=== PATIENT | male | born 1955 | race Caucasian/White ===

== ENCOUNTER → 2020-08-31 16:32 | Outpatient (CLI) | payer MEDICARE, SELFPAY ==
[2020-08-31 17:37] LABS: Basophils % 0.4 % (0.1-2.0); Eosinophils # 0.4 K/mm3 (0.0-0.4); Hematocrit 43.7 % (42.0-52.0); Hemoglobin 13.3 g/dL (14.1-18.0); Lymphocytes # 1.2 K/mm3 (0.7-4.5); Lymphocytes % 13.2 % (10-50); Mean Corpuscular HGB Conc 30.4 g/dL (31.8-35.4); Mean Corpuscular Hemoglobin 27.9 pg (27.0-31.2); Mean Corpuscular Volume 91.9 fl (80-94); Monocytes # 0.6 K/mm3 (0.1-1.0); Monocytes % 6.6 % (1.7-9.3); Neutrophils # 6.9 K/mm3 (1.8-7.8); Neutrophils % 75.8 % (37.0-80.0); Platelet Count 251 K/mm3 (142-424); Red Blood Count 4.76 M/mm3 (4.60-6.20); Red Cell Distribution Width 15.9 % (11.5-17.5); White Blood Count 9.1 K/mm3 (4.8-10.8)
[2020-08-31 21:50] LABS: Alanine Aminotransferase 16 U/L (12-78); Albumin Level 4.1 g/dl (3.5-5.0); Albumin/Globulin Ratio 1.2 (1.1-1.8); Alkaline Phosphatase 109 U/L (38-126); Anion Gap 14.2 mEq/L (5-15); Aspartate Amino Transferase 23 U/L (17-59); Bilirubin,Total 0.5 mg/dl (0.2-1.3); Blood Urea Nitrogen 30 mg/dl (9-20); Carbon Dioxide 29 mmol/L (22.0-30.0); Chloride 103 mmol/L (98-107); Chol/HDL Ratio 3.6 (1-3.5); Cholesterol 104 mg/dl (140-200); Estimated Glomerular Filt Rate 27 ml/min (>60); GFR (African American) 33 ML/MIN (>60); Globulin 3.4 g/dL (1.3-3.2); Glucose 76 mg/dl (74-100); HDL Cholesterol 29 mg/dl (40-60); Magnesium 2.2 mg/dl (1.6-2.3); Potassium 5.2 mmoL/L (3.5-5.1); Sodium 141 mmol/L (136-145); Total Protein,Serum 7.5 g/dl (6.3-8.2); Triglycerides 88 mg/dl (30-150); VLDL Cholesterol 18 mg/dL (0-40)
[2020-08-31 22:01] LABS: Direct LDL Cholesterol 54.66 mg/dL (100-129)
[2020-08-31 22:07] LABS: 25-OH Vitamin D, Total 67.8 ng/mL (30-100)
[2020-08-31 22:09] LABS: Hemoglobin A1C 5.8 % (4.0-6.0)
[2020-08-31 22:39] LABS: Vitamin B12 733 pg/mL (239-931)
[2020-08-31 23:33] LABS: Ferritin 24.6 ng/ml (17.9-464)
== END ==
PROVIDERS: Visit Provider Internal Medicine Adolescent Medicine
DX: R19.7 Diarrhea, unspecified (principal); E11.9 Type 2 diabetes mellitus without complications; I73.9 Peripheral vascular disease, unspecified; G25.81 Restless legs syndrome
CPT/HCPCS: 36415; 80053; 80061; 82306; 82607; 82728; 83036; 83735; 84443; 85025

== ENCOUNTER → 2020-11-18 16:24 | Outpatient (CLI) | payer MEDICARE, SELFPAY ==
[2020-11-18 16:59] LABS: Chloride 103 mmol/L (98-107)
[2020-11-18 17:00] LABS: Potassium 5.5 mmoL/L (3.5-5.1); Sodium 137 mmol/L (136-145)
[2020-11-18 17:03] LABS: Anion Gap 11.5 mEq/L (5-15); Blood Urea Nitrogen 18 mg/dl (9-20); Calcium 8.9 mg/dl (8.4-10.2); Carbon Dioxide 28 mmol/L (22.0-30.0); Estimated Glomerular Filt Rate 56 ml/min (>60); GFR (African American) 67 ML/MIN (>60); Glucose 81 mg/dl (74-100)
== END ==
PROVIDERS: Visit Provider Internal Medicine Adolescent Medicine
DX: E11.9 Type 2 diabetes mellitus without complications (principal); A09 Infectious gastroenteritis and colitis, unspecified
CPT/HCPCS: 36415; 80048

== ENCOUNTER → 2020-12-18 14:59 | Outpatient (CLI) | payer MEDICARE, SELFPAY ==
[2020-12-18 16:39] LABS: Basophils # 0.1 K/mm3 (0-0.2); Basophils % 0.7 % (0.1-2.0); Eosinophils # 0.4 K/mm3 (0.0-0.4); Eosinophils % 4.1 % (0.1-12.0); Hematocrit 44.1 % (42.0-52.0); Hemoglobin 13.8 g/dL (14.1-18.0); Lymphocytes # 1.3 K/mm3 (0.7-4.5); Mean Corpuscular HGB Conc 31.4 g/dL (31.8-35.4); Mean Corpuscular Hemoglobin 31.5 pg (27.0-31.2); Mean Corpuscular Volume 100.4 fl (80-94); Mean Platelet Volume 8.3 fl (7.4-10.4); Monocytes # 0.6 K/mm3 (0.1-1.0); Monocytes % 6.5 % (1.7-9.3); Neutrophils # 6.7 K/mm3 (1.8-7.8); Neutrophils % 73.8 % (37.0-80.0); Platelet Count 269 K/mm3 (142-424); Red Blood Count 4.39 M/mm3 (4.60-6.20); Red Cell Distribution Width 15.3 % (11.5-17.5)
[2020-12-18 20:05] LABS: Blood Urea Nitrogen 21 mg/dl (9-20); Calcium 9.3 mg/dl (8.4-10.2); Carbon Dioxide 28 mmol/L (22.0-30.0); Chloride 102 mmol/L (98-107); Estimated Glomerular Filt Rate 47 ml/min (>60); GFR (African American) 57 ML/MIN (>60); Glucose 75 mg/dl (74-100); Sodium 139 mmol/L (136-145)
== END ==
PROVIDERS: Visit Provider Internal Medicine
DX: N18.31 Chronic kidney disease, stage 3a (principal)
CPT/HCPCS: 36415; 80048; 85025

== ENCOUNTER → 2021-02-10 16:07 | Outpatient (CLI) | payer MEDICARE, SELFPAY ==
[2021-02-10 17:38] LABS: Basophils # 0.1 K/mm3 (0-0.2); Basophils % 1.1 % (0.1-2.0); Eosinophils # 0.4 K/mm3 (0.0-0.4); Eosinophils % 3.8 % (0.1-12.0); Hematocrit 49.4 % (42.0-52.0); Hemoglobin 15.3 g/dL (14.1-18.0); Lymphocytes # 1.6 K/mm3 (0.7-4.5); Lymphocytes % 16.6 % (10-50); Mean Corpuscular Hemoglobin 31.1 pg (27.0-31.2); Mean Corpuscular Volume 100.3 fl (80-94); Mean Platelet Volume 8.2 fl (7.4-10.4); Monocytes # 0.4 K/mm3 (0.1-1.0); Monocytes % 4.7 % (1.7-9.3); Neutrophils % 73.9 % (37.0-80.0); Platelet Count 248 K/mm3 (142-424); Red Blood Count 4.92 M/mm3 (4.60-6.20); Red Cell Distribution Width 14.2 % (11.5-17.5); White Blood Count 9.4 K/mm3 (4.8-10.8)
[2021-02-10 17:52] LABS: Chloride 102 mmol/L (98-107)
[2021-02-10 17:53] LABS: Potassium 5.1 mmoL/L (3.5-5.1); Sodium 140 mmol/L (136-145)
[2021-02-10 17:55] LABS: Alanine Aminotransferase 18 U/L (12-78); Alkaline Phosphatase 108 U/L (38-126); Anion Gap 14.1 mEq/L (5-15); Aspartate Amino Transferase 29 U/L (17-59); Bilirubin,Total 0.5 mg/dl (0.2-1.3); Blood Urea Nitrogen 25 mg/dl (9-20); Carbon Dioxide 29 mmol/L (22.0-30.0); Estimated Glomerular Filt Rate 41 ml/min (>60); GFR (African American) 50 ML/MIN (>60)
[2021-02-10 17:56] LABS: Albumin Level 4.5 g/dl (3.5-5.0); Albumin/Globulin Ratio 1.5 (1.1-1.8); Calcium 9.7 mg/dl (8.4-10.2); Chol/HDL Ratio 2.9 (1-3.5); Cholesterol 105 mg/dl (140-200); Glucose 85 mg/dl (74-100); HDL Cholesterol 36 mg/dl (40-60); Total Protein,Serum 7.5 g/dl (6.3-8.2); Triglycerides 86 mg/dl (30-150); VLDL Cholesterol 17 mg/dL (0-40)
[2021-02-10 17:59] LABS: Hemoglobin A1C 5.3 % (4.0-6.0)
[2021-02-10 18:07] LABS: Direct LDL Cholesterol 47.98 mg/dL (100-129)
[2021-02-10 18:31] LABS: Ferritin 20.6 ng/ml (17.9-464)
== END ==
PROVIDERS: Visit Provider Internal Medicine Adolescent Medicine
DX: E11.9 Type 2 diabetes mellitus without complications (principal); I73.9 Peripheral vascular disease, unspecified; G47.19 Other hypersomnia
CPT/HCPCS: 36415; 80053; 80061; 82728; 83036; 83735; 85025

== ENCOUNTER → 2021-03-23 14:49 | Outpatient (CLI) | payer MEDICARE, SELFPAY ==
[2021-03-23 15:30] LABS: Basophils % 0.3 % (0.1-2.0); Eosinophils # 0.3 K/mm3 (0.0-0.4); Eosinophils % 3.4 % (0.1-12.0); Hematocrit 48.4 % (42.0-52.0); Hemoglobin 15.4 g/dL (14.1-18.0); Lymphocytes # 1.4 K/mm3 (0.7-4.5); Mean Corpuscular HGB Conc 31.9 g/dL (31.8-35.4); Mean Corpuscular Hemoglobin 31.2 pg (27.0-31.2); Mean Corpuscular Volume 97.6 fl (80-94); Mean Platelet Volume 6.9 fl (7.4-10.4); Monocytes # 0.6 K/mm3 (0.1-1.0); Monocytes % 6.4 % (1.7-9.3); Neutrophils # 6.5 K/mm3 (1.8-7.8); Platelet Count 234 K/mm3 (142-424); Red Blood Count 4.96 M/mm3 (4.60-6.20); Red Cell Distribution Width 13.9 % (11.5-17.5); White Blood Count 8.8 K/mm3 (4.8-10.8)
[2021-03-23 17:07] LABS: Alanine Aminotransferase 34 U/L (12-78); Albumin Level 4.2 g/dl (3.5-5.0); Albumin/Globulin Ratio 1.4 (1.1-1.8); Alkaline Phosphatase 104 U/L (38-126); Anion Gap 11.3 mEq/L (5-15); Aspartate Amino Transferase 36 U/L (17-59); Bilirubin,Total 0.4 mg/dl (0.2-1.3); Blood Urea Nitrogen 25 mg/dl (9-20); Calcium 9.3 mg/dl (8.4-10.2); Carbon Dioxide 30 mmol/L (22.0-30.0); Chloride 102 mmol/L (98-107); Estimated Glomerular Filt Rate 47 ml/min (>60); GFR (African American) 57 ML/MIN (>60); Glucose 77 mg/dl (74-100); Potassium 5.3 mmoL/L (3.5-5.1); Sodium 138 mmol/L (136-145); Total Protein,Serum 7.2 g/dl (6.3-8.2)
[2021-03-23 17:12] LABS: C-Reactive Protein 37.9 mg/L (0-4)
[2021-03-23 17:32] LABS: Erythrocyte Sedimentation Rate 22 mm/hr (0-20)
== END ==
PROVIDERS: PCP Internal Medicine Adolescent Medicine; Visit Provider Nurse Practitioner Family
DX: R23.4 Changes in skin texture; E11.9 Type 2 diabetes mellitus without complications; Z79.84 Long term (current) use of oral hypoglycemic drugs
CPT/HCPCS: 36415; 80053; 85025; 85651; 86140

== ENCOUNTER 2021-07-07 13:38 | Emergency (ER) | payer OTHER, MEDICARE, MEDICAID, SELFPAY ==
[2021-07-07] VITALS (10 sets, daily range): BP systolic 91–104; BP diastolic 45–74; PULSE 59–65; RESP 18; TEMP 36.8; O2SAT 93–97; BMI 33.0
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
--- NOTE | 2021-07-07 14:12 | PC.NURSE ---
YVONNE [place] aware of low BP; checking it with manual cuff at this time
--- NOTE | 2021-07-07 14:15 | PC.NURSE ---
ED MD at
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
[2021-07-07 15:29] LABS: Basophils # 0.1 K/mm3 (0-0.2); Basophils % 0.2 % (0.1-2.0); Eosinophils % 0.1 % (0.1-12.0); Hematocrit 36.6 % (42.0-52.0); Hemoglobin 11.7 g/dL (14.1-18.0); Lymphocytes # 0.7 K/mm3 (0.7-4.5); Lymphocytes % 2.7 % (10-50); Mean Corpuscular HGB Conc 31.9 g/dL (31.8-35.4); Mean Corpuscular Hemoglobin 31.3 pg (27.0-31.2); Mean Corpuscular Volume 98.1 fl (80-94); Monocytes # 0.5 K/mm3 (0.1-1.0); Monocytes % 2.1 % (1.7-9.3); Neutrophils # 22.3 K/mm3 (1.8-7.8); Neutrophils % 94.8 % (37.0-80.0); Platelet Count 357 K/mm3 (142-424); Red Blood Count 3.73 M/mm3 (4.60-6.20); White Blood Count 23.5 K/mm3 (4.8-10.8)
--- NOTE | 2021-07-07 15:29 | PC.NURSE ---
Notified radiology of pt stating he would go to his CT scans now
[2021-07-07 15:30] LABS: Chloride 104 mmol/L (98-107); Potassium 4.6 mmoL/L (3.5-5.1); Sodium 136 mmol/L (136-145)
[2021-07-07 15:33] LABS: Alanine Aminotransferase 25 U/L (12-78); Albumin Level 3.2 g/dl (3.5-5.0); Albumin/Globulin Ratio 0.9 (1.1-1.8); Alkaline Phosphatase 180 U/L (38-126); Anion Gap 16.6 mEq/L (5-15); Aspartate Amino Transferase 37 U/L (17-59); Bilirubin,Total 0.5 mg/dl (0.2-1.3); Blood Urea Nitrogen 70 mg/dl (9-20); Calcium 8.5 mg/dl (8.4-10.2); Carbon Dioxide 20 mmol/L (22.0-30.0); Creatinine Clearance Estimated 26 mL/min (50-200); Estimated Glomerular Filt Rate 13 ml/min (>60); GFR (African American) 16 ML/MIN (>60); Globulin 3.5 g/dL (1.3-3.2); Glucose 118 mg/dl (74-100); Total Protein,Serum 6.7 g/dl (6.3-8.2)
[2021-07-07 15:40] LABS: MANUAL DIFFERENTIAL MANUAL DIFFERENTIAL (MANUAL DIFF)
--- NOTE | 2021-07-07 15:42 | PC.NURSE ---
pt returned from CT by stretcher with diagnostic tech
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
--- NOTE | 2021-07-07 16:41 | PC.NURSE ---
Contacted MDs; awaiting call back
--- NOTE | 2021-07-07 16:50 | PC.NURSE ---
pt placed on 2 liters of O2 per his sats dropping to 85 while resting; MD made aware. When I placed the pt on the oxygen, he states he was ready to get home because he had things to do and animals to take care of. He also stated that if i thought he was gonna be staying here all night, i was wrong and he would like to speak to the ER MD. Dr. Stuart was notified.
--- NOTE | 2021-07-07 16:54 | PC.NURSE ---
ED MD at
--- NOTE | 2021-07-07 16:59 | PC.NURSE ---
Padmini RN at speaking with patient
--- NOTE | 2021-07-07 17:13 | PC.NURSE ---
contacting [facility] to notify them that patient is choosing to leave AMA. they are aware at this time
--- NOTE | 2021-07-07 17:15 | CARE MANAGER ---
Contacted [employer]. Patient will have to pay private pay. They will be here between 1830 and 1900. Please call [employer] if he finds different ride.
--- NOTE | 2021-07-07 17:20 | PC.NURSE ---
armorer technician went into patient room to see if patient had any needs. pt stated well just so you know i am going home. i am not staying here. armorer technician informed MD. MD went to the bedside to speak with patient about critical findings and importance of patient's impatient care. pt became agitated raising voice at MD. This nurse entered the room to speak with patient. this nurse informed patient of radiology and lab findings and explained why MD was concerned for pt health. pt states i understood every word that doctor said. i know i have a chance of dying on the way home but i have animals at home i have to feed. pt states i want to leave and i know the risks of that. this nurse tried to continue to explain importance of staying at the hospital. pt refused and asked for AMA paper. AMA paper signed by patient, this nurse and latasha dean. pt IV was d/c and pt went to the lobby to wait for transportation.
[2021-07-07 19:01] LABS: Anisocytosis 1+; Lymphocytes % 6 % (10-50); Monocytes % 1 % (2-9); Neutrophils % 93 % (42-76); Platelet Estimate Normal; Total Cells Counted 100
== END 2021-07-07 18:07 | disposition left against medical advice (07) ==
PROVIDERS: Emergency Provider Emergency Medicine; PCP Internal Medicine Adolescent Medicine
DX: M54.2 Cervicalgia (principal); N17.1 Acute kidney failure with acute cortical necrosis; A41.9 Sepsis, unspecified organism; R65.20 Severe sepsis without septic shock; E11.9 Type 2 diabetes mellitus without complications
CPT/HCPCS: 70450; 71046; 71250; 72125; 74176; 80053; 85007; 85025; 96360; 96361; 96375; 99284; J0696

== ENCOUNTER 2021-07-18 12:53 | Emergency (ER) | payer MEDICARE, MEDICAID, SELFPAY ==
[2021-07-18] VITALS (9 sets, daily range): BP systolic 101–132; BP diastolic 40–75; PULSE 72–82; RESP 12–20; TEMP 36.3–36.6; O2SAT 92–97; BMI 32.3
--- NOTE | 2021-07-18 13:00 | PC.NURSE ---
Briana Ayala RN at cleaning up patient
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
--- NOTE | 2021-07-18 13:15 | HMH.EDGENADL ---
ED Disposition Clinical Impression: Colon perforation, Abscess of sigmoid colon Disposition: Xfer Short-Term Hosp Condition on Discharge: Critical Referrals: Saran San MD [Primary Care Provider] - - Critical Care Critical Care Time: Yes Attestation: On 07/18/21, the high probability of a clinically significant, sudden or life threatening deterioration of the following system(s) required my full and direct attention, intervention and personal management. The time I documented below is in addition to time spent performing reported procedures but includes the following listed in this critical care notation. Total Critical Care Time: 35 Vital system(s) involved:: Renal Failure, Shock (Septic) My critical care processes included: Assessment & monitoring of V/S, Initial and Re-exams, Data Review/Interpretation, Coordinating Care, Medication Orders and management, Documentation Medical Decision Making - Medical Records Medical records reviewed: Yes: I reviewed the patient's medical records. - Mick Inquiry Pt receiving controlled substance: No Vital Signs: 07/18/21 12:54 07/18/21 13:30 07/18/21 14:02 Temperature 97.4 F L Temperature Source Oral Pulse Rate 73 78 Pulse Rate [Right Brachial] 72 Respiratory Rate 20 16 Blood Pressure 107/44 L 127/58 L Blood Pressure [Right Arm] 107/44 L Blood Pressure Mean 70 71 Blood Pressure Mean [Right Arm] 65 Blood Pressure Source [Right Arm] Automatic Cuff Blood Pressure Position [Right Arm] Supine 02 Sat by Pulse Oximetry 92 L 92 L 93 L Oxygen Delivery Method Room Air Room Air 07/18/21 14:30 07/18/21 15:00 07/18/21 15:24 Temperature Temperature Source Pulse Rate 77 82 74 Pulse Rate [Right Brachial] Respiratory Rate 17 12 16 Blood Pressure 118/54 L 101/75 L 132/48 L Blood Pressure [Right Arm] Blood Pressure Mean 69 81 78 Blood Pressure Mean [Right Arm] Blood Pressure Source [Right Arm] Blood Pressure Position [Right Arm] 02 Sat by Pulse Oximetry 97 94 L 94 L Oxygen Delivery Method 07/18/21 15:31 Temperature Temperature Source Pulse Rate 76 Pulse Rate [Right Brachial] Respiratory Rate 16 Blood Pressure 114/40 L Blood Pressure [Right Arm] Blood Pressure Mean 64 Blood Pressure Mean [Right Arm] Blood Pressure Source [Right Arm] Blood Pressure Position [Right Arm] 02 Sat by Pulse Oximetry 95 Oxygen Delivery Method - Lab Data Lab Results 07/18/21 13:12: VBG pH 7.15 L, VBG pCO2 31.0 L, VBG pO2 108.2 H, VBG HCO3 10.5 L, VBG Total CO2 11.5 L, VBG O2 Saturation 97.0 H, VBG Base Excess -18.4 L 07/18/21 14:00: WBC 13.6 H, RBC 3.89 L, Hgb 11.9 L, Hct 39.1 L, MCV 100.5 H, MCH 30.6, MCHC 30.5 L, RDW 16.3, Plt Count 480 H, MPV 8.7, Neut % (Auto) 90.5 H, Lymph % (Auto) 5.4 L, [place] % (Auto) 3.1, Eos % (Auto) 0.2, Baso % (Auto) 0.8, Neut # (Auto) 12.3 H, Lymph # (Auto) 0.7, [place] # (Auto) 0.4, Eos # (Auto) 0.0, Baso # (Auto) 0.1, Total Counted 100, Neutrophils % (Manual) 82 H, Band Neutrophils % 6.0, Lymphocytes % (Manual) 10, Monocytes % (Manual) 1 L, Eosinophils % (Manual) 1, Platelet Estimate Slight increase, Macrocytosis 1+ 07/18/21 14:00: Sodium 146 H, Potassium 5.2 H, Chloride 115 H, Carbon Dioxide 9 L*, Anion Gap 27.2 H, BUN 143 H*, Creatinine 5.20 H, Estimated Creat Clear 23, Estimated GFR 11 L*, Est GFR ( Amer) 14 L*, Glucose 139 H, Calcium 8.4, Phosphorus 9.4 H, Magnesium 2.4 H, Total Bilirubin 0.5, AST 41, ALT 22, Alkaline Phosphatase 161 H, Total Creatine Kinase 174 H, Total Protein 7.0, Albumin 3.2 L, Globulin 3.8 H, Albumin/Globulin Ratio 0.8 L 07/18/21 14:00: Lactate 1.0 07/18/21 14:34: Urine Color Yellow, Urine Appearance Clear, Urine pH 5.5, Ur Specific Delta 1.025, Urine Protein Negative, Urine Glucose (UA) Negative, Urine Ketones Negative, Urine Blood Negative, Urine Nitrate Negative, Urine Bilirubin Negative, Urine Urobilinogen 0.2, Ur Leukocyte Esterase Negative, Urine WBC Occasional, Ur Squamous Epith Ce
--- NOTE | 2021-07-18 13:35 | PC.NURSE ---
pt is going for abdominal ct now
--- NOTE | 2021-07-18 13:36 | PC.NURSE ---
pt to with CT director of undergraduate admissions by rianna
--- NOTE | 2021-07-18 13:49 | PC.NURSE ---
pt return from CT; hooked back to monitor
--- NOTE | 2021-07-18 14:07 | PC.NURSE ---
called RT for vbg
--- NOTE | 2021-07-18 14:15 | PC.NURSE ---
[facility] called and is speaking with ROSALINA VALERIO at this time
[2021-07-18 14:20] LABS: VBG Base Excess -18.4 mmol/L (-2.4-2.3); VBG HCO3 10.5 mmol/L (23-30); VBG PO2 108.2 mmol/L (28-40); VBG Total CO2 11.5 mmol/L (23-27)
[2021-07-18 14:22] LABS: VBG PH 7.15 mmol/L (7.31-7.41)
--- NOTE | 2021-07-18 14:26 | PC.NURSE ---
Federico Evans for ER MD
[2021-07-18 14:33] LABS: Basophils # 0.1 K/mm3 (0-0.2); Basophils % 0.8 % (0.1-2.0); Eosinophils % 0.2 % (0.1-12.0); Hematocrit 39.1 % (42.0-52.0); Hemoglobin 11.9 g/dL (14.1-18.0); Lymphocytes # 0.7 K/mm3 (0.7-4.5); Lymphocytes % 5.4 % (10-50); Mean Corpuscular HGB Conc 30.5 g/dL (31.8-35.4); Mean Corpuscular Hemoglobin 30.6 pg (27.0-31.2); Mean Corpuscular Volume 100.5 fl (80-94); Mean Platelet Volume 8.7 fl (7.4-10.4); Monocytes # 0.4 K/mm3 (0.1-1.0); Monocytes % 3.1 % (1.7-9.3); Neutrophils # 12.3 K/mm3 (1.8-7.8); Neutrophils % 90.5 % (37.0-80.0); Platelet Count 480 K/mm3 (142-424); Red Blood Count 3.89 M/mm3 (4.60-6.20); Red Cell Distribution Width 16.3 % (11.5-17.5); White Blood Count 13.6 K/mm3 (4.8-10.8)
[2021-07-18 14:36] LABS: Chloride 115 mmol/L (98-107); Potassium 5.2 mmoL/L (3.5-5.1); Sodium 146 mmol/L (136-145)
[2021-07-18 14:38] LABS: Alanine Aminotransferase 22 U/L (12-78); Alkaline Phosphatase 161 U/L (38-126); Anion Gap 27.2 mEq/L (5-15); Aspartate Amino Transferase 41 U/L (17-59); Bilirubin,Total 0.5 mg/dl (0.2-1.3); Creatine Kinase 174 U/L (55-170); Creatinine Clearance Estimated 23 mL/min (50-200); Estimated Glomerular Filt Rate 11 ml/min (>60); GFR (African American) 14 ML/MIN (>60); Phosphorous 9.4 mg/dl (2.5-4.5)
[2021-07-18 14:39] LABS: Albumin Level 3.2 g/dl (3.5-5.0); Albumin/Globulin Ratio 0.8 (1.1-1.8); Calcium 8.4 mg/dl (8.4-10.2); Globulin 3.8 g/dL (1.3-3.2); Glucose 139 mg/dl (74-100); MANUAL DIFFERENTIAL MANUAL DIFFERENTIAL (MANUAL DIFF); Magnesium 2.4 mg/dl (1.6-2.3)
[2021-07-18 14:50] LABS: Carbon Dioxide 9 mmol/L (22.0-30.0)
--- NOTE | 2021-07-18 14:50 | PC.NURSE ---
lab called with critical result; they were transferred to Briana Ayala RN
[2021-07-18 14:51] LABS: Blood Urea Nitrogen 143 mg/dl (9-20)
--- NOTE | 2021-07-18 14:53 | PC.NURSE ---
ROSALINA VALERIO at speaking with patient
[2021-07-18 15:00] LABS: Microscopic, Urine URINE MICROSCOPIC (MICROSCOPIC)
--- NOTE | 2021-07-18 15:04 | PC.NURSE ---
Dr. Antonia tyson for ED MD
--- NOTE | 2021-07-18 15:07 | PC.NURSE ---
ROSALINA VALERIO on phone with Dr. Knight
[2021-07-18 15:14] LABS: Appearance,Urine CLEAR (Clear); Bilirubin,Urine Negative (Negative); Blood, Urine Negative (Negative); Color,Urine YELLOW (Yellow); Glucose,Urine (UA) Negative (Negative); Ketones,Urine Negative (Negative); Leukocyte Esterase,Urine Negative (Negative); Nitrate,Urine Negative (Negative); PH,Urine 5.5 (5.0-8.5); Protein,Urine Negative (Negative); Specific Gravity, Urine 1.025 (1.005-1.030); Urobilinogen,Urine 0.2 EU/dl (0.2)
--- NOTE | 2021-07-18 15:17 | PC.NURSE ---
ROSALINA VALERIO speaking with Dr. Knight again at this time
--- NOTE | 2021-07-18 15:18 | PC.NURSE ---
spoke with nate in pharmacy about rally pack rate. 250ml/hr approved by pharmacy
--- NOTE | 2021-07-18 15:20 | PC.NURSE ---
Contacting [facility] per ER MDs request for possible transfer
[2021-07-18 15:26] LABS: Amorphous Sediment,Urine Trace /lpf; Bacteria,Urine Trace /lpf; Hyaline Casts,Urine Occasional #/lpf (0); Squamous Epithelial Cell,Urine Occasional #/hpf (0-5); WBC,Urine Occasional #/hpf (0-3)
--- NOTE | 2021-07-18 15:38 | PC.NURSE ---
Awaiting a call back from General Surgery to speak with ROSALINA VALERIO
[2021-07-18 15:46] LABS: Eosinophils % 1 % (0-3); Lymphocytes % 10 % (10-50); Macrocytosis 1+; Monocytes % 1 % (2-9); Neutrophils % 82 % (42-76); Platelet Estimate Slight Increase; Total Cells Counted 100
--- NOTE | 2021-07-18 16:06 | PC.NURSE ---
patient is asleep at this time; still awaiting a call back from general surgery
--- NOTE | 2021-07-18 16:14 | PC.NURSE ---
ER speaking with patient regarding update on POC
--- NOTE | 2021-07-18 16:22 | PC.NURSE ---
Contacted [facility] and spoke with Darryn regarding patient transfer
--- NOTE | 2021-07-18 16:26 | PC.NURSE ---
rupesh bailey rn calling report to [facility]
--- NOTE | 2021-07-18 16:30 | PC.NURSE ---
report called to [facility]
--- NOTE | 2021-07-18 16:34 | PC.NURSE ---
ED MD at [facility] speaking with patient regarding POC; ED MD gave pt a pepsi
--- NOTE | 2021-07-18 16:57 | PC.NURSE ---
pt transferred to EMS stretcher with assist x 4 from ED stretcher without complications. Pt into [facility], assist times 2 without complications.
== END 2021-07-18 17:14 | disposition short-term general hospital (02) ==
PROVIDERS: Emergency Provider Student in an Organized Health Care Education/Training Program; PCP Internal Medicine Adolescent Medicine
DX: K57.20 Diverticulitis of large intestine with perforation and abscess without bleeding (principal); K63.0 Abscess of intestine; E87.2 Acidosis; R41.0 Disorientation, unspecified; E11.9 Type 2 diabetes mellitus without complications
CPT/HCPCS: 51702; 74176; 80053; 81001; 82550; 82803; 83605; 83735; 84100; 85007; 85025; 87040; 96365; 96366; 96367; 99285; J2543

== ENCOUNTER 2021-09-10 08:14 | Emergency (ER) | payer MEDICARE, MEDICAID, SELFPAY ==
[2021-09-10 08:14] VITALS: BP 104/47; PULSE 59; RESP 16; TEMP 36.8; O2SAT 98; BMI 26.4
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
--- NOTE | 2021-09-10 08:41 | HMH.EDGENADL ---
ED Disposition Clinical Impression: Colostomy care Constipation Qualifiers: Constipation type: slow transit constipation Qualified Code(s): K59.01 - Slow transit constipation Disposition: Home, Self-Care Condition on Discharge: Good Instructions: DI for Colonoscopy, How to Care for Your Colostomy or Ileostomy, High-Fiber Diet, DI for Constipation Additional Instructions: You have been evaluated for decreased ostomy output. This is likely due to constipation and a diet. It is very important that you increase your daily intake of fiber. Please include fruits and vegetables in your diet, grains, bran. Inc. water to stay hydrated. Follow-up with Dr. Whitaker at next available appointment. Follow-up with your surgeon from . Return to the emergency department for any new or worsening symptoms, pain, vomiting, other concerns. Referrals: Saran San MD [Primary Care Provider] - Time of Disposition: 10:33 - Critical Care Critical Care Time: No Attestation: On 09/10/21, the high probability of a clinically significant, sudden or life threatening deterioration of the following system(s) required my full and direct attention, intervention and personal management. The time I documented below is in addition to time spent performing reported procedures but includes the following listed in this critical care notation. Medical Decision Making - Medical Records Medical records reviewed: Yes: I reviewed the patient's medical records. - Mick Inquiry Pt receiving controlled substance: No Vital Signs: 09/10/21 08:14 Temperature 98.3 F Temperature Source Oral Pulse Rate [Right Radial] 59 L Respiratory Rate 16 Blood Pressure [Right Arm] 104/47 L Blood Pressure Mean [Right Arm] 66 Blood Pressure Source [Right Arm] Automatic Cuff Blood Pressure Position [Right Arm] Sitting 02 Sat by Pulse Oximetry 98 Oxygen Delivery Method Room Air - Lab Data Lab Results 09/10/21 08:45: WBC 9.4, RBC 3.96 L, Hgb 11.8 L, Hct 40.3 L, MCV 101.9 H, MCH 29.8, MCHC 29.2 L, RDW 16.9, Plt Count 335, MPV 7.7, Neut % (Auto) 70.9, Lymph % (Auto) 15.1, [place] % (Auto) 5.7, Eos % (Auto) 7.4, Baso % (Auto) 0.8, Neut # (Auto) 6.7, Lymph # (Auto) 1.4, [place] # (Auto) 0.5, Eos # (Auto) 0.7 H, Baso # (Auto) 0.1 09/10/21 08:45: Sodium 138, Potassium 4.5, Chloride 106, Carbon Dioxide 26, Anion Gap 10.5, BUN 28 H, Creatinine 1.70 H, Estimated Creat Clear 56, Estimated GFR 41 L, Est GFR ( Amer) 49 L, Glucose 96, Calcium 8.9, Total Bilirubin < 0.1 L, AST 21, ALT 14, Alkaline Phosphatase 110, Total Protein 7.2, Albumin 3.5, Globulin 3.7 H, Albumin/Globulin Ratio 0.9 L, Lipase 59 Result diagrams: 09/10/21 08:45 09/10/21 08:45 Medical Decision Narrative: In summary this is a 66-year-old male with history of diverticulitis with perforation, requiring colostomy presenting to the emergency department with decreased output. Patient clinically stable on arrival. Vital signs within normal limits. He is abdominal pain. No nausea, vomiting, fever, signs of systemic illness. Will obtain screening CBC, CMP, lipase. Will obtain CT scan. Patient has allergy to IV contrast. Will obtain without contrast. Initial laboratory results are reassuring. Creatinine is 1.7, this appears to be near patient's baseline. Electrolytes within normal limits. CT scan of the abdomen and pelvis shows postoperative surgical changes. There is a large amount of retained stool, but no evidence of obstruction. Patient is having output, it is just firm. I believe this is likely due to his diet. He says he eats mostly snacks. Recommended he increase fiber intake with fruits and vegetables. Drink water. He was told that Dr. Whitaker will help him manage his ostomy. He does not think he is going to see a general surgeon at . Given new ostomy supplies in the emergency department. He has no abdominal pain at this time. No nausea. He tolerated a full breakfast tray without difficulty
[2021-09-10 08:54] LABS: Basophils # 0.1 K/mm3 (0-0.2); Basophils % 0.8 % (0.1-2.0); Eosinophils # 0.7 K/mm3 (0.0-0.4); Eosinophils % 7.4 % (0.1-12.0); Hematocrit 40.3 % (42.0-52.0); Hemoglobin 11.8 g/dL (14.1-18.0); Lymphocytes # 1.4 K/mm3 (0.7-4.5); Lymphocytes % 15.1 % (10-50); Mean Corpuscular HGB Conc 29.2 g/dL (31.8-35.4); Mean Corpuscular Hemoglobin 29.8 pg (27.0-31.2); Mean Corpuscular Volume 101.9 fl (80-94); Mean Platelet Volume 7.7 fl (7.4-10.4); Monocytes # 0.5 K/mm3 (0.1-1.0); Monocytes % 5.7 % (1.7-9.3); Neutrophils # 6.7 K/mm3 (1.8-7.8); Neutrophils % 70.9 % (37.0-80.0); Platelet Count 335 K/mm3 (142-424); Red Blood Count 3.96 M/mm3 (4.60-6.20); Red Cell Distribution Width 16.9 % (11.5-17.5); White Blood Count 9.4 K/mm3 (4.8-10.8)
[2021-09-10 09:03] LABS: Alanine Aminotransferase 14 U/L (12-78); Albumin Level 3.5 g/dl (3.5-5.0); Albumin/Globulin Ratio 0.9 (1.1-1.8); Alkaline Phosphatase 110 U/L (38-126); Anion Gap 10.5 mEq/L (5-15); Aspartate Amino Transferase 21 U/L (17-59); Blood Urea Nitrogen 28 mg/dl (9-20); Calcium 8.9 mg/dl (8.4-10.2); Carbon Dioxide 26 mmol/L (22.0-30.0); Chloride 106 mmol/L (98-107); Creatinine Clearance Estimated 56 mL/min (50-200); Estimated Glomerular Filt Rate 41 ml/min (>60); GFR (African American) 49 ML/MIN (>60); Globulin 3.7 g/dL (1.3-3.2); Glucose 96 mg/dl (74-100); Lipase 59 U/L (23-300); Potassium 4.5 mmoL/L (3.5-5.1); Sodium 138 mmol/L (136-145); Total Protein,Serum 7.2 g/dl (6.3-8.2)
--- NOTE | 2021-09-10 09:04 | PC.NURSE ---
PT RETURNED FROM CT AT THIS TIME
[2021-09-10 09:05] VITALS: BP 112/52; PULSE 69; RESP 15; O2SAT 97
[2021-09-10 09:05] LABS: Bilirubin,Total < 0.1 mg/dl (0.2-1.3)
--- NOTE | 2021-09-10 09:26 | PC.NURSE ---
Pt provided with warm blanket.
--- NOTE | 2021-09-10 09:46 | PC.NURSE ---
ED MD AT BEDSIDE TO REEVALUATE PT, PT REQUESTING BREAKFAST TRAY. DIETARY NOTIFIED
--- NOTE | 2021-09-10 09:48 | PC.NURSE ---
Called for patient breakfast tray
[2021-09-10 10:00] VITALS: BP 101/57; PULSE 62; RESP 16; O2SAT 98
--- NOTE | 2021-09-10 10:04 | PC.NURSE ---
REGULAR BREAKFAST TRAY SET-UP AT THIS TIME, PT WITHOUT NEEDS
--- NOTE | 2021-09-10 10:09 | PC.NURSE ---
Spoke with Antonina in Care Management and was advised that once pt is ready for D/C, she will [facility].
--- NOTE | 2021-09-10 10:30 | PC.NURSE ---
Care management is calling [facility] for pt to have transportation back home
--- NOTE | 2021-09-10 11:07 | CARE MANAGER ---
Contacted [facility] for patient to have ride home. Patient to pay privately and agrees to do this.
[2021-09-10 11:31] VITALS: BP 107/49; PULSE 77; RESP 16; O2SAT 98
--- NOTE | 2021-09-10 11:37 | PC.NURSE ---
Patient's transportation has notified us that he will be here in 5-10 minutes
[2021-09-10 12:05] VITALS: BP 111/56; PULSE 62; RESP 18; TEMP 36.8; O2SAT 99
== END 2021-09-10 12:05 | disposition home or self-care (01) ==
PROVIDERS: Emergency Provider Emergency Medicine; PCP Internal Medicine Adolescent Medicine
DX: K59.01 Slow transit constipation (principal); Z43.3 Encounter for attention to colostomy; Z46.89 Encounter for fitting and adjustment of other specified devices
CPT/HCPCS: 74176; 80053; 83690; 85025; 99284

== ENCOUNTER → 2021-10-25 08:43 | Outpatient (CLI) | payer MEDICARE, MEDICAID, SELFPAY ==
--- NOTE | 2021-10-25 08:46 | FL_ITS ---
FINAL REPORT CLINICAL HISTORY: DIVERTICULITIS W/O BLEEDING, REVERSAL OF CHOLOSTOMY BAG FINDINGS: BARIUM ENEMA HISTORY: . Diverticulitis. Previous colon surgery. PROCEDURE: Single-contrast Gastrografinwas introduced by gravity drip. Spot and overhead films were obtained. FINDINGS: Heading Up Machine Operator film demonstrates a left lower quadrant colostomy. Contrast was initially placed through the patient's rectum demonstrating an unremarkable Kristina's pouch. Secondarily, a Graham catheter was placed through the patient's left lower quadrant ostomy and contrast was introduced into retrograde fashion into the patient's colon. There is moderate amount of stool throughout the colon but no annular or constricting lesions. IMPRESSION: Gastrografin enema demonstrating an unremarkable Kristina's pouch. There is retained stool throughout the colon but no annular or constricting lesions. FLUOROSCOPY TIME:2 minutes 30 seconds Films reviewed , interpreted and dictated by Dr. Briggs. Transcribed by Triston Kang PA-C. Reviewed, Interpreted and Dictated by Cedric Briggs MD Transcribed by ISELA Ahuja Authenticated and [facility]
== END ==
PROVIDERS: PCP Internal Medicine Adolescent Medicine; Visit Provider Surgery
DX: K57.20 Diverticulitis of large intestine with perforation and abscess without bleeding (principal)
CPT/HCPCS: 74270

== ENCOUNTER 2021-12-16 17:34 | Emergency (ER) | payer MEDICARE, MEDICAID, SELFPAY ==
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
[2021-12-16 17:59] VITALS: BP 172/88; PULSE 66; RESP 20; TEMP 36.6; O2SAT 98; BMI 26.4
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
[2021-12-16 19:08] VITALS: BP 160/80; PULSE 65; RESP 18; TEMP 36.6; O2SAT 98
== END 2021-12-16 19:10 | disposition home or self-care (01) ==
PROVIDERS: Emergency Provider Student in an Organized Health Care Education/Training Program; PCP Internal Medicine Adolescent Medicine
DX: M54.6 Pain in thoracic spine (principal); M54.2 Cervicalgia; S32.010A Wedge compression fracture of first lumbar vertebra, initial encounter for closed fracture; R20.2 Paresthesia of skin; M62.838 Other muscle spasm; Z79.02 Long term (current) use of antithrombotics/antiplatelets; Z79.1 Long term (current) use of non-steroidal anti-inflammatories (NSAID); Z79.899 Other long term (current) drug therapy; Z91.041 Radiographic dye allergy status; V49.40XA Driver injured in collision with unspecified motor vehicles in traffic accident, initial encounter
CPT/HCPCS: 70450; 72125; 72128; 72131; 99285

== ENCOUNTER 2021-12-19 08:15 | Emergency (ER) | payer MEDICARE, MEDICAID, SELFPAY ==
[2021-12-19 08:19] VITALS: BP 115/59; PULSE 72; RESP 18; TEMP 36.8; O2SAT 100; BMI 25.7
--- NOTE | 2021-12-19 08:30 | PC.NURSE ---
ROSALINA VALERIO at
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
[2021-12-19 10:00] VITALS: BP 120/53; PULSE 70; RESP 18; TEMP 36.8; O2SAT 100
== END 2021-12-19 10:00 | disposition home or self-care (01) ==
PROVIDERS: Emergency Provider Emergency Medicine; PCP Internal Medicine Adolescent Medicine
DX: M79.604 Pain in right leg (principal); M79.671 Pain in right foot; V87.7XXA Person injured in collision between other specified motor vehicles (traffic), initial encounter
CPT/HCPCS: 73552; 73590; 73620; 96372; 99283

== ENCOUNTER 2021-12-29 15:02 | Emergency (ER) | payer MEDICARE, MEDICAID, SELFPAY ==
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
[2021-12-29 16:25] VITALS: BP 124/52; PULSE 67; RESP 15; TEMP 36.4; O2SAT 100; BMI 29.0
[2021-12-29 17:36] VITALS: BP 124/52; PULSE 67; RESP 16; TEMP 36.4
== END 2021-12-29 17:37 | disposition home or self-care (01) ==
PROVIDERS: Emergency Provider Nurse Practitioner Family; PCP Internal Medicine Adolescent Medicine
DX: L03.115 Cellulitis of right lower limb
CPT/HCPCS: 96372; 99212; G0463; J0696

== ENCOUNTER 2022-01-09 13:59 | Emergency (ER) | payer MEDICARE, MEDICAID, SELFPAY ==
[2022-01-09 14:01] VITALS: BP 118/60; PULSE 88; RESP 18; TEMP 36.4; O2SAT 96; BMI 25.7
[2022-01-09 14:30] LABS: POC Glucose,Bedside 131 (70-110)
--- NOTE | 2022-01-09 15:08 | HMH.EDGENADL ---
Discharge Plan Disposition Patient Disposition: Home, Self-Care Condition: Good Prescriptions Prescriptions: No Action Januvia 100 mg tablet 100 mg PO Label Comments: TAKE ONE TABLET BY MOUTH EVERY DAY metoprolol tartrate 25 mg tablet 25 mg PO Label Comments: TAKE ONE TABLET BY MOUTH TWICE DAILY hydralazine 25 mg tablet 25 mg PO Label Comments: TAKE ONE TABLET BY MOUTH EVERY DAY ropinirole 1 mg tablet 1 mg PO Label Comments: TAKE ONE TABLET BY MOUTH THREE TIMES DAILY clindamycin HCl 300 mg capsule 300 mg PO TID 7 Days Qty: 21 0RF tramadol 50 mg tablet 50 mg PO Label Comments: TAKE ONE TABLET BY MOUTH EVERY TWELVE HOURS NEEDED FOR PAIN MAY CAUSE DROWSINESS loperamide 2 mg capsule 2 mg PO Label Comments: TAKE ONE CAPSULE BY MOUTH EVERY 4 HOURS FOR 7 DAYS gabapentin 600 mg tablet 600 mg PO TID lisinopril 10 mg tablet 10 mg PO DAILY duloxetine 60 mg capsule,delayed release(DR/EC) 60 mg PO DAILY atorvastatin 20 mg tablet 20 mg PO DAILY diclofenac sodium [Voltaren Arthritis Pain] 1 % gel 4 g TOPICAL QID Rx Instructions: apply to single knee, ankle, foot; for foot includes sole/toes/top of foot amlodipine 10 mg tablet 10 mg PO DAILY trazodone 100 mg tablet 100 mg PO DAILY clopidogrel 75 mg tablet 75 mg PO DAILY donepezil 10 mg tablet 10 mg PO HS furosemide 20 mg tablet 20 mg PO DAILY multivitamin [Multiple Vitamins] Tablet 1 tab PO DAILY methocarbamol [Methocarbamol] 750 mg tablet 750 mg PO Q6 PRN (Reason: Muscle Spasm) Qty: 30 0RF sulfamethoxazole-trimethoprim [Bactrim DS] 800-160 mg Tablet 1 tab PO BID Qty: 20 0RF cephalexin 500 mg capsule 500 mg PO QID Qty: 40 0RF Referrals Follow up/Referrals: Saran San MD [Primary Care Provider] - See instructions Activity Restrictions/Add. Instructions Additional Instructions/Restrictions: Please check with your primary care physician and ask if they can prescribe you home health to come to your home to help with dressing changes. Also call your surgeon and let them know you are having difficulty changing the dressings. Please keep surgical site clean and dry. Return if worsening pain, purulent white drainage or any other concerning signs of infection. Clinical Impressions Clinical Impression: Visit for wound check Instructions Patient Instructions: How to Care for a Surgical Wound Print Language Print Language: Togolese Discharge ED Provider: Isabel Lehman General Adult HPI General Chief complaint: Recheck/Abnormal Lab/Rx Stated complaint: surgical site dressing trouble Time Seen by Provider: 01/09/22 14:15 Mode of Arrival: Ambulatory Source of Information: Patient Limitations: No Limitations Description of Symptoms (Recalled from ER Triage Doc. by RN): pt reports he had a colostomy reversal on monday of last week, pt reports d/c from the hospital on monday. Pt reports is suppsed to change the dressing to his wound daily with packing. Pt reports his was unable to change the dressing at home. Pt presents to ED with packing strips. Pt reports the nurse production assembly supervisor for his doctor at told him to come to the ER and get an order for home health to get his dressing changed daily. History of Present Illness HPI narrative: Mr. Boothe is a 66 yo male presenting to the ED for concern for dressing changes on his s/p colostomy revision 03/10 to bowel perforation. Patient had colostomy reversal at w/ Dr. Mcclain a few weeks prior. Patient has long vertical midline incision along w/. smaller open wound to the left of incision which has packing in it. Patient was instructed to change the packing daily however he reports him and his attempted and were not successful. he would like home health consult to assist with changes. Patient has not notified the surgeon as of yet. Onset (ago)
[2022-01-09 15:49] VITALS: BP 118/60; PULSE 88; RESP 18; TEMP 36.4; O2SAT 96
== END 2022-01-09 15:49 | disposition home or self-care (01) ==
PROVIDERS: Emergency Provider Student in an Organized Health Care Education/Training Program; PCP Internal Medicine Adolescent Medicine
DX: Z48.815 Encounter for surgical aftercare following surgery on the digestive system; Z79.899 Other long term (current) drug therapy
CPT/HCPCS: 82962; 99282

== ENCOUNTER 2022-01-18 08:13 | Emergency (ER) | payer MEDICARE, MEDICAID, SELFPAY ==
[2022-01-18 08:30] VITALS: BP 137/69; PULSE 70; O2SAT 100
[2022-01-18 08:45] VITALS: BP 137/69; PULSE 76; RESP 18; TEMP 36.6; O2SAT 97; BMI 27.1
--- NOTE | 2022-01-18 08:46 | HMH.EDGENADL ---
Discharge Plan Disposition Patient Disposition: Home, Self-Care Condition: Good Prescriptions Prescriptions: No Action Januvia 100 mg tablet 100 mg PO Label Comments: TAKE ONE TABLET BY MOUTH EVERY DAY metoprolol tartrate 25 mg tablet 25 mg PO Label Comments: TAKE ONE TABLET BY MOUTH TWICE DAILY hydralazine 25 mg tablet 25 mg PO Label Comments: TAKE ONE TABLET BY MOUTH EVERY DAY ropinirole 1 mg tablet 1 mg PO Label Comments: TAKE ONE TABLET BY MOUTH THREE TIMES DAILY clindamycin HCl 300 mg capsule 300 mg PO TID 7 Days Qty: 21 0RF tramadol 50 mg tablet 50 mg PO Label Comments: TAKE ONE TABLET BY MOUTH EVERY TWELVE HOURS NEEDED FOR PAIN MAY CAUSE DROWSINESS loperamide 2 mg capsule 2 mg PO Label Comments: TAKE ONE CAPSULE BY MOUTH EVERY 4 HOURS FOR 7 DAYS gabapentin 600 mg tablet 600 mg PO TID lisinopril 10 mg tablet 10 mg PO DAILY duloxetine 60 mg capsule,delayed release(DR/EC) 60 mg PO DAILY atorvastatin 20 mg tablet 20 mg PO DAILY diclofenac sodium [Voltaren Arthritis Pain] 1 % gel 4 g TOPICAL QID Rx Instructions: apply to single knee, ankle, foot; for foot includes sole/toes/top of foot amlodipine 10 mg tablet 10 mg PO DAILY trazodone 100 mg tablet 100 mg PO DAILY clopidogrel 75 mg tablet 75 mg PO DAILY donepezil 10 mg tablet 10 mg PO HS furosemide 20 mg tablet 20 mg PO DAILY multivitamin [Multiple Vitamins] Tablet 1 tab PO DAILY methocarbamol [Methocarbamol] 750 mg tablet 750 mg PO Q6 PRN (Reason: Muscle Spasm) Qty: 30 0RF sulfamethoxazole-trimethoprim [Bactrim DS] 800-160 mg Tablet 1 tab PO BID Qty: 20 0RF cephalexin 500 mg capsule 500 mg PO QID Qty: 40 0RF Referrals Follow up/Referrals: Saran San MD [Primary Care Provider] - See instructions Activity Restrictions/Add. Instructions Additional Instructions/Restrictions: [id number] acetaminophen for pain. Dr. San to see you at home in 2 days regarding suture removal. Clean wounds with soap and water daily and reapply bandages. Keep scheduled appointments at [facility]. Return to emergency room if increasing pain, fever, redness, worsening drainage, vomiting, or other symptoms of concern. Clinical Impressions Clinical Impression: Encounter for postoperative wound check Discharge ED Provider: Jb Mclean General Adult HPI General Chief complaint: Skin/Abscess/Foreign Body Stated complaint: Abd pain post op 01/03 colon Time Seen by Provider: 01/18/22 08:55 History of Present Illness HPI narrative: Patient complains of abdominal pain. States that he had a colostomy reversal 2 weeks ago [facility]. He says that this morning about 5 AM he started having increasing pain which she believes is from his karlie. He would like them checked. He says he is hoping to get his karlie out in 2 days when his primary care provider, Dr. San, visits him at home. He has 2 surgical wounds on his abdomen, he has a long midline incision which still has karlie in place and he has a hole to the left of that which she says is still draining. He denies fever. He states he is taking ibuprofen intermittently for pain which helps. He states the prescribed pain medications do not help him and he is hoping to get a shot. He drove himself to the emergency department. He states he also wants his blood sugar checked. Related Data Home Medications Medication Instructions Recorded Confirmed amlodipine 10 mg tablet 10 mg PO DAILY 12/21/20 04/01/21 atorvastatin 20 mg tablet 20 mg PO DAILY 12/21/20 04/01/21 clopidogrel 75 mg tablet 75 mg PO DAILY 12/21/20 04/01/21 diclofenac sodium 1 % topical gel 4 g topical QID 12/21/20 04/01/21 (Voltaren Arthritis Pain) donepezil 10 mg tablet 10 mg PO HS 12/21/20 04/01/21 duloxetine 60 mg capsul
[2022-01-18 09:16] LABS: POC Glucose,Bedside 77 (70-110)
[2022-01-18 09:48] VITALS: BP 144/79; PULSE 73; RESP 20; TEMP 36.6; O2SAT 97
== END 2022-01-18 09:51 | disposition home or self-care (01) ==
PROVIDERS: Emergency Provider Emergency Medicine; PCP Internal Medicine Adolescent Medicine
DX: R10.9 Unspecified abdominal pain (principal); Z48.89 Encounter for other specified surgical aftercare; Z79.899 Other long term (current) drug therapy
CPT/HCPCS: 82962; 99282

== ENCOUNTER → 2022-03-04 10:16 | Outpatient (CLI) | payer MEDICARE, SELFPAY ==
[2022-03-04 12:10] LABS: T4 (Thyroxine) 6.2 ug/dl (5.53-11.0)
[2022-03-04 12:12] LABS: Hemoglobin A1C 5.5 % (4.0-6.0)
[2022-03-04 12:23] LABS: Thyroid Stimulating Hormone 0.52 uIU/mL (0.465-4.68)
[2022-03-04 12:42] LABS: Vitamin B12 614 pg/mL (239-931)
[2022-03-07 15:06] LABS: Immunoglobulin A, Qn 586 mg/dL (61-437); Immunoglobulin G, Qn 2845 mg/dL (603-1613); Immunoglobulin M, Qn 489 mg/dL (20-172)
[2022-03-07 20:55] LABS: Vitamin B6 2.7 ug/L (3.4-65.2)
[2022-03-09 12:11] LABS: Hemoglobin 8.4 g/dL (14.1-18.0); Red Blood Count 3.34 M/mm3 (4.60-6.20); White Blood Count 11.1 K/mm3 (4.8-10.8)
[2022-03-09 12:12] LABS: Mean Corpuscular HGB Conc 29.8 g/dL (31.8-35.4); Mean Corpuscular Hemoglobin 25.1 pg (27.0-31.2); Platelet Count 611 K/mm3 (142-424); Potassium 4.5 mmoL/L (3.5-5.1); Red Cell Distribution Width 19.5 % (11.5-17.5); Sodium 141 mmol/L (136-145)
[2022-03-09 12:13] LABS: Anion Gap 13.5 mEq/L (5-15); Blood Urea Nitrogen 22 mg/dl (9-20); Carbon Dioxide 30 mmol/L (22.0-30.0); Chloride 102 mmol/L (98-107); Estimated Glomerular Filt Rate 36 ml/min (>60); GFR (African American) 43 ML/MIN (>60)
[2022-03-09 12:18] LABS: Alanine Aminotransferase 12 U/L (12-78); Albumin Level 3.7 g/dl (3.5-5.0); Albumin/Globulin Ratio 0.7 (1.1-1.8); Aspartate Amino Transferase 17 U/L (17-59); Bilirubin,Total 0.4 mg/dl (0.2-1.3); Globulin 5.3 g/dL (1.3-3.2); Glucose 103 mg/dl (74-100)
[2022-03-09 12:19] LABS: Alkaline Phosphatase 99 U/L (38-126)
[2022-03-09 12:22] LABS: Prealbumin 13
== END ==
PROVIDERS: Psychiatry & Neurology Neurology; PCP Internal Medicine Adolescent Medicine; Visit Provider Surgery
DX: R26.81 Unsteadiness on feet (principal); R79.9 Abnormal finding of blood chemistry, unspecified; R20.2 Paresthesia of skin
CPT/HCPCS: 36415; 80053; 82607; 82784; 83036; 84134; 84207; 84436; 84443; 85014; 85018; 85048; 85049; 86334

== ENCOUNTER → 2022-03-07 15:48 | Outpatient (CLI) | payer MEDICARE, SELFPAY | PROVIDERS: PCP Internal Medicine Adolescent Medicine; Visit Provider Psychiatry & Neurology Neurology | DX: R26.81 Unsteadiness on feet (principal); R29.898 Other symptoms and signs involving the musculoskeletal system ==

== ENCOUNTER → 2022-03-15 11:11 | Outpatient (CLI) | payer MEDICARE, SELFPAY ==
--- NOTE | 2022-03-15 11:15 | MR_ITS ---
FINAL REPORT CLINICAL HISTORY: LEG WEAKNESS...INSTABILITY. falling frequently. headache FINDINGS: Multi planar MR imaging was obtained through the brain without contrast. The midline structures appear intact. There is no evidence of Chiari malformation. On T2 and flair axial images the brain parenchyma is homogeneous. On diffusion-weighted images there is no evidence of restricted diffusion. The visualized paranasal sinuses demonstrate normal signal voids. The seventh and eighth nerve root complexes are intact. IMPRESSION: Essentially unremarkable nonenhanced brain MRI. Reviewed, Interpreted and Dictated by Cedric Briggs MD Transcribed by [employer] and [facility]
== END ==
PROVIDERS: PCP Internal Medicine Adolescent Medicine; Visit Provider Psychiatry & Neurology Neurology
DX: R26.81 Unsteadiness on feet (principal); R29.898 Other symptoms and signs involving the musculoskeletal system
CPT/HCPCS: 70551

== ENCOUNTER 2022-06-11 16:57 | Observation (INO) | payer MEDICARE, MEDICAID, SELFPAY ==
[2022-06-11] VITALS (10 sets, daily range): BP systolic 117–144; BP diastolic 53–78; PULSE 47–56; RESP 12–19; TEMP 36.5–36.8; O2SAT 93–100; BMI 27.1; BMI 25.9
--- NOTE | 2022-06-11 17:27 | HMH.EDGENADL ---
Discharge Plan Disposition Chief Complaint: Wound/Laceration Discharge ED Provider: Magda Almendarez General Adult HPI General Chief complaint: Wound/Laceration Stated complaint: foot pain Time Seen by Provider: 06/11/22 17:06 Mode of Arrival: EMS Source of Information: Patient and EMS Limitations: Physical Limitations Description of Symptoms (Recalled from ER Triage Doc. by RN): 66 M presents via EMS from home for c/o bilateral foot infection. EMS reports when they arrived to patient's home is was in total disarray and infested with bedbugs. Patient appeared unkept with socks that appeared to be melted to his feet. Upon assessment here, patient is infested with bed bugs and his socks are covered with serosanguineous fluid mixed with dried brown/black/yellow discharge from open wounds to his feet. Foul odor noted from these wounds. Patient reports he didn't have a ride so he just didn't come. History of Present Illness HPI narrative: This patient is a 66-year-old male with a history of diabetes, peripheral neuropathy, obesity, chronic foot wound status post amputation of multiple toes, and CKD presenting to the emergency department requesting evaluation of wounds on his feet. He is brought in by EMS. He states that he had seen podiatry in the past for his feet, but he stopped going. He also states that he has not been following regularly with a doctor. EMS noted that on scene, he was in disarray and his home is infested with bedbugs. They stated that he appeared unkept with socks that appear to be melted to his feet. Here, the patient was noted to be covered in bedbugs and his socks were drenched in serosanguineous fluid from his wounds on his feet. They were stuck to his feet. Patient denies any other concerns, such as fevers, chills, chest pain, shortness of breath, abdominal pain, nausea, vomiting, change in bowel movements, or other issues. He does note chronic right greater than left swelling to his legs, but no new changes. Related Data Home Medications Medication Instructions Recorded Confirmed amlodipine 10 mg tablet 10 mg PO DAILY 12/21/20 04/01/21 atorvastatin 20 mg tablet 20 mg PO DAILY 12/21/20 04/01/21 clopidogrel 75 mg tablet 75 mg PO DAILY 12/21/20 04/01/21 diclofenac sodium 1 % topical gel 4 g topical QID 12/21/20 04/01/21 (Voltaren Arthritis Pain) donepezil 10 mg tablet 10 mg PO HS 12/21/20 04/01/21 duloxetine 60 mg capsule,delayed 60 mg PO DAILY 12/21/20 04/01/21 release furosemide 20 mg tablet 20 mg PO DAILY 12/21/20 04/01/21 gabapentin 600 mg tablet 600 mg PO TID 12/21/20 04/01/21 lisinopril 10 mg tablet 10 mg PO DAILY 12/21/20 04/01/21 multivitamin (Multiple Vitamins 1 tab PO DAILY 12/21/20 04/01/21 tablet) trazodone 100 mg tablet 100 mg PO DAILY 12/21/20 04/01/21 hydralazine 25 mg tablet 25 mg PO 03/22/21 04/01/21 metoprolol tartrate 25 mg tablet 25 mg PO 03/22/21 04/01/21 ropinirole 1 mg tablet 1 mg PO 03/22/21 04/01/21 sitagliptin phosphate 100 mg 100 mg PO 03/22/21 04/01/21 tablet (Januvia) loperamide 2 mg capsule 2 mg PO 04/01/21 04/01/21 tramadol 50 mg tablet 50 mg PO 04/01/21 04/01/21 Previous Rx's Medication Instructions Recorded clindamycin HCl 300 mg capsule 300 mg PO TID DIABETIC FOOT ULCERS 03/25/21 7 days #21 caps methocarbamol 750 mg tablet 750 mg PO Q6 PRN Muscle Spasm #30 12/16/21 tabs cephalexin 500 mg capsule 500 mg PO QID #40 caps 12/29/21 sulfamethoxazole 800 1 tab PO BID #20 tabs 12/29/21 mg-trimethoprim 160 mg tablet (Bactrim DS) Allergies Allergy/AdvReac Type Severity Reaction Status Date / Time Iodinated Contrast Media Allergy Intermediate Confusion Verified 12/29/21 16:28 red dye Allergy Verified 12/29/21 16:28 [facility] Disclaimer: The information contained in this section may have been updated after the patient was seen, as this information can be updated by other users. Social History Smo
--- NOTE | 2022-06-11 17:28 | XR_ITS ---
PROCEDURE INFORMATION: Exam: XR Left Foot Exam date and time: 06/11/2022 5:58 PM Age: 66 years old Clinical indication: Swelling, leg or foot; Additional info: Swelling, wounds TECHNIQUE: Imaging protocol: Radiologic exam of the left foot. Views: 3 or more views. COMPARISON: No relevant prior studies available. FINDINGS: Bones/joints: Amputation of the left 2nd toe at the level of the proximal phalanx. Proximal phalangeal stump unremarkable. Soft tissues: Normal. IMPRESSION: No evidence of acute osseous injury.
--- NOTE | 2022-06-11 17:28 | XR_ITS ---
PROCEDURE INFORMATION: Exam: XR Right Foot Exam date and time: 06/11/2022 5:58 PM Age: 66 years old Clinical indication: Swelling, leg or foot; Additional info: Swelling, wounds TECHNIQUE: Imaging protocol: Radiologic exam of the right foot. Views: 3 or more views. COMPARISON: CR XR FOOT RT 2V 12/19/2021 9:01 AM FINDINGS: Bones/joints: Amputation of the 4th and 5th rays at the level of the metatarsal bones just distal to the tarsometatarsal articulation. Interim development of periosteal reaction base of the 1st metatarsal more subtle changes of periosteal reaction demonstrated in association with the 2nd and 3rd metatarsals. Findings suggestive of developing osteomyelitis . Recommend follow-up with magnetic resonance imaging without and with contrast. Soft tissues: Diffuse soft tissue swelling dorsal and plantar aspect of the mid and forefoot. Fragmentation and lysis at the level of the tarsometatarsal articulations. Findings compatible with Charcot joint. IMPRESSION: 1. Interim development of periosteal reaction base of the 1st metatarsal, 2nd and 3rd metatarsals. Findings suggestive of developing osteomyelitis . Recommend follow-up with magnetic resonance imaging without and with contrast. 2. Findings compatible with Charcot joint at the level of the tarsal metatarsal articulations.
[2022-06-11 17:40] LABS: Basophils % 0.2 % (0.1-2.0); Eosinophils # 0.4 K/mm3 (0.0-0.4); Eosinophils % 3.9 % (0.1-12.0); Hematocrit 25.8 % (42.0-52.0); Hemoglobin 7.7 g/dL (14.1-18.0); Lymphocytes # 0.9 K/mm3 (0.7-4.5); Lymphocytes % 8.8 % (10-50); Mean Corpuscular HGB Conc 29.8 g/dL (31.8-35.4); Mean Corpuscular Hemoglobin 21.9 pg (27.0-31.2); Mean Corpuscular Volume 73.4 fl (80-94); Monocytes # 0.6 K/mm3 (0.1-1.0); Monocytes % 5.5 % (1.7-9.3); Neutrophils # 8.1 K/mm3 (1.8-7.8); Neutrophils % 81.7 % (37.0-80.0); Platelet Count 482 K/mm3 (142-424); Red Blood Count 3.51 M/mm3 (4.60-6.20); Red Cell Distribution Width 21.9 % (11.5-17.5); White Blood Count 9.9 K/mm3 (4.8-10.8)
[2022-06-11 17:45] LABS: Alanine Aminotransferase 15 U/L (12-78); Albumin Level 3.4 g/dl (3.5-5.0); Albumin/Globulin Ratio 0.6 (1.1-1.8); Alkaline Phosphatase 101 U/L (38-126); Anion Gap 14.4 mEq/L (5-15); Aspartate Amino Transferase 25 U/L (17-59); Bilirubin,Total 0.3 mg/dl (0.2-1.3); Blood Urea Nitrogen 25 mg/dl (9-20); Calcium 8.3 mg/dl (8.4-10.2); Carbon Dioxide 28 mmol/L (22.0-30.0); Chloride 103 mmol/L (98-107); Creatinine Clearance Estimated 56 mL/min (50-200); Estimated Glomerular Filt Rate 41 ml/min (>60); GFR (African American) 49 ML/MIN (>60); Globulin 5.3 g/dL (1.3-3.2); Glucose 106 mg/dl (74-100); Lactic Acid 1.1 mmol/L (0.7-2.1); Potassium 4.4 mmoL/L (3.5-5.1); Sodium 141 mmol/L (136-145); Total Protein,Serum 8.7 g/dl (6.3-8.2)
[2022-06-11 17:50] LABS: C-Reactive Protein 85.9 mg/L (0-4)
[2022-06-11 18:28] LABS: Erythrocyte Sedimentation Rate > 140 mm/hr (0-20)
--- NOTE | 2022-06-11 18:45 | PC.NURSE ---
DR SLOAN SPEAKING WITH DR MAHER
--- NOTE | 2022-06-11 18:49 | PC.NURSE ---
SHANK SANDER NOTIFIED OF ADMISSION
[2022-06-11 19:11] LABS: Coronavirus 19, PCR Not Detected (NotDetected); Influenza A, PCR Not Detected (NotDetected); Influenza B, PCR Not Detected (NotDetected)
--- NOTE | 2022-06-11 19:59 | PC.NURSE ---
PT. ARRIVED TO FLOOR AT THIS TIME
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
[2022-06-11 21:39] LABS: POC Glucose,Bedside 97 (70-110)
[2022-06-12] VITALS (16 sets, daily range): BP systolic 104–143; BP diastolic 34–69; PULSE 46–71; RESP 18–20; TEMP 36.4–37.2; O2SAT 90–99; BMI 27.2
--- NOTE | 2022-06-12 04:49 | PC.WOUNDNOTE ---
Dressing placed on right foot: betadine soaked 4x4 dry 4x4 on top wrapped in kerlix
--- NOTE | 2022-06-12 04:50 | PC.WOUNDNOTE ---
dressing place on right heel: betadine soaked 4x4 dry 4x4 wrapped in kerlix heel floaters in place
--- NOTE | 2022-06-12 04:51 | PC.WOUNDNOTE ---
[employer] flower dressings placed on bilateral hips for pressure support
--- NOTE | 2022-06-12 04:52 | PC.WOUNDNOTE ---
Pt's bottom on admission pressure dressing placed for added protection on coccyx
--- NOTE | 2022-06-12 04:53 | PC.WOUNDNOTE ---
Scattered abrasions noted to right arm and right leg
--- NOTE | 2022-06-12 04:53 | PC.WOUNDNOTE ---
multiple scabbed areas noted to pt's scalp
--- NOTE | 2022-06-12 06:07 | PC.NURSE ---
HAS RESTED WELL SINCE ADMISSION. RECEIVED BATH UPON ARRIVAL DUE TO BED BUG INFESTATION. HAS NUMEROUS BUG BITE-SCABS ALL OVER HIS BODY. SEE PHOTOS OF SKIN CONDITIONS AND FOOT ULCERS. CONSULT TO CARE MANAGEMENT PENDING.
[2022-06-12 06:11] LABS: POC Glucose,Bedside 83 (70-110)
--- NOTE | 2022-06-12 07:44 | EXP.ACUTE.PN ---
Subjective *Date: 06/12/22 *Time: 13:20 Interval history: Patient denies any foot pain today. Appears chronically ill. Denies any shortness of breath, nausea, vomiting, fevers overnight. Nursing performing wound care on feet during exam. Medical Exam Vital signs and Labs for Last 24 Hours: Vital Signs Temp Pulse Pulse Resp BP BP Pulse Ox 06/12/22 07:32 97.8 F 63 18 118/54 L 90 L 06/12/22 04:00 97.6 F 58 L 18 116/57 L 96 06/12/22 00:00 97.6 F 58 L 18 128/56 L 93 L 06/11/22 20:00 100 06/11/22 19:59 97.7 F 50 L 18 144/68 H 100 06/11/22 19:45 98.3 F 54 L 14 137/78 06/11/22 19:30 16 134/59 L 98 06/11/22 19:00 49 L 12 128/64 98 06/11/22 18:01 14 124/56 L 06/11/22 17:30 56 L 12 117/53 L 97 06/11/22 17:15 50 L 12 100 06/11/22 17:10 47 L 12 100 06/11/22 16:57 98.3 F 50 L 19 129/59 L 93 L Intake and Output 06/11/22 06/11/22 06/12/22 15:59 23:59 07:59 Intake Total 1085 / 1085 Output Total 150 / 150 Balance 935 / 935 Intake: Intake, Oral Amount 360 / 360 Intake, Other Amount 125 / 125 Intake, Total IV Amount 600 / 600 Metronidaz/Sod Chl 500 mg In 100 / 100 100 ml @ 100 mls/hr IV Q8H [facility] Rx#:[id number] Vancomycin HCl 2,000 mg In 0.9 500 / 500 % Sodium Chloride 500 ml @ 250 mls/hr IV ONCE ONE Rx#:[id number] Output: Output, Urine Amount 150 / 150 Other: Number of Bowel Movements 1 Weight 86.664 kg 91.257 kg Patient Weight 06/12/22 23:59 Weight 91.257 kg Laboratory Results - last 24 hr 06/11/22 17:00: WBC 9.9, RBC 3.51 L, Hgb 7.7 L, Hct 25.8 L, MCV 73.4 L, MCH 21.9 L, MCHC 29.8 L, RDW 21.9 H, Plt Count 482 H, MPV 7.0 L, Neut % (Auto) 81.7 H, Lymph % (Auto) 8.8 L, [place] % (Auto) 5.5, Eos % (Auto) 3.9, Baso % (Auto) 0.2, Neut # (Auto) 8.1 H, Lymph # (Auto) 0.9, [place] # (Auto) 0.6, Eos # (Auto) 0.4, Baso # (Auto) 0.0, ESR > 140 H 06/11/22 17:00: Sodium 141, Potassium 4.4, Chloride 103, Carbon Dioxide 28, Anion Gap 14.4, BUN 25 H, Creatinine 1.70 H, Estimated Creat Clear 56, Estimated GFR 41 L, Est GFR ( Amer) 49 L, Glucose 106 H, Calcium 8.3 L, Total Bilirubin 0.3, AST 25, ALT 15, Alkaline Phosphatase 101, C-Reactive Protein 85.9 H, Total Protein 8.7 H, Albumin 3.4 L, Globulin 5.3 H, Albumin/Globulin Ratio 0.6 L 06/11/22 17:00: Lactate 1.1 06/11/22 18:30: SARS-CoV-2 (PCR) Not detected, Influenza A Untype (PCR) Not detected, Influenza Type B (PCR) Not detected 06/11/22 21:31: POC Glucose 97 06/12/22 05:46: POC Glucose 83 I & O for Labs for Last 24 Hours: Intake & Output 06/09/22 06/10/22 06/11/22 06/12/22 23:59 23:59 23:59 23:59 Intake Total 1085 / 1085 Output Total 150 / 150 Balance 935 / 935 Weight 86.664 kg 91.257 kg Constitutional: Present no acute distress, average body habitus, chronically ill appearing, disheveled and cooperative Head: Present atraumatic and normocephalic ENT: Present normal exam Comment:: Alopecia, dry flaky scalp on right side Neck: Present normal inspection Respiratory: Present normal respiratory effort; Absent rhonchi, wheezes or crackles Cardiac: Present Reg Rate and Rhythm GI: Present soft and normal bowel sounds; Absent distention or tenderness Comment:: Chronic stasis dermatitis bilateral lower legs, trace edema, amputation of second toe on left foot with debrided ulcer of left heel approximately 1-1/2 inches long by 1 inch wide. Right foot with open wound on dorsum of foot with clean base, fluctuant collection proximal to this. Mildly erythematous lateral portion with what appears to be a hole or fistula, scant drainage Skin: Present intact; Absent erythema Neuro: Present Grossly Intact, alert, awake, oriented x 3 and moves all extremities Comment:: Flat affect Assessment and Plan *Assessment and plan (1) Acute osteomyelitis of right foot: Status: Acute Category: Medical
[2022-06-12 08:05] LABS: Alanine Aminotransferase 10 U/L (12-78); Albumin Level 2.8 g/dl (3.5-5.0); Albumin/Globulin Ratio 0.6 (1.1-1.8); Alkaline Phosphatase 83 U/L (38-126); Anion Gap 12.2 mEq/L (5-15); Aspartate Amino Transferase 16 U/L (17-59); Basophils % 0.2 % (0.1-2.0); Bilirubin,Total 0.3 mg/dl (0.2-1.3); Blood Urea Nitrogen 20 mg/dl (9-20); Calcium 8.1 mg/dl (8.4-10.2); Carbon Dioxide 27 mmol/L (22.0-30.0); Chloride 106 mmol/L (98-107); Chol/HDL Ratio 6.4 (1-3.5); Cholesterol 109 mg/dl (140-200); Creatinine Clearance Estimated 60 mL/min (50-200); Eosinophils # 0.4 K/mm3 (0.0-0.4); Eosinophils % 7.2 % (0.1-12.0); Estimated Glomerular Filt Rate 44 ml/min (>60); GFR (African American) 53 ML/MIN (>60); Globulin 4.5 g/dL (1.3-3.2); Glucose 66 mg/dl (74-100); HDL Cholesterol 17 mg/dl (40-60); Hematocrit 23.1 % (42.0-52.0); Lymphocytes # 0.8 K/mm3 (0.7-4.5); Lymphocytes % 12.4 % (10-50); Magnesium 1.7 mg/dl (1.6-2.3); Mean Corpuscular HGB Conc 29.1 g/dL (31.8-35.4); Mean Corpuscular Hemoglobin 21.6 pg (27.0-31.2); Mean Corpuscular Volume 74.3 fl (80-94); Mean Platelet Volume 7.4 fl (7.4-10.4); Monocytes # 0.4 K/mm3 (0.1-1.0); Monocytes % 7.3 % (1.7-9.3); Neutrophils # 4.4 K/mm3 (1.8-7.8); Neutrophils % 72.8 % (37.0-80.0); Phosphorous 3.5 mg/dl (2.5-4.5); Platelet Count 430 K/mm3 (142-424); Potassium 4.2 mmoL/L (3.5-5.1); Red Cell Distribution Width 21.9 % (11.5-17.5); Sodium 141 mmol/L (136-145); Total Protein,Serum 7.3 g/dl (6.3-8.2); Triglycerides 66 mg/dl (30-150); VLDL Cholesterol 13 mg/dL (0-40); White Blood Count 6.1 K/mm3 (4.8-10.8)
[2022-06-12 08:07] LABS: Hemoglobin 6.7 g/dL (14.1-18.0)
[2022-06-12 08:11] LABS: Iron 23 ug/dL (49-181)
[2022-06-12 08:15] LABS: Direct LDL Cholesterol 62.81 mg/dL (100-129)
[2022-06-12 08:20] LABS: Total Iron Binding Capacity 205 ug/dL (261-462)
--- NOTE | 2022-06-12 08:25 | EXP.PHA.CONS ---
Pharmacy Consult Date: 06/12/22 Time: 08:25 Referring provider: DR. MAHER Reason for Consult:: VANCOMYCIN DOSING Allergies Allergy/AdvReac Type Severity Reaction Status Date / Time Iodinated Contrast Media Allergy Intermediate Confusion Verified 12/29/21 16:28 red dye Allergy Verified 12/29/21 16:28 Home Medications Medication Instructions Recorded Confirmed Type amlodipine 10 mg tablet 10 mg PO DAILY 12/21/20 04/01/21 History atorvastatin 20 mg tablet 20 mg PO DAILY 12/21/20 04/01/21 History clopidogrel 75 mg tablet 75 mg PO DAILY 12/21/20 04/01/21 History diclofenac sodium 1 % topical gel 4 g topical QID 12/21/20 04/01/21 History (Voltaren Arthritis Pain) donepezil 10 mg tablet 10 mg PO HS 12/21/20 04/01/21 History duloxetine 60 mg capsule,delayed 60 mg PO DAILY 12/21/20 04/01/21 History release furosemide 20 mg tablet 20 mg PO DAILY 12/21/20 04/01/21 History gabapentin 600 mg tablet 600 mg PO TID 12/21/20 04/01/21 History lisinopril 10 mg tablet 10 mg PO DAILY 12/21/20 04/01/21 History multivitamin (Multiple Vitamins 1 tab PO DAILY 12/21/20 04/01/21 History tablet) trazodone 100 mg tablet 100 mg PO DAILY 12/21/20 04/01/21 History hydralazine 25 mg tablet 25 mg PO 03/22/21 04/01/21 History metoprolol tartrate 25 mg tablet 25 mg PO 03/22/21 04/01/21 History ropinirole 1 mg tablet 1 mg PO 03/22/21 04/01/21 History sitagliptin phosphate 100 mg 100 mg PO 03/22/21 04/01/21 History tablet (Januvia) clindamycin HCl 300 mg capsule 300 mg PO TID DIABETIC FOOT ULCERS 03/25/21 04/01/21 Rx 7 days #21 caps loperamide 2 mg capsule 2 mg PO 04/01/21 04/01/21 History tramadol 50 mg tablet 50 mg PO 04/01/21 04/01/21 History methocarbamol 750 mg tablet 750 mg PO Q6 PRN Muscle Spasm #30 12/16/21 Rx tabs cephalexin 500 mg capsule 500 mg PO QID #40 caps 12/29/21 Rx sulfamethoxazole 800 1 tab PO BID #20 tabs 12/29/21 Rx mg-trimethoprim 160 mg tablet (Bactrim DS) New Prescriptions to Start Prescriptions: Height: 1.83 m Weight: 91.257 kg Laboratory Results:: Laboratory Results - last 24 hr 06/11/22 17:00: WBC 9.9, RBC 3.51 L, Hgb 7.7 L, Hct 25.8 L, MCV 73.4 L, MCH 21.9 L, MCHC 29.8 L, RDW 21.9 H, Plt Count 482 H, MPV 7.0 L, Neut % (Auto) 81.7 H, Lymph % (Auto) 8.8 L, [place] % (Auto) 5.5, Eos % (Auto) 3.9, Baso % (Auto) 0.2, Neut # (Auto) 8.1 H, Lymph # (Auto) 0.9, [place] # (Auto) 0.6, Eos # (Auto) 0.4, Baso # (Auto) 0.0, ESR > 140 H 06/11/22 17:00: Sodium 141, Potassium 4.4, Chloride 103, Carbon Dioxide 28, Anion Gap 14.4, BUN 25 H, Creatinine 1.70 H, Estimated Creat Clear 56, Estimated GFR 41 L, Est GFR ( Amer) 49 L, Glucose 106 H, Calcium 8.3 L, Total Bilirubin 0.3, AST 25, ALT 15, Alkaline Phosphatase 101, C-Reactive Protein 85.9 H, Total Protein 8.7 H, Albumin 3.4 L, Globulin 5.3 H, Albumin/Globulin Ratio 0.6 L 06/11/22 17:00: Lactate 1.1 06/11/22 18:30: SARS-CoV-2 (PCR) Not detected, Influenza A Untype (PCR) Not detected, Influenza Type B (PCR) Not detected 06/11/22 21:31: POC Glucose 97 06/12/22 05:46: POC Glucose 83 06/12/22 06:34: WBC 6.1 D, RBC 3.10 L, Hgb 6.7 L*, Hct 23.1 L, MCV 74.3 L, MCH 21.6 L, MCHC 29.1 L, RDW 21.9 H, Plt Count 430 H, MPV 7.4, Neut % (Auto) 72.8, Lymph % (Auto) 12.4, [place] % (Auto) 7.3, Eos % (Auto) 7.2, Baso % (Auto) 0.2, Neut # (Auto) 4.4, Lymph # (Auto) 0.8, [place] # (Auto) 0.4, Eos # (Auto) 0.4, Baso # (Auto) 0.0 06/12/22 06:34: Sodium 141, Potassium 4.2, Chloride 106, Carbon Dioxide 27, Anion Gap 12.2, BUN 20, Creatinine 1.60 H, Estimated Creat Clear 60, Estimated GFR 44 L, Est GFR ( Amer) 53 L, Glucose 66 L D, Calcium 8.1 L, Phosphorus 3.5, Magnesium 1.7, Total Bilirubin 0.3, AST 16 L D, ALT 10 L D, Alkaline Phosphatase 83, Total Protein 7.3, Albumin 2.8 L D, Globulin 4.5 H, Albumin/Globulin Ratio 0.6 L, Triglycerides 66, Cholesterol 109 L, LDL Cholesterol Direct 62.81 L, VLDL Cholesterol 13, HDL Cholesterol 17 L, Cholesterol/HDL Ratio 6.4 H 06/12/22 06:34: Iron 23 L, TIBC 20
[2022-06-12 09:29] LABS: Hemoglobin A1C 5.3 % (4.0-6.0)
[2022-06-12 13:02] LABS: Hematocrit 25.4 % (42.0-52.0); Hemoglobin 7.3 g/dL (14.1-18.0)
[2022-06-12 16:00] LABS: POC Glucose,Bedside 91 (70-110)
[2022-06-12 21:02] LABS: POC Glucose,Bedside 89 (70-110)
[2022-06-13] VITALS: BP 122/55; PULSE 79; RESP 18; TEMP 36.7; O2SAT 94
--- NOTE | 2022-06-13 03:08 | PC.NURSE ---
Pt. is aox 4, 20g in the L FA SL, up with assist times one, needs to have MRI and US lower ext, no changes noted.
[2022-06-13 04:00] VITALS: BP 143/52; PULSE 42; RESP 18; TEMP 36.7; O2SAT 94; BMI 26.9
--- NOTE | 2022-06-13 06:00 | US_ITS ---
FINAL REPORT CLINICAL HISTORY: DM chronic ulcer, OM, PVD, CAD, SMOKER FINDINGS: LOWER EXTREMITY SEGMENTAL PRESSURE MEASUREMENTS FINDINGS: Pressure indices are as follows: RIGHT LOWER EXTREMITY: Thigh: 1.05 Calf: 1.11 Ankle, posterior tibial artery: 1.03 Ankle, dorsalis pedis: 1.06 Toe: 0.73 MARK: 1.06 LEFT LOWER EXTREMITY: Thigh: 1.15 Calf: 1.13 Ankle, posterior tibial artery: 1.21 Ankle, dorsalis pedis: 1.12 Toe: 0.82 MARK: 1.21 IMPRESSION: Normal MARK Reviewed, Interpreted and Dictated by Williams Mcclendon MD Transcribed by Erlinda Johnson Authenticated and [facility]
[2022-06-13 06:13] LABS: POC Glucose,Bedside 78 (70-110)
[2022-06-13 06:41] LABS: Alanine Aminotransferase 10 U/L (12-78); Albumin Level 2.8 g/dl (3.5-5.0); Albumin/Globulin Ratio 0.6 (1.1-1.8); Alkaline Phosphatase 86 U/L (38-126); Anion Gap 15.8 mEq/L (5-15); Aspartate Amino Transferase 17 U/L (17-59); Bilirubin,Total 0.5 mg/dl (0.2-1.3); Blood Urea Nitrogen 18 mg/dl (9-20); Calcium 8.2 mg/dl (8.4-10.2); Carbon Dioxide 24 mmol/L (22.0-30.0); Chloride 103 mmol/L (98-107); Creatinine Clearance Estimated 64 mL/min (50-200); Estimated Glomerular Filt Rate 47 ml/min (>60); GFR (African American) 57 ML/MIN (>60); Globulin 4.6 g/dL (1.3-3.2); Glucose 71 mg/dl (74-100); Magnesium 1.7 mg/dl (1.6-2.3); Potassium 3.8 mmoL/L (3.5-5.1); Sodium 139 mmol/L (136-145); Total Protein,Serum 7.4 g/dl (6.3-8.2)
[2022-06-13 06:46] LABS: C-Reactive Protein 44.9 mg/L (0-4)
[2022-06-13 06:59] LABS: Basophils % 0.4 % (0.1-2.0); Eosinophils # 0.4 K/mm3 (0.0-0.4); Eosinophils % 6.8 % (0.1-12.0); Hematocrit 25.2 % (42.0-52.0); Hemoglobin 7.6 g/dL (14.1-18.0); Lymphocytes # 0.9 K/mm3 (0.7-4.5); Lymphocytes % 14.6 % (10-50); Mean Corpuscular HGB Conc 30.2 g/dL (31.8-35.4); Mean Corpuscular Hemoglobin 22.8 pg (27.0-31.2); Mean Corpuscular Volume 75.2 fl (80-94); Monocytes # 0.4 K/mm3 (0.1-1.0); Monocytes % 6.9 % (1.7-9.3); Neutrophils # 4.6 K/mm3 (1.8-7.8); Neutrophils % 71.2 % (37.0-80.0); Platelet Count 420 K/mm3 (142-424); Red Blood Count 3.35 M/mm3 (4.60-6.20); Red Cell Distribution Width 22.3 % (11.5-17.5); White Blood Count 6.4 K/mm3 (4.8-10.8)
[2022-06-13 07:39] LABS: Erythrocyte Sedimentation Rate > 140 mm/hr (0-20)
--- NOTE | 2022-06-13 07:44 | EXP.ACUTE.PN ---
Subjective *Date: 06/13/22 *Time: 07:44 Medical Exam Vital signs and Labs for Last 24 Hours: Vital Signs Temp Pulse Pulse Resp BP BP Pulse Ox 06/13/22 04:00 98.0 F 42 L 18 143/52 H 94 L 06/13/22 00:00 98.0 F 79 18 122/55 L 94 L 06/12/22 20:00 98 06/12/22 20:00 98.4 F 46 L 18 127/61 94 L 06/12/22 15:09 97.8 F 55 L 18 143/58 H 98 06/12/22 13:00 98.1 F 63 18 122/64 98 06/12/22 12:00 98.6 F 55 L 18 124/62 98 06/12/22 11:00 98.6 F 54 L 18 125/60 98 06/12/22 10:45 98.8 F 59 L 18 128/50 L 94 L 06/12/22 11:54 97.8 F 71 18 115/52 L 98 06/12/22 10:30 98.8 F 53 L 18 127/50 L 93 L 06/12/22 10:15 98.8 F 55 L 19 129/47 L 92 L 06/12/22 10:10 98.7 F 55 L 19 116/69 94 L 06/12/22 10:05 98.7 F 63 19 124/54 L 99 06/12/22 10:00 99.0 F 63 20 129/45 L 96 06/12/22 09:55 99.0 F 59 L 20 104/34 L 90 L Intake and Output 06/12/22 06/12/22 06/13/22 15:59 23:59 07:59 Intake Total 240 / 1725 400 / 1725 350 / 350 Output Total 0 / 350 200 / 350 Balance 240 / 1375 200 / 1375 350 / 350 Intake: Intake, Oral Amount 240 / 600 Intake, Total IV Amount 350 / 350 Metronidaz/Sod Chl 500 mg In 100 / 100 100 ml @ 100 mls/hr IV Q8H [facility] Rx#:[id number] Vancomycin/Water For Inj (Peg) 250 / 250 1.5 gm In 300 ml @ 150 mls/hr IV Q18H [facility] Rx#:[id number] Infusion Intake 400 / 400 Metronidaz/Sod Chl 500 mg In 100 / 100 100 ml @ 100 mls/hr IV Q8H [facility] Rx#:[id number] Vancomycin/Water For Inj (Peg) 300 / 300 1.5 gm In 300 ml @ 150 mls/hr IV Q18H [facility] Rx#:[id number] Intake (Blood Product) Amt 0 / 0 Red Blood Cells Unit 0 / 0 [id number] Output: Output, Urine Amount 0 / 350 200 / 350 Other: Number of Unmeasured Voids 1 1 Weight 91.257 kg 90.322 kg Patient Weight 06/13/22 23:59 Weight 90.322 kg Laboratory Results - last 24 hr 06/11/22 17:00: Hemoglobin A1c 5.3 06/12/22 06:34: WBC 6.1 D, RBC 3.10 L, Hgb 6.7 L*, Hct 23.1 L, MCV 74.3 L, MCH 21.6 L, MCHC 29.1 L, RDW 21.9 H, Plt Count 430 H, MPV 7.4, Neut % (Auto) 72.8, Lymph % (Auto) 12.4, [place] % (Auto) 7.3, Eos % (Auto) 7.2, Baso % (Auto) 0.2, Neut # (Auto) 4.4, Lymph # (Auto) 0.8, [place] # (Auto) 0.4, Eos # (Auto) 0.4, Baso # (Auto) 0.0 06/12/22 06:34: Sodium 141, Potassium 4.2, Chloride 106, Carbon Dioxide 27, Anion Gap 12.2, BUN 20, Creatinine 1.60 H, Estimated Creat Clear 60, Estimated GFR 44 L, Est GFR ( Amer) 53 L, Glucose 66 L D, Calcium 8.1 L, Phosphorus 3.5, Magnesium 1.7, Total Bilirubin 0.3, AST 16 L D, ALT 10 L D, Alkaline Phosphatase 83, Total Protein 7.3, Albumin 2.8 L D, Globulin 4.5 H, Albumin/Globulin Ratio 0.6 L, Triglycerides 66, Cholesterol 109 L, LDL Cholesterol Direct 62.81 L, VLDL Cholesterol 13, HDL Cholesterol 17 L, Cholesterol/HDL Ratio 6.4 H 06/12/22 06:34: Iron 23 L, TIBC 205 L, Iron Saturation 11.17553 L 06/12/22 06:34: Blood Type Confirm O Positive 06/12/22 08:30: Blood Type O Positive, Antibody Screen Negative, Crossmatch (AHG) See Detail 06/12/22 12:58: Hgb 7.3 L, Hct 25.4 L 06/12/22 15:51: POC Glucose 91 06/12/22 20:47: POC Glucose 89 06/13/22 06:04: POC Glucose 78 06/13/22 06:09: WBC 6.4, RBC 3.35 L, Hgb 7.6 L, Hct 25.2 L, MCV 75.2 L, MCH 22.8 L, MCHC 30.2 L, RDW 22.3 H, Plt Count 420, MPV 7.0 L, Neut % (Auto) 71.2, Lymph % (Auto) 14.6, [place] % (Auto) 6.9, Eos % (Auto) 6.8, Baso % (Auto) 0.4, Neut # (Auto) 4.6, Lymph # (Auto) 0.9, [place] # (Auto) 0.4, Eos # (Auto) 0.4, Baso # (Auto) 0.0, ESR > 140 H 06/13/22 06:09: Sodium 139, Potassium 3.8, Chloride 103, Carbon Dioxide 24, Anion Gap 15.8 H, BUN 18, Creatinine 1.50 H, Estimated Creat Clear 64, Estimated GFR 47 L, Est GFR ( Amer) 57 L, Glucose 71 L, Calcium 8.2 L, Magnesium 1.7, Total Bilirubin 0.5, AST 17, ALT 10 L, Alkaline Phosphatase 86, C-Reactive Protein 44.9 H D, Total Protein 7.4, Albumin 2.8 L,
[2022-06-13 07:48] VITALS: BP 147/62; PULSE 49; RESP 18; TEMP 36.8; O2SAT 100
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
--- NOTE | 2022-06-13 08:38 | PC.NURSE ---
SRNA Note: pt walked to and from bathroom twice this morning. Pt cannot walk in hallway d/t foot dressings and pain. Parmjit Maddox, SRNA
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
--- NOTE | 2022-06-13 10:36 | SW/DCPLANNER ---
Addendum entered by Wendy Marie 06/13/22 14:24: [facility] can NOT accept this patient. I have called and updated patient: he is agreeable to do dressing changes at home until he can return to Outpatient Wound Care on 06/16/22 at 11:30AM. I have arranged [facility] for this patient for his appointment. Patient is aware of POD appointment on 06/20/22. Addendum entered by Wendy Marie 06/13/22 13:49: [facility] has been arranged for this patient. I have updated patient that [facility] is not able to accept patient at this time. Patient information has been faxed to [facility]. Original Note: PT/OT evaluated patient and recommended home health services for therapy and wound care. Patient information/order will be faxed to [facility] today. I will also attempt to set patient up with [facility] once medically stable for discharge. Patient will discharge home today.
--- NOTE | 2022-06-13 10:44 | HMH.PTEV ---
Physical Therapy Evaluation Rehab PT IP Evaluation Start: 06/12/22 07:44 Freq: ONCE Status: Active Protocol: Document 06/13/22 10:00 PHORAISHA (Rec: 06/13/22 10:44 PHORNE [id number]) Subjective/History History History 66 yowm adm to [facility] with multiple wounds on B feet, hips, arms and scalp. He has PMH of DM-II, CKD. He reports he lives with his , who is currently in a SNF due to poor health, and he is independent with all mobility. He reports he performs all cookng, cleaning, etc at [facility] independently. Subjective Subjective Pt reports no c/o this am, agrees to mobility assessment. Wound Care Consult was performed by DPSherrill this am with all appropriate orders and recs already given to nsg. Rehab PT IP Eval Objective Appearance Patient Behavior Appropriate Patient Orientation Person,Place,Time Difficulty following instructions none Speech Pattern Clear Ambulation Patient Able to Ambulate Yes Ambulation Observation IP General Gait Pattern Observation No Deviations/Normal Ambulation Distance (feet) 50 Ambulation Assistive Device None Ambulation Ability Supervision/Stand by Balance Ability to Arise Able, uses arms to help Sitting Balance Steady, safe Standing Balance Steady, wide stance Dynamic Sitting Balance Ability Good Dynamic Standing Balance Ability Good Transfers Bed Transfer Ability Supervision/Stand by Chair Transfer Ability Supervision/Stand by Sit to Stand Bed Transfer Ability Supervision/Stand by Sit to Stand Chair Transfer Ability Supervision/Stand by ROM All Extremities PT ROM Status WFL MMT All Extremities PT MMT WFL Rehab PT IP prob,goals,plan Problems Date of Evaluation: 06/13/22 Discharge Plan PT Discharge Plan Pt is currently at baseline for all mobility and is appropriate to return home once medically stable. Recommend Home Health Therapy upon d/c as appropriate. G -code Required No Eval Complexity Eval Charge Codes 38151 - Moderate Complexity PHYSICIAN CERTIF
[2022-06-13 12:00] VITALS: BP 136/74; PULSE 51; RESP 20; TEMP 36.6; O2SAT 97
[2022-06-13 12:03] LABS: POC Glucose,Bedside 114 (70-110)
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
--- NOTE | 2022-06-13 13:38 | P.CONPHA_ITS ---
Pharmacy Intervention Comments: DISCHARGE MEDICATION COUNSELING PROVIDED TO PATIENT. DISCUSSED THE FOLLOWING CHANGES. 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 HEDIS REGISTERED NURSE RN COUNSELED TO LOOK AT HYDRALAZINE BOTTLE TO FIGURE OUT CORRECT PILL) -START THE FOLLOWING: -DAKINS (SKIN CLEANSER, APPLY DAILY) -DOXYCYLINE (ANTIBIOTIC, TWICE DAILY, TAKE WITH FULL GLASS OF WATER, REMAIN UPRIGHT FOR AT LEAST 30 MINUTES, BEST WITHOUT FOOD BUT CAN IF UPSET STOMACH OCCURS, N/V/D POSSIBLE) -FERROUS SULFATE (SUPPLEMENT, DAILY, MAY CAUSE NAUSEA, TAKE WITH FOOD, CONSTIPATION POSSIBLE, MAY DARKEN STOOLS) -SANTYL (SKIN PROTECTANT, APPLY DAILY) PATIENT VERBALIZED NO QUESTIONS AT THIS TIME.
--- NOTE | 2022-06-14 12:01 | CARE MANAGER ---
Contacted patient and states he is doing fine. He has his medications and is aware of follow up appointments. Denies questions or concerns. YVONNE Cage
== END 2022-06-13 13:21 | disposition home or self-care (01) | DRG 637 ==
LOC: ER 17:17 → 2ND 19:52
PROVIDERS: Nurse Practitioner; Admitting Provider Internal Medicine Adolescent Medicine; Emergency Provider Emergency Medicine; PCP Internal Medicine Adolescent Medicine; Visit Provider Internal Medicine Adolescent Medicine
DX: E11.69 Type 2 diabetes mellitus with other specified complication (principal); L89.623 Pressure ulcer of left heel, stage 3; M86.171 Other acute osteomyelitis, right ankle and foot; L03.115 Cellulitis of right lower limb; E11.42 Type 2 diabetes mellitus with diabetic polyneuropathy; N18.30 Chronic kidney disease, stage 3 unspecified; E11.22 Type 2 diabetes mellitus with diabetic chronic kidney disease; I12.9 Hypertensive chronic kidney disease with stage 1 through stage 4 chronic kidney disease, or unspecified chronic kidney disease; E78.2 Mixed hyperlipidemia; D50.9 Iron deficiency anemia, unspecified; D63.1 Anemia in chronic kidney disease; Z87.891 Personal history of nicotine dependence; Z89.421 Acquired absence of other right toe(s); E11.621 Type 2 diabetes mellitus with foot ulcer; L97.519 Non-pressure chronic ulcer of other part of right foot with unspecified severity; S30.860A Insect bite (nonvenomous) of lower back and pelvis, initial encounter; Z79.4 Long term (current) use of insulin; Z79.899 Other long term (current) drug therapy; E11.59 Type 2 diabetes mellitus with other circulatory complications; Z20.822 Contact with and (suspected) exposure to COVID-19
CPT/HCPCS: G0378; 36415; 73630; 80053; 80061; 82962; 83036; 83540; 83550; 83605; 83735; 84100; 85014; 85018; 85025; 85651; 86140; 86850; 87040; 87070; 87077; 87186; 87205; 93306; 93923; 97162; 97165; 99285; C9803; J1756; J3370; P9016; U0003; U0005

== ENCOUNTER 2022-06-24 16:00 | Outpatient (RCR) | payer MEDICARE, MEDICAID, SELFPAY ==
--- NOTE | 2022-06-16 11:50 | HMH.PTOPWND ---
Rehab Outpt Wound Evaluation Rehab OP Wound Evaluation Start: 06/16/22 11:17 Freq: Status: Active Protocol: Document 06/16/22 11:40 LIZZY (Rec: 06/16/22 11:49 PHORAISHA [id number]) E-signed By Bassam Vargas, PT Subjective/History History History This is the initial PT eval for Cordell Boothe 66 yowm who presents with B foot wounds present for several mos. He reports no c/o pain at rest or tenderness to palpation due to diabetic neuropathy in both feet. He was recently admit to the hospital for infection of his foot wounds. He has multiple toes on B feet amputated previously and long hx of poor diabetes control. Subjective Subjective Currently no c/o pain or tenderness. 1+ pitting edema in B lower legs and feet. Wound Eval Wound Left Medial Heel Wound Type Diabetic Foot Ulcer Is This a Chronic Wound Yes Wound Length (cm) 2.9 Wound Width (cm) 2.0 Wound Depth (cm) 0.3 Wound Bed Appearance Dusky Red,Yellow Percentage Granulated (%) 10 Percentage of Slough (%) 90 Wound Margins Description Well Defined Surrounding Tissue Appearance [place],Bright Red,Indurated Edema Type Pitting Edema Degree 1+ Query Text:1+ Trace, Barely Detectable, Rebound 15-30 seconds 2+ Moderate, Slight Indentation, Rebound 10-20 seconds 3+ Deep, Deeper Indentation, Rebound > 30 seconds 4+ Very Deep, Rebound > 60 seconds Drainage Description Purulent Drainage Amount Small Wound Topical Solution/Irrigant Saline Irrigant Primary Dressing Silver Dressing Comment opticell Ag Wound Secondary Dressing Type Unna Boot Comment 2 layer zinc wrap Wound Debridement Method Sharps,Gauze,Mechanical Wound Debridement Amount of Tissue Minimal Removed Dressing Change Patient Tolerance Tolerated Well Right Dorsal Foot Wound Type Diabetic Foot Ulcer Is This a Chronic Wound Yes Wound Length (cm) 5.0 Wound Width (cm) 3.5 Wound Depth (cm) 0.2 Wound Bed Appearance [place]usky Red,Yellow Percentage Granulated (%) 50 Percentage of Slough (%) 50 Wound Nini
== END 2022-06-24 16:05 | disposition home or self-care (01) ==
LOC: PT 16:00
PROVIDERS: PCP Internal Medicine Adolescent Medicine; Visit Provider Internal Medicine Adolescent Medicine
DX: L97.519 Non-pressure chronic ulcer of other part of right foot with unspecified severity (principal); M86.171 Other acute osteomyelitis, right ankle and foot; L97.529 Non-pressure chronic ulcer of other part of left foot with unspecified severity; M86.172 Other acute osteomyelitis, left ankle and foot
CPT/HCPCS: 29580; 97162; 97597

== ENCOUNTER → 2022-06-27 10:59 | Outpatient (CLI) | payer MEDICARE, MEDICAID, SELFPAY ==
--- NOTE | 2022-06-27 10:59 | MR_ITS ---
FINAL REPORT CLINICAL HISTORY: foot pain. diabetic foot ulcer. COMPARISON: Plain radiographs from June 11, 2022 FINDINGS: Multiplanar MR imaging of the right foot was performed with and without contrast. There has been amputation at the level of the proximal 4th and 5th metatarsals. There are severe degenerative changes with disorganization of the midfoot. There are erosions of the proximal 1st, 2nd, and 3rd metatarsals and the cuneiforms. There is bone marrow edema throughout the midfoot. There is decreased T1 signal throughout the cuneiforms, lateral cuboid, proximal 1st, 2nd and 3rd metatarsals and the 4th and 5th metatarsal stumps. Osteomyelitis in any of these regions cannot be excluded. There is widespread soft tissue edema or cellulitis of the midfoot and forefoot. There is contrast enhancement throughout the bones of the midfoot and soft tissues. IMPRESSION: Findings consistent with neuropathic osteoarthropathy. Reviewed, Interpreted and Dictated by Fernie Nettles III, MD Transcribed by Foreign [place] Authenticated and [facility]
== END ==
PROVIDERS: PCP Internal Medicine Adolescent Medicine; Visit Provider Podiatrist
DX: E11.621 Type 2 diabetes mellitus with foot ulcer (principal); L97.519 Non-pressure chronic ulcer of other part of right foot with unspecified severity; M86.171 Other acute osteomyelitis, right ankle and foot
CPT/HCPCS: 73720; A9576

== ENCOUNTER 2022-07-25 11:25 | Emergency (ER) | payer MEDICARE, MEDICAID, SELFPAY ==
[2022-07-25 11:27] VITALS: BP 146/74; PULSE 52; RESP 16; TEMP 36.7; O2SAT 100; BMI 27.1
--- NOTE | 2022-07-25 11:57 | XR_ITS ---
FINAL REPORT CLINICAL HISTORY: right hand distal third finger injury. r/o fractur COMPARISON: None FINDINGS: RIGHT HAND Three views demonstrate no acute fracture or dislocation. The visualized joint spaces are normally aligned. There is subcutaneous emphysema distal to 3rd distal phalanx. IMPRESSION: Subcutaneous emphysema 3rd distal phalanx. No acute bony abnormality. Reviewed, Interpreted and Dictated by Cedric Briggs MD Transcribed by Rosi Hernandez Authenticated and [facility]
--- NOTE | 2022-07-25 11:59 | HMH.EDGENADL ---
Discharge Plan Disposition Patient Disposition: Home, Self-Care Condition: Good Prescriptions Prescriptions: New cephalexin 500 mg capsule 500 mg PO BID 7 Days Qty: 14 0RF No Action Januvia 100 mg tablet 100 mg PO DAILY Label Comments: TAKE ONE TABLET BY MOUTH EVERY DAY metoprolol tartrate 25 mg tablet 25 mg PO BID Label Comments: TAKE ONE TABLET BY MOUTH TWICE DAILY gabapentin 600 mg tablet 600 mg PO TID lisinopril 10 mg tablet 10 mg PO DAILY duloxetine 60 mg capsule,delayed release(DR/EC) 60 mg PO DAILY amlodipine 10 mg tablet 10 mg PO DAILY clopidogrel 75 mg tablet 75 mg PO DAILY donepezil 10 mg tablet 10 mg PO HS furosemide 20 mg tablet 20 mg PO DAILY multivitamin [Multiple Vitamins] Tablet 1 tab PO DAILY insulin glargine 100 unit/mL (3 mL) insulin pen 14 unit SQ HS Label Comments: INJECT 14 UNITS SUBCUTANEOUSLY ONCE DAILY AT night omeprazole 20 mg capsule,delayed release(DR/EC) 20 mg PO DAILY Label Comments: TAKE ONE CAPSULE BY MOUTH EVERY DAY trazodone 50 mg tablet 50 mg PO HS Label Comments: TAKE ONE TABLET BY MOUTH EVERY DAY AT BEDTIME Santyl 250 unit/gram Ointment 1 applic topical DAILY 10 Days Qty: 30 0RF Dakin's Solution 0.25 % Solution 1 applic topical DAILY 30 Days Qty: 1 0RF doxycycline hyclate 100 mg capsule 100 mg PO BID 10 Days Qty: 20 0RF ferrous sulfate 324 mg (65 mg iron) tablet,delayed release (DR/EC) 324 mg PO DAILY 30 Days Qty: 30 0RF Referrals Follow up/Referrals: Provider,Referral, [Referring] - See instructions Clinical Impressions Clinical Impression: Cellulitis of finger of right hand Discharge ED Provider: Sriram Howell General Adult HPI General Chief complaint: Extremity Injury, Upper Stated complaint: hand pain Time Seen by Provider: 07/25/22 11:44 Mode of Arrival: EMS Limitations: No Limitations Description of Symptoms (Recalled from ER Triage Doc. by RN): pt to the ED with middle finger pain on his left hand. pt denies any injuries and has full ROM History of Present Illness HPI narrative: This is a 67-year-old male with history of hypertension, hyperlipidemia, diabetes, CKD presenting with right middle finger pain. Patient states he may have sustained a small trauma, but does not remember. No fevers or chills, but has had redness and tenderness. This has been going on for approximately 2 days. Moderate in intensity, radiates up his arm. No other concerning history. Related Data Home Medications Medication Instructions Recorded Confirmed amlodipine 10 mg tablet 10 mg PO DAILY BLOOD PRESSURE 12/21/20 06/29/22 clopidogrel 75 mg tablet 75 mg PO DAILY Blood thinner 12/21/20 06/29/22 donepezil 10 mg tablet 10 mg PO HS MEMORY 12/21/20 06/29/22 duloxetine 60 mg capsule,delayed 60 mg PO DAILY Depression 12/21/20 06/29/22 release furosemide 20 mg tablet 20 mg PO DAILY Edema 12/21/20 06/29/22 gabapentin 600 mg tablet 600 mg PO TID NEUROPATHIC PAIN 12/21/20 06/29/22 lisinopril 10 mg tablet 10 mg PO DAILY BLOOD PRESSURE 12/21/20 06/29/22 multivitamin (Multiple Vitamins 1 tab PO DAILY Supplement 12/21/20 06/29/22 tablet) metoprolol tartrate 25 mg tablet 25 mg PO BID HEART RATE/BLOOD 03/22/21 06/29/22 PRESSURE sitagliptin phosphate 100 mg 100 mg PO DAILY Diabetes 03/22/21 06/29/22 tablet (Januvia) insulin glargine 100 unit/mL (3 14 unit SQ HS Diabetes 06/12/22 06/29/22 mL) subcutaneous pen omeprazole 20 mg capsule,delayed 20 mg PO DAILY GERD 06/12/22 06/29/22 release trazodone 50 mg tablet 50 mg PO HS SLEEP/MOOD 06/12/22 06/29/22 Previous Rx's Medication Instructions Recorded collagenase clostridium histo. 250 1 applic topical DAILY 10 days #30 06/13/22 unit/gram topical ointment (Santyl) grams doxycycline hyclate 100 mg capsule 100 mg PO BID 10 days #20 caps 06/13/22 ferrous sulfate 324 mg (65 mg
[2022-07-25 12:01] VITALS: BP 126/62; PULSE 68; O2SAT 100
--- NOTE | 2022-07-25 13:35 | SW/DCPLANNER ---
I have arranged [facility] for this patient.
[2022-07-25 13:57] VITALS: BP 134/67; PULSE 79; RESP 18; TEMP 36.8; O2SAT 97
== END 2022-07-25 13:59 | disposition home or self-care (01) ==
PROVIDERS: Emergency Provider Emergency Medicine; PCP Internal Medicine Adolescent Medicine
DX: M79.645 Pain in left finger(s) (principal); E11.22 Type 2 diabetes mellitus with diabetic chronic kidney disease; I12.9 Hypertensive chronic kidney disease with stage 1 through stage 4 chronic kidney disease, or unspecified chronic kidney disease; N18.30 Chronic kidney disease, stage 3 unspecified; E78.5 Hyperlipidemia, unspecified; S60.453A Superficial foreign body of left middle finger, initial encounter; W45.8XXA Other foreign body or object entering through skin, initial encounter
CPT/HCPCS: 73130; 99283; 99284

== ENCOUNTER 2023-02-08 12:48 | Outpatient (CLI) | payer MEDICARE, MEDICAID, SELFPAY ==
--- NOTE | 2023-02-08 13:14 | ECG_ITS ---
APPROVED REPORT Exam: Resting ECG HR:45 bpm ECG Measurements Heart Rate 45 AXES VA 328 P 56 QRSd 108 QRS 21 QT 447 T -16 QTc 401 Conclusion SINUS BRADYCARDIA WITH FIRST DEGREE AV BLOCK PROBABLE INFERIOR MYOCARDIAL INFARCTION , OF INDETERMINATE AGE [35 ms Q WAVE IN II/aVF] ABNORMAL ECG UNCONFIRMED REPORT Electronically signed by : Saran San MD 02/09/2023 20:33:12
== END 2023-02-08 23:59 ==
PROVIDERS: PCP Internal Medicine Adolescent Medicine; Visit Provider Internal Medicine Adolescent Medicine
DX: I73.9 Peripheral vascular disease, unspecified (principal)
CPT/HCPCS: 93005

== ENCOUNTER 2023-03-17 08:38 | Emergency (ER) | payer MEDICARE, SELFPAY ==
[2023-03-17 08:50] VITALS: BP 143/79; PULSE 52; RESP 18; TEMP 36.6; O2SAT 96; BMI 36.9
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
--- NOTE | 2023-03-17 09:06 | XR_ITS ---
FINAL REPORT CLINICAL HISTORY: pain FINDINGS: Left knee Four views were obtained. There is no acute fracture or dislocation. Mild degenerative changes are present. There is vascular calcification. IMPRESSION: Mild degenerative changes. Reviewed, Interpreted and Dictated by Fernie Nettles III, MD Transcribed by Verena Menon Authenticated and [facility]
--- NOTE | 2023-03-17 09:06 | XR_ITS ---
FINAL REPORT CLINICAL HISTORY: pain FINDINGS: Left foot Three views were obtained. There is no acute fracture or dislocation. There are mild degenerative changes. There is amputation of the 2nd digit at the level of the 2nd proximal phalanx. IMPRESSION: Mild degenerative changes. Reviewed, Interpreted and Dictated by Fernie Nettles III, MD Transcribed by Verena Mneon Authenticated and [facility]
--- NOTE | 2023-03-17 09:06 | XR_ITS ---
FINAL REPORT CLINICAL HISTORY: pain FINDINGS: Left tibia fibula Two views were obtained. There is no acute fracture or dislocation. There are mild degenerative changes of the knee and ankle. No soft tissue abnormality is identified. IMPRESSION: Mild degenerative changes. Reviewed, Interpreted and Dictated by Fernie Nettles III, MD Transcribed by Verena Menon Authenticated and [facility]
--- NOTE | 2023-03-17 09:06 | XR_ITS ---
FINAL REPORT CLINICAL HISTORY: pain FINDINGS: Left ankle Three views were obtained. There is no acute fracture or dislocation. Mild degenerative changes are present. There is small calcification adjacent to the medial malleolus. Calcaneal spurs are identified. IMPRESSION: Mild degenerative changes. Reviewed, Interpreted and Dictated by Fernie Nettles III, MD Transcribed by Verena Menon Authenticated and [facility]
--- NOTE | 2023-03-17 09:09 | PC.NURSE ---
Called RAD about orders
[2023-03-17 10:58] VITALS: BP 143/79; PULSE 52; RESP 18; TEMP 36.6; O2SAT 96
== END 2023-03-17 10:58 | disposition home or self-care (01) ==
PROVIDERS: Emergency Provider Physician Assistant; PCP Internal Medicine Adolescent Medicine
DX: M25.562 Pain in left knee (principal); S80.02XA Contusion of left knee, initial encounter; V00.838A Other accident with motorized mobility scooter, initial encounter; E11.9 Type 2 diabetes mellitus without complications; E78.5 Hyperlipidemia, unspecified; I10 Essential (primary) hypertension; Z79.4 Long term (current) use of insulin; Z79.84 Long term (current) use of oral hypoglycemic drugs
CPT/HCPCS: 73562; 73590; 73610; 73630; 99212; 99214; G0463

== ENCOUNTER 2023-03-29 10:52 | Emergency (ER) | payer MEDICARE, MEDICAID, SELFPAY ==
[2023-03-29 10:53] VITALS: BP 137/74; PULSE 49; RESP 15; TEMP 36.7; O2SAT 97; BMI 38.2
--- NOTE | 2023-03-29 11:05 | PC.NURSE ---
call made to pts per pts request to update her about pt being seen in ED
--- NOTE | 2023-03-29 11:08 | XR_ITS ---
FINAL REPORT CLINICAL HISTORY: anterior wound, eval for osteo FINDINGS: There is no acute fracture or dislocation. There are mild hypertrophic changes at the ankle. There is mild soft tissue edema about the ankle. IMPRESSION: No acute fracture Reviewed, Interpreted and Dictated by Cedric Briggs MD Transcribed by Erlinda Johnson Authenticated and [facility]
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
[2023-03-29 11:32] LABS: Basophils % 0.3 % (0.1-2.0); Eosinophils # 0.5 K/mm3 (0.0-0.4); Eosinophils % 5.5 % (0.1-12.0); Hematocrit 40.5 % (42.0-52.0); Hemoglobin 12.3 g/dL (14.1-18.0); Lymphocytes % 11.5 % (10-50); Mean Corpuscular HGB Conc 30.4 g/dL (31.8-35.4); Mean Corpuscular Hemoglobin 29.9 pg (27.0-31.2); Mean Corpuscular Volume 98.3 fl (80-94); Mean Platelet Volume 7.2 fl (7.4-10.4); Monocytes # 0.5 K/mm3 (0.1-1.0); Monocytes % 5.6 % (1.7-9.3); Neutrophils # 6.7 K/mm3 (1.8-7.8); Platelet Count 279 K/mm3 (142-424); Red Blood Count 4.12 M/mm3 (4.60-6.20); Red Cell Distribution Width 16.4 % (11.5-17.5); White Blood Count 8.7 K/mm3 (4.8-10.8)
[2023-03-29 11:52] LABS: Alanine Aminotransferase 15 U/L (12-78); Albumin Level 3.8 g/dl (3.5-5.0); Albumin/Globulin Ratio 0.8 (1.1-1.8); Alkaline Phosphatase 113 U/L (38-126); Anion Gap 9.1 mEq/L (5-15); Aspartate Amino Transferase 20 U/L (17-59); Bilirubin,Total 0.4 mg/dl (0.2-1.3); Blood Urea Nitrogen 21 mg/dl (9-20); Calcium 9.3 mg/dl (8.4-10.2); Carbon Dioxide 31 mmol/L (22.0-30.0); Chloride 105 mmol/L (98-107); Creatinine Clearance Estimated 86 mL/min (50-200); Estimated Glomerular Filt Rate 44 ml/min (>60); GFR (African American) 53 ML/MIN (>60); Globulin 4.9 g/dL (1.3-3.2); Glucose 96 mg/dl (74-100); Potassium 5.1 mmoL/L (3.5-5.1); Sodium 140 mmol/L (136-145); Total Protein,Serum 8.7 g/dl (6.3-8.2)
[2023-03-29 11:58] LABS: C-Reactive Protein 53.6 mg/L (0-4)
--- NOTE | 2023-03-29 11:59 | ED_ITS ---
Discharge Plan Disposition Patient Disposition: Home, Self-Care Prescriptions Prescriptions: No Action Januvia 100 mg tablet 100 mg PO DAILY Patient Comments: TAKE ONE TABLET BY MOUTH EVERY DAY metoprolol tartrate 25 mg tablet 25 mg PO BID Patient Comments: TAKE ONE TABLET BY MOUTH TWICE DAILY fluconazole 100 mg tablet 100 mg PO Q24H Qty: 7 0RF Rx Instructions: Pharmacy: Patient has allergy to Contrast Dye. clotrimazole-betamethasone 1-0.05 % cream 1 applic topical BID Qty: 45 1RF gabapentin 600 mg tablet 600 mg PO TID lisinopril 10 mg tablet 10 mg PO DAILY duloxetine 60 mg capsule,delayed release(DR/EC) 60 mg PO DAILY amlodipine 10 mg tablet 10 mg PO DAILY clopidogrel 75 mg tablet 75 mg PO DAILY donepezil 10 mg tablet 10 mg PO HS furosemide 20 mg tablet 20 mg PO DAILY multivitamin [Multiple Vitamins] Tablet 1 tab PO DAILY insulin glargine 100 unit/mL (3 mL) insulin pen 14 unit SQ HS Patient Comments: INJECT 14 UNITS SUBCUTANEOUSLY ONCE DAILY AT night omeprazole 20 mg capsule,delayed release(DR/EC) 20 mg PO DAILY Patient Comments: TAKE ONE CAPSULE BY MOUTH EVERY DAY trazodone 50 mg tablet 50 mg PO HS Patient Comments: TAKE ONE TABLET BY MOUTH EVERY DAY AT BEDTIME Santyl 250 unit/gram Ointment 1 applic topical DAILY 10 Days Qty: 30 0RF Dakin's Solution 0.25 % Solution 1 applic topical DAILY 30 Days Qty: 1 0RF ferrous sulfate 324 mg (65 mg iron) tablet,delayed release (DR/EC) 324 mg PO DAILY 30 Days Qty: 30 0RF diclofenac sodium [Voltaren Arthritis Pain] 1 % gel 4 g topical QID Qty: 100 0RF Rx Instructions: apply to single knee, ankle, foot; for foot includes sole/toes/top of foot Referrals Follow up/Referrals: Saran San MD [Primary Care Provider] - See instructions Activity Restrictions/Add. Instructions Additional Instructions/Restrictions: Call your family doctor to establish care for this visit to the emergency department and schedule follow-up within 48 hours to ensure improvement. If you have any worsening of your condition or any other concerning signs or symptoms, return to the emergency department or your primary care doctor for further evaluation. The redness can be getting worse for the next 72 hours. If redness continues to get worse after 04/01, return to the emergency department with family doctor for further evaluation. Clinical Impressions Clinical Impression: Cellulitis of right leg Instructions Patient Instructions: DI for Laceration Repair Discharge ED Provider: Sriram Howell General Adult HPI General Chief complaint: Wound/Laceration Stated complaint: cellulitis on R leg Time Seen by Provider: 03/29/23 10:55 Mode of Arrival: Wheelchair Source of Information: Patient Limitations: No Limitations Description of Symptoms (Recalled from ER Triage Doc. by RN): pt presents to ED fro wound care for possible cellulitis. cindy from wound care reports he sees pt every week for dressing change to right ankle. cindy reports a wound on right leary that he noticed today. reports wound was not there last week when pt was seen in wound care clinic. pt reports no injury known. History of Present Illness HPI narrative: 67-year-old male pretension, blood diabetes complicated by lower extremity amputations on the right side as well as neuropathy, CKD 3 presenting with right lower extremity swelling and redness. Unsure when it started. He went to see wound care today and wound care was concerned about the erythema and swelling. Told him to come to the emergency department for further evaluation. Patient denies fevers, chills, nausea, vomiting, but does have intermittent pain in the heel. It is mild, stabbing, sharp, and only lasts for a couple of seconds. Related Data Home Medications Medication Instructions Recorded Confirmed amlodipine 10 mg tablet 10 mg PO DAILY BLOOD PRESSURE 12/21/20 03/03/23 clopidogrel 75 mg tablet 75 mg PO DAILY Blood thinner 12/21/20 03/03/23 donepezil 10 mg tablet 10 mg PO HS MEMORY 12/21/20 03/03/23 duloxetine 60 mg capsule,delayed 60 mg PO DAILY Depression 12/21/20 03/03/23 release furosemide 20 mg tablet 20 mg PO DAILY Edema 12/21/20 03/03/23 gabapentin 600 mg tablet 600 mg PO TID NEUROPATHIC PAIN 12/21/20 03/03/23 lisinopril 10 mg tablet 10 mg PO DAILY BLOOD PRESSURE 12/21/20 03/03/23 multivitamin (Multiple Vitamins 1 tab PO DAILY Supplement 12/21/20 03/03/23 tablet) metoprolol tartrate 25 mg tablet 25 mg PO BID HEART RATE/BLOOD 03/22/21 03/03/23 PRESSURE sitagliptin phosphate 100 mg 100 mg PO DAILY Diabetes 03/22/21 03/03/23 tablet (Januvia) insulin glargine 100 unit/mL (3 14 unit SQ HS Diabetes 06/12/22 03/03/23 mL) subcutaneous pen omeprazole 20 mg capsule,delayed 20 mg PO DAILY GERD 06/12/22 03/03/23 release trazodone 50 mg tablet 50 mg PO HS SLEEP/MOOD 06/12/22 03/03/23 Previous Rx's Medication Instructions Recorded collagenase clostridium histo. 250 1 applic topical DAILY 10 days #30 06/13/22 unit/gram topical ointment (Santyl) grams ferrous sulfate 324 mg (65 mg 324 mg PO DAILY 30 days #30 tabs 06/13/22 iron) tablet,delayed release sodium hypochlorite 0.25 % 1 applic topical DAILY 30 days #1 06/13/22 solution (Dakin's Solution) ea clotrimazole-betamethasone 1 1 applic topical BID lesion #45 10/19/22 %-0.05 % topical cream grams fluconazole 100 mg tablet 100 mg PO Q24H #7 tabs 10/19/22 diclofenac sodium 1 % topical gel 4 g topical QID #100 grams 03/17/23 (Voltaren Arthritis Pain) Allergies Allergy/AdvReac Type Severity Reaction Status Date / Time Iodinated Contrast Media Allergy Intermediate Confusion Verified 03/17/23 09:06 red dye Allergy Verified 03/17/23 09:06 [facility] Disclaimer: The information contained in this section may have been updated after the patient was seen, as this information can be updated by other users. Medical History Amputation of toe of right foot Bowel perforation CKD (chronic kidney disease) stage 3, GFR 30-59 ml/min Colon perforation Diabetic foot HTN (hypertension), benign Hyperlipidemia Pneumoperitoneum Renal failure Type 2 diabetes mellitus Surgical History History of bowel resection History of cardiac cath Hx of tonsillectomy Social History Smoking Status: Current every day smoker alcohol intake: never substance use type: denies use current occupational status: disabled Travel in the last 8 weeks: None ROS Obtained: Yes All systems reviewed & no additional complaints except as documented Physical Exam General General appearance: alert and in no apparent distress Head Head exam: atraumatic and normocephalic Eye Eye exam: Present normal appearance, PERRL and EOMI ENT ENT exam: Present mucous membranes moist and other Neck Neck exam: Present normal inspection, full ROM and trachea midline Respiratory Respiratory exam: Absent respiratory distress, wheezes, stridor, accessory muscle use or prolonged expiratory phase Cardiovascular Cardiovascular exam: Present normal rhythm Abdominal Exam Abdominal exam: Present soft; Absent distention, tenderness, guarding, rebound or rigidity Extremities Exam Extremities exam: Present edema and other (Right lower extremity edema, erythema, warmth, tenderness from mid calf and leary downward. Fusiform swelling and redness. Multiple sores about right lower extremity including anterior leary extending downward toward foot.) Neurological Exam Neurological exam: Present alert, oriented X3, CN II-XII intact and normal gait; Absent motor sensory deficit Skin Skin exam: Present warm and dry; Absent diaphoresis or erythema Medical Decision Making Medical Records Medical records reviewed: Yes I reviewed the patient's medical records. Mick Inquiry Pt receiving controlled substance: No Mick was queried for this patient: No Vital Signs: 03/29/23 10:53 Temperature 98.0 F Temperature Source Oral Pulse Rate [Left Radial] 49 L Respiratory Rate 15 Blood Pressure [Right Arm] 137/74 Blood Pressure Mean [Right Arm] 95 02 Sat by Pulse Oximetry 97 Oxygen Delivery Method Room Air Lab Data Lab Results 03/29/23 11:21: WBC 8.7, RBC 4.12 L, Hgb 12.3 L, Hct 40.5 L, MCV 98.3 H, MCH 29.9, MCHC 30.4 L, RDW 16.4, Plt Count 279, MPV 7.2 L, Neut % (Auto) 77.0, Lymph % (Auto) 11.5, Hughes % (Auto) 5.6, Eos % (Auto) 5.5, Baso % (Auto) 0.3, Neut # (Auto) 6.7, Lymph # (Auto) 1.0, Hughes # (Auto) 0.5, Eos # (Auto) 0.5 H, Baso # (Auto) 0.0, ESR 48 H, Sodium 140, Potassium 5.1, Chloride 105, Carbon Dioxide 31 H, Anion Gap 9.1, BUN 21 H, Creatinine 1.60 H, Estimated Creat Clear 86, Estimated GFR 44 L, Est GFR ( Amer) 53 L, Glucose 96, Lactate 1.0, Calcium 9.3, Total Bilirubin 0.4, AST 20, ALT 15, Alkaline Phosphatase 113, C- Reactive Protein 53.6 H, Total Protein 8.7 H, Albumin 3.8, Globulin 4.9 H, Albumin/Globulin Ratio 0.8 L 03/29/23 11:21 03/29/23 11:21 Orders (Tests/Meds): ED MEDICATIONS Discontinued Medications Generic Name Dose Route Start Last Admin Trade Name Freq PRN Reason Stop Dose Admin Dalbavancin 1,125 mg/ Dextrose 250 mls @ 500 mls/hr 03/29/23 12:18 IV 03/29/23 12:19 ONCE ONE Dalbavancin 1,500 mg/ Dextrose 250 mls @ 500 mls/hr 03/29/23 12:20 03/29/23 12:43 IV 03/29/23 12:21 500 mls/hr ONCE ONE Administration ORDERS Category Date Time Status XR tibia fibula RT 2V Stat Exams 03/29/23 11:08 Completed CBC w/Auto Diff [Complete Blood Count Auto Diff] Stat Lab 03/29/23 11:21 C ompleted CMP [Comprehensive Metabolic Panel] Stat Lab 03/29/23 11:21 Completed CRP [C-Reactive Protein] Stat Lab 03/29/23 11:21 Completed ESR [Erythrocyte Sedimentation Rate] Stat Lab 03/29/23 11:21 Completed Hemoglobin A1C Stat Lab 03/29/23 11:21 Received Lactic Acid Stat Lab 03/29/23 11:21 Completed Blood Culture Stat Micro 03/29/23 11:28 Received CA venous doppler LE RT Stat Y 03/29/23 11:08 Completed Medical Decision Narrative: 67-year-old male pretension, blood diabetes complicated by lower extremity amputations on the right side as well as neuropathy, CKD 3 presenting with right lower extremity swelling and redness. Unsure when it started. He went to see wound care today and wound care was concerned about the erythema and swelling. Told him to come to the emergency department for further evaluation. Patient denies fevers, chills, nausea, vomiting, but does have intermittent pain in the heel. It is mild, stabbing, sharp, and only lasts for a couple of seconds. History was obtained via conversation with patient. On arrival, patient hemodynamically stable, alert, oriented x4, appropriate, GCS 15, moving all extremities spontaneously, pupils equal and reactive to light. Full physical exam performed and significant for swelling, redness, mild tenderness right lower extremity with associated wounds. No obvious bony involvement. Sensation decreased secondary to neuropathy, but range of motion intact. Differential includes cellulitis, DVT, deep space infection, osteomyelitis, among others. Patient was given dalbavancin for symptomatic management and correction of underlying abnormalities. Workup independently interpreted and significant for normal CBC which is nonactionable. Elevated ESR and CRP, these seem to be chronic and stable for patient. CKD with creatinine 1.6. No acute bony abnormality of the right lower extremity and no evidence of osteomyelitis. See radiology read for full review of final results. On reevaluation, patient resting comfortably in bed. Requested A1c be drawn, this was collected. Given patient presentation, workup, history, this most li gary represents acute cellulitis right lower extremity in the setting of diabetes. Because patient at baseline without signs or symptoms of clinical decompensation, deemed appropriate for discharge. Results were relayed to patient who voiced understanding and were agreeable to outpatient management and follow up. At the time of discharge the patient was hemodynamically stable, tolerating PO, and mobilizing appropriately. Return precautions were given. Critical Care Critical Care Time Critical Care Time: No
[2023-03-29 12:37] LABS: Erythrocyte Sedimentation Rate 48 mm/hr (0-20)
[2023-03-29] MEDS: DALBAVANCIN HCL 1,500 MG in DEXTROSE 5 % IN WATER 250 ML 500 MG IV (12:43)
[2023-03-29 14:39] VITALS: BP 144/62; PULSE 52; RESP 15; TEMP 36.7; O2SAT 96
== END 2023-03-29 14:47 | disposition home or self-care (01) ==
PROVIDERS: Emergency Provider Emergency Medicine; PCP Internal Medicine Adolescent Medicine
DX: L03.115 Cellulitis of right lower limb (principal); E11.22 Type 2 diabetes mellitus with diabetic chronic kidney disease; N18.30 Chronic kidney disease, stage 3 unspecified; E11.40 Type 2 diabetes mellitus with diabetic neuropathy, unspecified; I12.9 Hypertensive chronic kidney disease with stage 1 through stage 4 chronic kidney disease, or unspecified chronic kidney disease; E78.5 Hyperlipidemia, unspecified; F17.200 Nicotine dependence, unspecified, uncomplicated
CPT/HCPCS: 36415; 73590; 80053; 83036; 83605; 85025; 85651; 86140; 87040; 93971; 96374; 99285; J0875

== ENCOUNTER 2023-05-03 10:30 | Outpatient (RCR) | payer MEDICARE, MEDICAID, SELFPAY ==
--- NOTE | 2022-11-16 13:41 | HMH.PTOPWND ---
Rehab Outpt Wound Evaluation Rehab OP Wound Evaluation Start: 11/16/22 13:03 Freq: Status: Active Protocol: Document 11/16/22 13:27 LIZZY (Rec: 11/16/22 13:41 PHORAISHA [id number]) E-signed By Bassam Vargas, PT Subjective/History History History This is the initial PT eval for Cordell Boothe, 67 yowm who presents with c/o B foot wounds for at least 5-6 mos. He has hx of chronic B LE wounds for many years with prior hx of partial R foot amputation laterally. He is currently beign treated for his B foot wounds by podiatry service. He reports he also has an appointment with vascular surgery soon. He has PMH of DM, HTN, CKD, PAD, CAD. Subjective Subjective Pt has very poor hygiene at baseline and severe dry skin condition. He states, I don't ever take off my socks. He has no edema at this time and appears to have baseline mild erythema throughout B lower legs. This is definitely not an acute issue due to consistent and chronic B LE wounds. New diagnosis of cancer in past 12 No months? Wound Eval Wound Right Anterior Foot Wound Type unknown Is This a Chronic Wound Yes Wound Length (cm) 8.0 Wound Width (cm) 10.0 Wound Depth (cm) 0.1 Wound Bed Appearance [place] Wound Margins Description Indistinct Surrounding Tissue Appearance [place] Drainage Description Serous Wound Topical Solution/Irrigant Saline Irrigant Primary Dressing Composite Wound Debridement Method Forceps,Gauze,Mechanical Wound Debridement Amount of Tissue Minimal Removed Dressing Change Patient Tolerance Tolerated Well Left Heel Wound Type Diabetic Foot Ulcer Is This a Chronic Wound Yes Wound Length (cm) 2.0 Wound Width (cm) 1.0 Wound Depth (cm) 0.1 Wound Bed Appearance [place],Yellow Percentage of Slough (%) 50 Wound Margins Description Well Defined Drainage Description Serous Drainage Amount Scant Wound Topical Solution/Irrigant Saline Irrigant Primary Dressing Composite Wound Problems/Impairments Impairments Problems/Impairmments Palpation Tenderness,Wound Care Needs,Subjective C/O Pain ,Impaired Self Care/Self Management Prognosis Rehab Potential Fair Clinical Impression Consistent with Diagnosis Yes Short Term Goals Number of Weeks 2 Decrease Wound Area Yes: by 25% Alf Goals Number of Weeks 4 Decrease Wound Area Yes: by 75% Outpatient Therapy Plan of Care Treatment Plan May Include Wound Care Yes Eval/Re-Eval Yes Frequency Times per week 1 Duration Number of Weeks 4 Addendums This patient is a candidate for social No or vocational rehab? Patient/Guardian verbally acknowledges Yes understanding of treatment program and consents to further treatment? Patient/Guardian verbally acknowledges Yes understanding of diagnosis, prognosis and goals for treatment? Eval Complexity PT Charges 05692 - High Complexity PHYSICIAN CERTIFICATION: I certify the specified therapy services for Cordell Boothe are required, authorized, and reviewed every 30 days.
--- NOTE | 2022-12-14 15:17 | HMH.RHREAS ---
Rehab Reassessment Rehab OP Re-assessment Start: 11/16/22 13:03 Freq: Status: Active Protocol: Document 12/14/22 15:15 MARTINLeviAISHA (Rec: 12/14/22 15:17 PHOGARRETT [id number]) E-signed By Bassam Vargas, PT Rehab Re-assessment Subjective Subjective Pt reports, I had these bandages changed last week at the foot doctor. He has no new c/o pain or discomfort. Objective Objective Notes L heel wound remains mildly draining this date with serosanguineous drainage. L= 2 .0 cm, W= 1.0 cm, D= 0.2 cm. No necrotic tissue in the wound bed. R foot presents with no open sores, but significant dry skin. Pt hygiene remains very poor in general. Assessment Progress Assessment Progressing as Expected Assessment Notes Pt has shown significant improvement in R foot wound and moderate improvement in L heel wound. Continues to need skilled intervention to return to prior level of function. Patient goals met ST Goals Not Met LT Plan Plan Continue per initial POC. Frequency of Therapy 1 x/wk Duration of therapy 4 wks Time and Billing Re-Eval Time 12 Re-Eval Billing Units 1 PHYSICIAN CERTIFICATION: I certify the specified therapy services for Cordell Boothe are required, authorized, and reviewed every 30 days.
--- NOTE | 2023-01-18 13:34 | HMH.RHREAS ---
Rehab Reassessment Rehab OP Re-assessment Start: 11/16/22 13:03 Freq: Status: Active Protocol: Document 01/18/23 13:33 LIZZY (Rec: 01/18/23 13:34 MARTINGARRETT [id number]) E-signed By Bassam Vargas, PT Rehab Re-assessment Subjective Subjective Pt reports minimal tenderness to palpation at the site of his L heel wound. Objective Objective Notes L heel wound remains mildly draining this date with serosanguineous drainage. L= 1 .1 cm, W= 0.4 cm, D= 0.2 cm. No necrotic tissue in the wound bed. R foot presents with no open sores, but significant dry skin. Pt hygiene remains very poor in general. Assessment Progress Assessment Progressing as Expected Assessment Notes Pt has shown significant improvement in R foot wound and moderate improvement in L heel wound. Continues to need skilled intervention to return to prior level of function. Patient goals met ST Goals Not Met LT Plan Plan Continue per initial POC. Frequency of Therapy 1 x/wk Duration of therapy 4 wks Time and Billing Re-Eval Time 13 Re-Eval Billing Units 1 PHYSICIAN CERTIFICATION: I certify the specified therapy services for Cordell Boothe are required, authorized, and reviewed every 30 days.
--- NOTE | 2023-02-16 15:40 | HMH.RHREAS ---
Rehab Reassessment Rehab OP Re-assessment Start: 11/16/22 13:03 Freq: Status: Active Protocol: Document 02/16/23 15:31 LIZZY (Rec: 02/16/23 15:39 PHORAISHA [id number]) E-signed By Bassam Vargas, PT Rehab Re-assessment Subjective Subjective Pt reports no new c/o this date. Feels like he is doing ok. Objective Objective Notes L heel wound improved with scant drainage this date L= 0. 4 cm, W= 0.2 cm, D= 0.1 cm. No necrotic tissue in the wound bed. R foot presents with new open wound to the anterior R ankle of unknown cause. L= 4.0 cm, W = 3.5 cm, D= 0.1 cm. Wound bed 75% bound down, fibrous yellow slough. Assessment Progress Assessment Slower Than Expected Assessment Notes Pt has shown significant improvement in L foot wound worsening R foot wound. Continues to need skilled intervention to return to prior level of function. Patient goals met ST Goals Not Met LT Plan Plan Continue per initial POC. Frequency of Therapy 1 x/wk Duration of therapy 4 wks Time and Billing Re-Eval Time 15 Re-Eval Billing Units 1 PHYSICIAN CERTIFICATION: I certify the specified therapy services for Cordell Boothe are required, authorized, and reviewed every 30 days.
--- NOTE | 2023-03-23 15:52 | HMH.RHREAS ---
Rehab Reassessment Rehab OP Re-assessment Start: 11/16/22 13:03 Freq: Status: Active Protocol: Document 03/23/23 15:49 LIZZY (Rec: 03/23/23 15:52 LIZZY [id number]) E-signed By Bassam Vargas PT Rehab Re-assessment Subjective Subjective Pt reports no new c/o. He continues to have mild tenderness to the abilio-wound area on his anterior right ankle. Objective Objective Notes R foot presents with continued anterior ankle wound. L= 2.4 cm, W= 1.6 cm, D= 0.1 cm. Wound bed shows no slough at this time, continued moderate yellow drainage. Assessment Progress Assessment Progressing as Expected Assessment Notes Pt has shown significant improvement in R foot wound. Continues to need skilled intervention to return to prior level of function. Patient goals met ST Goals Not Met LT Plan Plan Continue per initial POC. Frequency of Therapy 1 x/wk Duration of therapy 4 wks Time and Billing Re-Eval Time 13 Re-Eval Billing Units 0 PHYSICIAN CERTIFICATION: I certify the specified therapy services for Cordell Boothe are required, authorized, and reviewed every 30 days.
--- NOTE | 2023-05-03 11:31 | HMH.RHREAS ---
Rehab Reassessment Rehab OP Re-assessment Start: 11/16/22 13:03 Freq: Status: Active Protocol: Document 05/03/23 11:29 LIZZY (Rec: 05/03/23 11:30 LIZZY [id number]) E-signed By Bassam Vargas, PT Rehab Re-assessment Subjective Subjective Pt reports no new c/o pain or discomfort in the R LE this date. I haven't had any problems with it. I missed my last appointment because my had an appointment at the same time. Objective Objective Notes Anterior R ankle wound appears well healed this date with no open sores noted. No increased edema in the R lower leg and no erythema at this time. Assessment Progress Assessment Progressing as Expected Assessment Notes Pt appears to be well healed at this time. Pt hygiene remains questionable at best, but he is currently able to care for himself. Patient goals met ST LT Plan Plan Will D/C pt to home care independently at this time. Frequency of Therapy 0 Duration of therapy 0 Time and Billing Re-Eval Time 11 Re-Eval Billing Units 0 PHYSICIAN CERTIFICATION: I certify the specified therapy services for Cordell Boothe are required, authorized, and reviewed every 30 days.
== END 2023-05-03 10:35 | disposition home or self-care (01) ==
LOC: PT 10:30
PROVIDERS: PCP Internal Medicine Adolescent Medicine; Visit Provider Internal Medicine Adolescent Medicine
DX: L97.519 Non-pressure chronic ulcer of other part of right foot with unspecified severity (principal); R09.89 Other specified symptoms and signs involving the circulatory and respiratory systems
CPT/HCPCS: 29580; 97140; 97163; 97164; 97597

== ENCOUNTER 2023-06-21 11:40 | Outpatient (CLI) | payer MEDICARE, MEDICAID, SELFPAY ==
--- NOTE | 2023-06-21 11:45 | XR_ITS ---
FINAL REPORT CLINICAL HISTORY: PAIN, JOINT, SHOULDER, RIGHT FINDINGS: Right shoulder Three views were obtained. There is no acute fracture or dislocation. There are mild degenerative changes. Possible loose body is seen inferior to the glenoid. IMPRESSION: Mild degenerative changes with possible loose body. Reviewed, Interpreted and Dictated by Fernie Nettles III, MD Transcribed by Verena Menon Authenticated and [facility]
--- NOTE | 2023-06-21 11:45 | XR_ITS ---
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 There is no acute fracture or dislocation. There are mild degenerative changes of the shoulder and elbow. No soft tissue abnormality is identified. IMPRESSION: Mild degenerative changes. Reviewed, Interpreted and Dictated by Fernie Nettles III, MD Transcribed by Verena Menon Authenticated and . [facility]
== END 2023-06-21 23:59 | disposition home or self-care (01) ==
LOC: RAD 11:41
PROVIDERS: PCP Internal Medicine Adolescent Medicine; Visit Provider Internal Medicine Adolescent Medicine
DX: M25.511 Pain in right shoulder (principal)
CPT/HCPCS: 73030; 73060

== ENCOUNTER 2023-09-29 14:21 | Outpatient (CLI) | payer MEDICARE, MEDICAID, SELFPAY ==
--- NOTE | 2023-09-29 14:25 | XR_ITS ---
FINAL REPORT CLINICAL HISTORY: open wounds of b/l feet COMPARISON: 12/19/2021 FINDINGS: RIGHT FOOT 3 views of the right foot were obtained. There has been resection of the 4th and 5th digit rays. There is no acute fracture or dislocation. There is marked sclerosis and widening at the 1st through 3rd tarsometatarsal joints. There is abnormal sclerosis and disorganization of the intertarsal joints probably due to neuropathic changes. No definite bony erosion or periosteal reaction identified. Remnants of the proximal 4th and 5th metatarsals appear sclerotic and irregular. Neuropathic changes and sclerosis are more evident than on the prior exam. IMPRESSION: Overall significant progression of neuropathic changes. Reviewed, Interpreted and Dictated by Cedric Briggs MD Transcribed by Rosi Hernandez Authenticated and [facility]
--- NOTE | 2023-09-29 14:25 | XR_ITS ---
FINAL REPORT CLINICAL HISTORY: open wounds of b/l feet COMPARISON: 03/17/2023 FINDINGS: LEFT FOOT Three views of the left foot demonstrate amputation through the proximal portion of the 2nd proximal phalanx. There is no acute fracture or dislocation. The visualized joint spaces are normally aligned. Small plantar spur is noted. IMPRESSION: No acute bony abnormality. Reviewed, Interpreted and Dictated by Cedric Briggs MD Transcribed by Rosi Hernandez Authenticated and [facility]
[2023-09-29 15:32] LABS: Basophils % 0.4 % (0.1-2.0); Eosinophils # 0.4 K/mm3 (0.0-0.4); Eosinophils % 5.5 % (0.1-12.0); Hematocrit 41.6 % (42.0-52.0); Hemoglobin 12.5 g/dL (14.1-18.0); Lymphocytes # 0.9 K/mm3 (0.7-4.5); Lymphocytes % 11.3 % (10-50); Mean Corpuscular HGB Conc 30.2 g/dL (31.8-35.4); Mean Corpuscular Hemoglobin 30.5 pg (27.0-31.2); Mean Corpuscular Volume 101.3 fl (80-94); Mean Platelet Volume 7.9 fl (7.4-10.4); Monocytes # 0.6 K/mm3 (0.1-1.0); Monocytes % 7.2 % (1.7-9.3); Neutrophils # 5.8 K/mm3 (1.8-7.8); Neutrophils % 75.6 % (37.0-80.0); Platelet Count 226 K/mm3 (142-424); Red Blood Count 4.11 M/mm3 (4.60-6.20); Red Cell Distribution Width 15.8 % (11.5-17.5); White Blood Count 7.7 K/mm3 (4.8-10.8)
[2023-09-29 15:58] LABS: Albumin Level 3.7 g/dl (3.5-5.0); Chloride 108 mmol/L (98-107)
[2023-09-29 15:59] LABS: Potassium 4.4 mmoL/L (3.5-5.1); Sodium 139 mmol/L (136-145)
[2023-09-29 16:01] LABS: Alanine Aminotransferase 18 U/L (12-78); Anion Gap 9.4 mEq/L (5-15); Aspartate Amino Transferase 27 U/L (17-59); Blood Urea Nitrogen 20 mg/dl (9-20); Carbon Dioxide 26 mmol/L (22.0-30.0); Estimated Glomerular Filt Rate 51 ml/min (>60); GFR (African American) 61 ML/MIN (>60)
[2023-09-29 16:02] LABS: Alkaline Phosphatase 87 U/L (38-126); Bilirubin,Total 0.4 mg/dl (0.2-1.3); Calcium 8.7 mg/dl (8.4-10.2); Globulin 3.8 g/dL (1.3-3.2); Glucose 138 mg/dl (74-100); Total Protein,Serum 7.5 g/dl (6.3-8.2)
[2023-09-29 16:06] LABS: Erythrocyte Sedimentation Rate 61 mm/hr (0-20)
[2023-09-29 16:07] LABS: C-Reactive Protein 12.3 mg/L (0-4)
[2023-09-29 16:10] LABS: Hemoglobin A1C 5.6 % (4.0-6.0)
== END 2023-09-29 23:59 | disposition home or self-care (01) ==
LOC: LAB 14:22
PROVIDERS: PCP Internal Medicine Adolescent Medicine; Visit Provider Nurse Practitioner
DX: E08.621 Diabetes mellitus due to underlying condition with foot ulcer (principal); L97.412 Non-pressure chronic ulcer of right heel and midfoot with fat layer exposed; L97.512 Non-pressure chronic ulcer of other part of right foot with fat layer exposed; L97.919 Non-pressure chronic ulcer of unspecified part of right lower leg with unspecified severity
CPT/HCPCS: 36415; 73630; 80053; 83036; 85025; 85651; 86140

== ENCOUNTER 2023-10-03 10:53 | Emergency (ER) | payer MEDICARE, MEDICAID, SELFPAY ==
[2023-10-03 11:05] VITALS: BP 106/58; PULSE 55; RESP 19; TEMP 37; O2SAT 96; BMI 29.5
--- NOTE | 2023-10-03 11:29 | EXP.UTC ---
Discharge Plan Disposition Patient Disposition: Home, Self-Care Condition: Good Prescriptions Prescriptions: New ondansetron 4 mg tablet,disintegrating 4 mg PO Q8H PRN (Reason: nausea and vomiting) Qty: 10 0RF No Action amlodipine 10 mg tablet 10 mg PO DAILY clopidogrel 75 mg tablet 75 mg PO DAILY gabapentin 600 mg tablet 600 mg PO DAILY Patient Comments: TAKE ONE TABLET BY MOUTH THREE TIMES DAILY MAY CAUSE DROWSINESS trazodone 50 mg tablet 50 mg PO DAILY Patient Comments: TAKE ONE TABLET BY MOUTH EVERY DAY AT BEDTIME DIRECTED donepezil 10 mg tablet 10 mg PO DAILY Patient Comments: TAKE ONE TABLET BY MOUTH EVERY DAY AT BEDTIME meloxicam 15 mg tablet 15 mg PO DAILY hydralazine 25 mg tablet 25 mg PO DAILY Patient Comments: TAKE ONE TABLET BY MOUTH THREE TIMES DAILY clopidogrel 75 mg tablet 75 mg PO DAILY Patient Comments: TAKE ONE TABLET BY MOUTH EVERY DAY amlodipine 10 mg tablet 10 mg PO DAILY Patient Comments: TAKE ONE TABLET BY MOUTH EVERY DAY lisinopril 10 mg tablet 10 mg PO DAILY Patient Comments: TAKE ONE TABLET BY MOUTH EVERY DAY omeprazole 20 mg capsule,delayed release(DR/EC) 20 mg PO DAILY Patient Comments: TAKE ONE CAPSULE BY MOUTH EVERY DAY furosemide 20 mg tablet 20 mg PO DAILY Patient Comments: TAKE ONE TABLET BY MOUTH EVERY DAY metoprolol tartrate 25 mg tablet 25 mg PO DAILY Patient Comments: TAKE ONE TABLET BY MOUTH TWICE DAILY duloxetine 60 mg capsule,delayed release(DR/EC) 60 mg PO DAILY Patient Comments: TAKE ONE CAPSULE BY MOUTH EVERY DAY Referrals Follow up/Referrals: Saran San MD [Primary Care Provider] - See instructions Activity Restrictions/Add. Instructions Additional Instructions/Restrictions: Drink extra fluids with and between meals. If you have difficulty drinking, try very small amounts of water or suck on ice chips. ? Avoid fruit juices, as these do not replace minerals and can actually increase diarrhea. ? Children and adults can use sports drinks like Poweraid and Gatoraid to replenish electrolytes. there is electrolyte powder packets that you can get at [employer] ? Eat food in small amounts and let your stomach recover. ? Get lots of rest. You may feel tired or weak. ? No greasy or fried foods for the next 24-48 hours BRAT diet Bananas Rice Applesauce and Viola ? Make sure to drink plenty of liquids ? Return if needed ? Straight to ER if any life threatening symptoms ? Zofran as prescribed ? You was given an outpatient order for diarrhea panel, please collect specimen and bring back to outpatient lab then call back to the [facility] or follow up with family doctor for results ? Follow up with family doctor in the next 48-72 hours if no improvement or any worsening of symptoms Clinical Impressions Clinical Impression: Upset stomach Instructions Patient Instructions: Diarrhea, DI for Nausea -- Adult, Ondansetron Print Language Print Language: Chilean Discharge ED Provider: Briana Rg [facility] [place] HPI General Stated complaint: stomach pain Mode of Arrival: Ambulatory Source of Information: Patient Limitations: No Limitations Time Seen by Provider: 10/03/23 11:29 Description of Symptoms (Recalled from Triage Doc. by RN): PATIENT C/O STOMACH CRAMPS THAT STARTED APPROX 4-5 DAYS AGO HEENT Symptoms (Recalled from RN notes): No Resp Symptoms (Recalled from RN notes): No Skin Symptoms (Recalled from RN notes): No MS Symptoms (Recalled from RN notes): No Functional Status (Recalled from RN notes): WNL History of Present Illness Provider Complaint: Patient states that he has been having diarrhea on and off for months and has seen his PCP multiple times States for the last 4-5 days on and off he has been ribeiro
[2023-10-03 11:37] VITALS: BP 106/58; PULSE 55; RESP 19; TEMP 37; O2SAT 96
[2023-10-03 14:03] LABS: Adenovirus F 40/41, stool Not Detected (NotDetected); Astrovirus Not Detected (NotDetected); Campylobacter Not Detected (NotDetected); Clostridium Difficile A/B, PCR Not Detected (NotDetected); Cryptosporidium Not Detected (NotDetected); Cyclospora Cayetanesis Not Detected (NotDetected); Entamoeba histolytica Not Detected (NotDetected); Enteroaggregative E coli Not Detected (NotDetected); Enteropathogenic E coli Not Detected (NotDetected); Enterotoxigenic E coli Not Detected (NotDetected); Giardia lamblia Not Detected (NotDetected); Norovirus Not Detected (NotDetected); Plesimonas Shigalloides, PCR Not Detected (NotDetected); Rotavirus A Not Detected (NotDetected); Salmonella, PCR Not Detected (NotDetected); Sapovirus Not Detected (NotDetected); Shiga-like toxin E coli Not Detected (NotDetected); Shigella Enterovasive E coli Not Detected (NotDetected); Vibrio Cholerae Not Detected (NotDetected); Vibrio, PCR Not Detected (NotDetected); Yersinia Entercolitica, PCR Not Detected (NotDetected)
== END 2023-10-03 11:45 | disposition home or self-care (01) ==
PROVIDERS: Emergency Provider Nurse Practitioner; PCP Internal Medicine Adolescent Medicine
DX: R11.0 Nausea (principal); R25.2 Cramp and spasm; R19.7 Diarrhea, unspecified
CPT/HCPCS: 87507; 99212; 99214; G0463

== ENCOUNTER 2023-10-06 08:56 | Emergency (ER) | payer MEDICARE, MEDICAID, SELFPAY ==
[2023-10-06 09:05] VITALS: BP 147/87; PULSE 102; RESP 20; TEMP 36.8; O2SAT 97; BMI 33.0
--- NOTE | 2023-10-06 09:33 | EXP.UTC ---
Discharge Plan Disposition Patient Disposition: Home, Self-Care Condition: Good Prescriptions Prescriptions: No Action amlodipine 10 mg tablet 10 mg PO DAILY clopidogrel 75 mg tablet 75 mg PO DAILY gabapentin 600 mg tablet 600 mg PO DAILY Patient Comments: TAKE ONE TABLET BY MOUTH THREE TIMES DAILY MAY CAUSE DROWSINESS trazodone 50 mg tablet 50 mg PO DAILY Patient Comments: TAKE ONE TABLET BY MOUTH EVERY DAY AT BEDTIME DIRECTED donepezil 10 mg tablet 10 mg PO DAILY Patient Comments: TAKE ONE TABLET BY MOUTH EVERY DAY AT BEDTIME meloxicam 15 mg tablet 15 mg PO DAILY hydralazine 25 mg tablet 25 mg PO DAILY Patient Comments: TAKE ONE TABLET BY MOUTH THREE TIMES DAILY clopidogrel 75 mg tablet 75 mg PO DAILY Patient Comments: TAKE ONE TABLET BY MOUTH EVERY DAY amlodipine 10 mg tablet 10 mg PO DAILY Patient Comments: TAKE ONE TABLET BY MOUTH EVERY DAY lisinopril 10 mg tablet 10 mg PO DAILY Patient Comments: TAKE ONE TABLET BY MOUTH EVERY DAY omeprazole 20 mg capsule,delayed release(DR/EC) 20 mg PO DAILY Patient Comments: TAKE ONE CAPSULE BY MOUTH EVERY DAY furosemide 20 mg tablet 20 mg PO DAILY Patient Comments: TAKE ONE TABLET BY MOUTH EVERY DAY metoprolol tartrate 25 mg tablet 25 mg PO DAILY Patient Comments: TAKE ONE TABLET BY MOUTH TWICE DAILY duloxetine 60 mg capsule,delayed release(DR/EC) 60 mg PO DAILY Patient Comments: TAKE ONE CAPSULE BY MOUTH EVERY DAY ondansetron 4 mg tablet,disintegrating 4 mg PO Q8H PRN (Reason: nausea and vomiting) Qty: 10 0RF Referrals Follow up/Referrals: Saran San MD [Primary Care Provider] - See instructions Activity Restrictions/Add. Instructions Additional Instructions/Restrictions: Drink extra fluids with and between meals. If you have difficulty drinking, try very small amounts of water or suck on ice chips. ? Avoid fruit juices, as these do not replace minerals and can actually increase diarrhea. ? Children and adults can use sports drinks to replenish electrolytes. Younger children and infants should use products formulated for children, like oral rehydration solutions. ? Eat food in small amounts and let your stomach recover. ? Get lots of rest. You may feel tired or weak. ? No greasy or fried foods for the next 24-48 hours BRAT diet Bananas Rice Apples and [place] ? Make sure to drink plenty of liquids ? Return if needed ? Straight to ER if any life threatening symptoms ? Follow up with family doctor in the next 48-72 hours if no improvement or any worsening of symptoms avoid?foods that are high in fat, saturated fat, and sugar.?These include:? High-fat foods:?Fried foods, buttered foods, fatty cuts of meat, sausages, salami, redman, whole milk, ice cream, processed cheese, and egg yolks? Saturated fat:?Butter, ghee, lard, cream, hard cheeses, cakes, biscuits, and foods containing coconut or palm oil? Sugar-sweetened drinks:?Soda and other sugar-sweetened drinks? Refined white flour:?Pasta and white bread, which contain little to no fiber? Suspected food allergens:?Dairy (milk, cheese, and ice cream), wheat (gluten), soy, corn, preservatives, and chemical food additives? Creamy soups and pasta sauces:?Creamy soups and cream-based pasta sauces? Packaged snacks:?Potato chips, nut and granola bars, and mixed nuts? Foods that are easy on the stomach Fruits and vegetables:?Fresh fruits and vegetables, especially cooked vegetables like carrots, peas, and spinach? Whole grains:?Whole-wheat breads, brown rice, oats, and bran cereal? Lean meats and fish:?Chicken, turkey, and cold-water fish? Low-fat dairy:?Low-fat, 1%, or fat-free dairy products, and fat-free cheeses? Plant-based proteins:?Beans, lentils, chickpeas,
[2023-10-06 09:36] VITALS: BP 147/87; PULSE 102; RESP 20; TEMP 36.8; O2SAT 97
== END 2023-10-06 09:42 | disposition home or self-care (01) ==
PROVIDERS: Emergency Provider Nurse Practitioner; PCP Internal Medicine Adolescent Medicine
DX: R11.0 Nausea (principal); R19.7 Diarrhea, unspecified; R25.2 Cramp and spasm
CPT/HCPCS: 99212; 99213; G0463

== ENCOUNTER 2023-10-30 14:31 | Outpatient (CLI) | payer MEDICARE, MEDICAID, SELFPAY ==
--- NOTE | 2023-10-30 14:36 | US_ITS ---
FINAL REPORT CLINICAL HISTORY: decreased sensation of b/l LE,DM,WOUND RT FOOT,HTN,CLAUDICATION,PVD,STENTS RLE,PRIOR AMPUTATION 2ND TOE LEFT FOOT,PRIOR AMPUTATION OF 4TH AND 5TH TOES RIGHT FOOT FINDINGS: LOWER EXTREMITY SEGMENTAL PRESSURE MEASUREMENTS FINDINGS: Pressure indices are as follows: RIGHT LOWER EXTREMITY: Upper thigh: 1.01 Calf: 1.15 Ankle, posterior tibial artery: 1.08 Ankle, dorsalis pedis: 1.10 Toe: 0.93 Comments: LEFT LOWER EXTREMITY: Upper thigh: 1.07 Calf: 1.16 Ankle, posterior tibial artery: 1.28 Ankle, dorsalis pedis: 1.14 Toe: 0.93 Comments: IMPRESSION: Unremarkable exam. Reviewed, Interpreted and Dictated by Williams Mcclendon MD Transcribed by Anai Gillespie Authenticated and [facility]
--- NOTE | 2023-10-30 15:12 | MR_ITS ---
FINAL REPORT CLINICAL HISTORY: evaluate for Osteomyelitis. wound on dorsal aspect of foot COMPARISON: 06/27/2022 FINDINGS: Multiplanar MR imaging of the right foot was performed without contrast. 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 The previous bone marrow edema seen in multiple midfoot structures has largely resolved. There is no evidence of bone marrow edema to suggest osteomyelitis. Residual bone marrow edema in the proximal metatarsals has improved since the prior exam. No fluid collections are present. There is increased soft tissue signal in the dorsal hindfoot with minimal fluid extending between the extensor digitorum and the extensor hallicus longus which likely represents a loculated focus of cellulitis near an open wound. The flexor and extensor tendons are intact. No ligamentous injury is identified. The musculature is intact. The plantar aponeurosis is intact. IMPRESSION: Advanced neuropathic changes are once again noted in the midfoot. There is no bone marrow edema to suggest osteomyelitis. There is no loculated fluid collection to suggest an abscess. Reviewed, Interpreted and Dictated by Williams Mcclendon MD Transcribed by Monica Wilburn Authenticated and [facility]
== END 2023-10-30 23:59 | disposition home or self-care (01) ==
LOC: RT 14:33
PROVIDERS: PCP Internal Medicine Adolescent Medicine; Visit Provider Nurse Practitioner
DX: R09.89 Other specified symptoms and signs involving the circulatory and respiratory systems (principal); E08.621 Diabetes mellitus due to underlying condition with foot ulcer; L97.412 Non-pressure chronic ulcer of right heel and midfoot with fat layer exposed
CPT/HCPCS: 73718; 93923

== ENCOUNTER 2023-11-09 08:15 | Emergency (ER) | payer MEDICARE, MEDICAID, SELFPAY ==
--- NOTE | 2023-11-09 08:38 | ED_ITS ---
Discharge Plan Disposition Patient Disposition: Home, Self-Care Condition: Good Prescriptions Prescriptions: New ibuprofen [IBU] 800 mg tablet 800 mg PO Q8HP PRN (Reason: Moderate Pain) Qty: 30 0RF No Action amlodipine 10 mg tablet 10 mg PO DAILY clopidogrel 75 mg tablet 75 mg PO DAILY doxycycline hyclate 100 mg tablet 100 mg PO BID 14 Days Qty: 28 0RF gabapentin 600 mg tablet 600 mg PO DAILY Patient Comments: TAKE ONE TABLET BY MOUTH THREE TIMES DAILY MAY CAUSE DROWSINESS trazodone 50 mg tablet 50 mg PO DAILY Patient Comments: TAKE ONE TABLET BY MOUTH EVERY DAY AT BEDTIME DIRECTED donepezil 10 mg tablet 10 mg PO DAILY Patient Comments: TAKE ONE TABLET BY MOUTH EVERY DAY AT BEDTIME meloxicam 15 mg tablet 15 mg PO DAILY hydralazine 25 mg tablet 25 mg PO DAILY Patient Comments: TAKE ONE TABLET BY MOUTH THREE TIMES DAILY clopidogrel 75 mg tablet 75 mg PO DAILY Patient Comments: TAKE ONE TABLET BY MOUTH EVERY DAY amlodipine 10 mg tablet 10 mg PO DAILY Patient Comments: TAKE ONE TABLET BY MOUTH EVERY DAY lisinopril 10 mg tablet 10 mg PO DAILY Patient Comments: TAKE ONE TABLET BY MOUTH EVERY DAY omeprazole 20 mg capsule,delayed release(DR/EC) 20 mg PO DAILY Patient Comments: TAKE ONE CAPSULE BY MOUTH EVERY DAY furosemide 20 mg tablet 20 mg PO DAILY Patient Comments: TAKE ONE TABLET BY MOUTH EVERY DAY metoprolol tartrate 25 mg tablet 25 mg PO DAILY Patient Comments: TAKE ONE TABLET BY MOUTH TWICE DAILY duloxetine 60 mg capsule,delayed release(DR/EC) 60 mg PO DAILY Patient Comments: TAKE ONE CAPSULE BY MOUTH EVERY DAY ondansetron 4 mg tablet,disintegrating 4 mg PO Q8H PRN (Reason: nausea and vomiting) Qty: 10 0RF Referrals Follow up/Referrals: Keron Alicea DO [Staff Physician] - See instructions Saran San MD [Primary Care Provider] - See instructions Activity Restrictions/Add. Instructions Additional Instructions/Restrictions: Rest the extremity, apply ice for 15 minutes as tolerated three or four times per day, Elevate the extremity as tolerated while you are resting. Take ibuprofen (if you can take this) for pain. I sent in a prescription to your pharmacy. Follow up with Dr. Alicea (orthopedics). I put in a referral but you need to call his office and schedule an appointment. Follow up with your regular doctor. GO TO THE ER FOR ANY WORSENING SYMPTOMS Clinical Impressions Clinical Impression: Contusion of thigh, right, Right thigh pain, Pain of right hip Instructions Patient Instructions: Contusion, DI for Contusion Print Language Print Language: New Zealander Discharge ED Provider: James Clinton [facility] [place], [place] General Stated complaint: ao 11/07, right leg pain Time Seen by Provider: 11/09/23 08:38 History of Present Illness Provider Complaint: He states that he cares for his bed fast at home. 2 days ago he was trying to turn her and change her bed when he slipped somehow and fell. He came down on his right upper leg. Since then he has had right thigh and hip pain. His pain is worse when he bears weight or walks on the extremity. He denies any other injury. Related Data Home Medications ?Medication ?Instructions ?Recorded ?Confirmed amlodipine 10 mg tablet 10 mg PO DAILY BLOOD PRESSURE 12/21/20 11/01/23 clopidogrel 75 mg tablet 75 mg PO DAILY Blood thinner 12/21/20 11/01/23 amlodipine 10 mg tablet 10 mg PO DAILY 10/03/23 11/01/23 clopidogrel 75 mg tablet 75 mg PO DAILY 10/03/23 11/01/23 donepezil 10 mg tablet 10 mg PO DAILY 10/03/23 11/01/23 duloxetine 60 mg capsule,delayed 60 mg PO DAILY 10/03/23 11/01/23 release furosemide 20 mg tablet 20 mg PO DAILY 10/03/23 11/01/23 gabapentin 600 mg tablet 600 mg PO DAILY 10/03/23 11/01/23 hydralazine 25 mg tablet 25 mg PO DAILY 10/03/23 11/01/23 lisinopril 10 mg tablet 10 mg PO DAILY 10/03/23 11/01/23 meloxicam 15 mg tablet 15 mg PO DAILY 10/03/23 11/01/23 metoprolol tartrate 25 mg tablet 25 mg PO DAILY 10/03/23 11/01/23 omeprazole 20 mg capsule,delayed 20 mg PO DAILY 10/03/23 11/01/23 release trazodone 50 mg tablet 50 mg PO DAILY 10/03/23 11/01/23 Previous Rx's ?Medication ?Instructions ?Recorded ondansetron 4 mg disintegrating 4 mg PO Q8H PRN nausea and 10/03/23 tablet vomiting #10 tabs doxycycline hyclate 100 mg tablet 100 mg PO BID 14 days #28 tabs 10/12/23 ibuprofen 800 mg tablet (IBU) 800 mg PO Q8HP PRN Moderate Pain 11/09/23 #30 tabs Allergies Allergy/AdvReac Type Severity Reaction Status Date / Time Iodinated Contrast Media Allergy Intermediate Confusion Verified 11/01/23 15:59 red dye Allergy Verified 11/01/23 15:59 [facility] Disclaimer: The information contained in this section may have been updated after the patient was seen, as this information can be updated by other users. Medical History Hyperlipidemia HTN (hypertension), benign CKD (chronic kidney disease) stage 3, GFR 30-59 ml/min Colon perforation Renal failure Pneumoperitoneum Bowel perforation Amputation of toe of right foot Type 2 diabetes mellitus Diabetic foot Surgical History History of cardiac cath Hx of tonsillectomy History of bowel resection Social History Smoking Status: Current every day smoker alcohol intake: never substance use type: denies use current occupational status: disabled Travel in the last 8 weeks: None ROS Obtained: Yes All systems reviewed & no additional complaints except as documented Constitutional Constitutional: Denies chills and Denies fever(s) Eyes Eyes: Denies eye discharge ENT Ears, Nose, Mouth, and Throat: Denies dizziness, Denies otalgia and Denies sore throat Cardiovascular Cardiovascular: Denies chest pain Respiratory Respiratory: Denies shortness of breath, Denies chest congestion, Denies cough, Denies stridor and Denies wheezing Gastrointestinal Gastrointestingal: Denies nausea or vomiting Genitourinary Male Genitourinary: Denies difficulty urinating, Denies urinary frequency, Denies urinary hesitancy, Denies urinary incontinence and Denies urinary urgency Musculoskeletal Musculoskeletal: Reports as per HPI Integumentary/Breasts Skin/Breast: Denies redness, Denies rash and Denies wounds Neurologic Neurologic: Denies dizziness and Denies paresthesias Allergic/Immunologic Allergic/Immunologic: Denies wheezing Physical Exam General General appearance: alert and in no apparent distress Head Head exam: atraumatic, normocephalic and normal inspection Eye Eye exam: Present normal appearance, PERRL and EOMI ENT ENT exam: Present normal exam, normal oropharynx, mucous membranes moist, TM's normal bilaterally and normal external ear exam Neck Neck exam: Present normal inspection, full ROM and trachea midline; Absent meningismus or lymphadenopathy Chest Chest inspection: Present normal inspection and symmetric chest wall rise; Absent tenderness Respiratory Respiratory exam: Present normal lung sounds bilaterally; Absent respiratory distress Cardiovascular Cardiovascular exam: Present regular rate and normal rhythm; Absent JVD Abdominal Exam Abdominal exam: Present soft and normal bowel sounds; Absent distention, tenderness or guarding Extremities Exam Extremities exam: Present normal capillary refill; Absent calf tenderness Expanded Lower Extremity Exam Right: Hip/Pelvis exam: Present full ROM and pelvis stable; Absent tenderness, swelling, ecchymosis, deformity, dislocation, external rotation, internal rotation, shortening of leg, pain on hip/pelvis palpation, hip pain on leg movement, erythema, laceration or abrasion Upper leg exam: Present full ROM and tenderness; Absent swelling, abrasion, laceration, ecchymosis, deformity, crepitus, dislocation or erythema Knee exam: Present normal inspection, full ROM and knee extension intact; Absent tenderness, swelling, abrasion, laceration, ecchymosis, deformity, crepitus, dislocation, erythema, effusion, anterior drawer sign, posterior draw sign, pain with valgus, laxity with valgus, pain with varus or laxity with varus Lower leg exam: Present normal inspection, full ROM and Achilles tendon intact; Absent tenderness or Homans' sign Ankle exam: Present normal inspection and full ROM; Absent tenderness Foot/toe exam: Present normal inspection and full ROM; Absent tenderness Neurovascular/Tendon exam: Present normal capillary refill, normal 2-point discrimination and normal fine/light touch; Absent pulse deficit, motor deficit, sensory deficit, tendon deficit, extremity cold to touch or pallor Gait: observed and normal Back Exam Back exam: Present normal inspection; Absent tenderness Neurological Exam Neurological exam: Present alert and oriented X3 Psychiatric Psychiatric exam: Present normal affect and normal mood Skin Skin exam: Present warm, dry, intact and normal color Lymphatic Lymphatic Findings: no adenopathy Medical Decision Making Medical Records Medical records reviewed: No I reviewed the patient's medical records. Screening: Per USPSTF and CDC recommendations, given the prevalence of disease in our region, it is our hospital?s policy to screen for HIV and viral Hepatitis for all patients aged 18 and over and those with ongoing risk factors. Mick Inquiry Pt receiving controlled substance: No
--- NOTE | 2023-11-09 08:51 | XR_ITS ---
FINAL REPORT CLINICAL HISTORY: fall 11/06 FINDINGS: RIGHT HIP Two views of the right hip demonstrate no acute fracture or dislocation. The joint spaces appear normal. The visualized bony structures are well aligned. There is a partially visualized right iliac stent. No soft tissue abnormality is seen. IMPRESSION: No acute bony abnormality. Reviewed, Interpreted and Dictated by Cedric Briggs MD Transcribed by Anai Gillespie Authenticated and [facility]
--- NOTE | 2023-11-09 08:51 | XR_ITS ---
FINAL REPORT CLINICAL HISTORY: fall 11/06 FINDINGS: RIGHT FEMUR 2 views were obtained. There is no acute fracture or dislocation. Visualized joint spaces are normally aligned. An abdominal aortic endograft is in place. Soft tissues are unremarkable. IMPRESSION: No acute bony abnormality. Reviewed, Interpreted and Dictated by Cedric Briggs MD Transcribed by Anai Gillespie Authenticated and [facility]
[2023-11-09 08:57] VITALS: BP 141/59; PULSE 54; RESP 16; TEMP 35.5; O2SAT 98; BMI 29.9
--- NOTE | 2023-11-09 09:30 | PC.NURSE ---
CONTACTED ILAN BAKER WITH [facility] ABOUT WORRIES FOR PATIENTS OVERALL LIVING CONDITION AND WELLBEING. LIVE BEDBUGS CRAWLING ON THE PATIENT, AND UNKEPT APPEARANCE. WILL COMPLETE APS REFERRAL AND GIVE PATIENT WRITTEN RESOURCES AVAILABLE.
--- NOTE | 2023-11-09 09:53 | PC.NURSE ---
Addendum entered by Wendy Marie 11/09/23 11:50: Per [facility] this report does NOT meet criteria for investigation. Original Note: SPOKE WITH DAMON AT [facility], CODE [id number].
--- NOTE | 2023-11-09 11:28 | PC.NURSE ---
PATIENT LFET WITHOUT TREATMENT, SPOKE TO PROVIDER ANJALI LEES, STATES HAS A AT HOME THAT NEEDS HIM. ANJALI EXPLAINED OPTIONS AND PATIENT LFET
[2023-11-09 11:31] VITALS: BP 141/59; PULSE 54; RESP 16; TEMP 35.5
== END 2023-11-09 11:31 | disposition home or self-care (01) ==
PROVIDERS: Emergency Provider Nurse Practitioner Family; PCP Internal Medicine Adolescent Medicine
DX: S70.01XA Contusion of right hip, initial encounter (principal); W01.10XA Fall on same level from slipping, tripping and stumbling with subsequent striking against unspecified object, initial encounter
CPT/HCPCS: 73502; 73552; 99213; G0381

== ENCOUNTER 2023-12-06 16:43 | Outpatient (CLI) | payer MEDICARE, MEDICAID, SELFPAY ==
--- NOTE | 2023-12-06 16:52 | XR_ITS ---
PROCEDURE INFORMATION: Exam: XR Right Foot Complete; Alignment Exam date and time: 12/06/2023 5:00 PM Age: 68 years old Clinical indication: Pain; Foot; Right; Additional info: Foot pain TECHNIQUE: Imaging protocol: Radiologic exam of the right foot. Views: 3 or more views. COMPARISON: CR XR FOOT RT MIN 3V 06/11/2022 5:58 PM FINDINGS: Bones/joints: Findings of Charcot arthropathy which has progressed from comparison with collapse of the midfoot and diffuse soft tissue swelling. There is a plantar calcaneal enthesophyte. There is a dorsal calcaneal enthesophyte. There is fracture of a large osteophyte along the lateral aspect of the foot which is new from prior. Soft tissues: See Bones/joints finding. IMPRESSION: Progressive findings of Charcot arthropathy with significant destruction of the midfoot, underlying osteomyelitis would be difficult to exclude by radiograph.
== END 2023-12-06 23:59 | disposition home or self-care (01) ==
LOC: RAD 16:45
PROVIDERS: PCP Internal Medicine Adolescent Medicine; Visit Provider Nurse Practitioner
DX: M79.671 Pain in right foot (principal)
CPT/HCPCS: 73630

== ENCOUNTER 2023-12-16 11:49 | Emergency (ER) | payer MEDICARE, MEDICAID, SELFPAY ==
[2023-12-16 12:15] VITALS: BP 131/86; PULSE 72; RESP 18; TEMP 36.8; O2SAT 100; BMI 35.2
--- NOTE | 2023-12-16 13:12 | ED_ITS ---
Discharge Plan Disposition Patient Disposition: Home, Self-Care Condition: Good Prescriptions Prescriptions: New diclofenac sodium 3 % gel 1 applic topical BID Qty: 100 0RF tizanidine 4 mg tablet 4 mg PO Q8H PRN (Reason: muscle spasticity) Qty: 30 0RF No Action gabapentin 600 mg tablet 600 mg PO TID Patient Comments: TAKE ONE TABLET BY MOUTH THREE TIMES DAILY MAY CAUSE DROWSINESS trazodone 50 mg tablet 50 mg PO HS Patient Comments: TAKE ONE TABLET BY MOUTH EVERY DAY AT BEDTIME DIRECTED donepezil 10 mg tablet 10 mg PO HS Patient Comments: TAKE ONE TABLET BY MOUTH EVERY DAY AT BEDTIME hydralazine 25 mg tablet 25 mg PO DAILY Patient Comments: TAKE ONE TABLET BY MOUTH THREE TIMES DAILY clopidogrel 75 mg tablet 75 mg PO DAILY Patient Comments: TAKE ONE TABLET BY MOUTH EVERY DAY amlodipine 10 mg tablet 10 mg PO DAILY Patient Comments: TAKE ONE TABLET BY MOUTH EVERY DAY trazodone 150 mg tablet 150 mg PO DAILY Patient Comments: TAKE ONE TABLET BY MOUTH EVERY DAY IN THE EVENING lisinopril 10 mg tablet 10 mg PO DAILY Patient Comments: TAKE ONE TABLET BY MOUTH EVERY DAY omeprazole 20 mg capsule,delayed release(DR/EC) 20 mg PO DAILY Patient Comments: TAKE ONE CAPSULE BY MOUTH EVERY DAY furosemide 20 mg tablet 20 mg PO DAILY Patient Comments: TAKE ONE TABLET BY MOUTH EVERY DAY metoprolol tartrate 25 mg tablet 25 mg PO BID Patient Comments: TAKE ONE TABLET BY MOUTH TWICE DAILY duloxetine 60 mg capsule,delayed release(DR/EC) 60 mg PO DAILY Patient Comments: TAKE ONE CAPSULE BY MOUTH EVERY DAY Referrals Follow up/Referrals: Saran aSn MD [Primary Care Provider] - See instructions Activity Restrictions/Add. Instructions Additional Instructions/Restrictions: Take medication as prescribed. Use cream as directed. If symptoms persist or worse, return to clinic or go to primary care provider. Refills to Diclofenac called into the pharmacy. Clinical Impressions Clinical Impression: Neck ache, Muscle ache Instructions Patient Instructions: DI for Neck Pain Print Language Print Language: Chadian Discharge ED Provider: Mary Guerrero [facility] General Stated complaint: neck pain Mode of Arrival: Ambulatory Source of Information: Patient Limitations: No Limitations Time Seen by Provider: 12/16/23 13:03 Description of Symptoms (Recalled from Triage Doc. by RN): PATIENT C/O MUSCLE PAIN TO LEFT SIDE OF NECK SINCE MONDAY HEENT Symptoms (Recalled from RN notes): No Resp Symptoms (Recalled from RN notes): No Skin Symptoms (Recalled from RN notes): No MS Symptoms (Recalled from RN notes): Yes Functional Status (Recalled from RN notes): WNL History of Present Illness Provider Complaint: Pt reports that he woke up on Monday and his neck was very sore and stiff. He states that he took and Advil and that helped some, but he is now having a hard time even turning his head. Related Data Home Medications ?Medication ?Instructions ?Recorded ?Confirmed amlodipine 10 mg tablet 10 mg PO DAILY 12/16/23 12/16/23 clopidogrel 75 mg tablet 75 mg PO DAILY 12/16/23 12/16/23 donepezil 10 mg tablet 10 mg PO HS 12/16/23 12/16/23 duloxetine 60 mg capsule,delayed 60 mg PO DAILY 12/16/23 12/16/23 release furosemide 20 mg tablet 20 mg PO DAILY 12/16/23 12/16/23 gabapentin 600 mg tablet 600 mg PO TID 12/16/23 12/16/23 hydralazine 25 mg tablet 25 mg PO DAILY 12/16/23 12/16/23 lisinopril 10 mg tablet 10 mg PO DAILY 12/16/23 12/16/23 metoprolol tartrate 25 mg tablet 25 mg PO BID 12/16/23 12/16/23 omeprazole 20 mg capsule,delayed 20 mg PO DAILY 12/16/23 12/16/23 release trazodone 150 mg tablet 150 mg PO DAILY 12/16/23 12/16/23 trazodone 50 mg tablet 50 mg PO HS 12/16/23 12/16/23 Previous Rx's ?Medication ?Instructions ?Recorded diclofenac sodium 3 % topical gel 1 applic topical BID #100 grams 12/16/23 tizanidine 4 mg tablet 4 mg PO Q8H PRN muscle spasticity 12/16/23 #30 tabs Allergies Allergy/AdvReac Type Severity Reaction Status Date / Time Iodinated Contrast Media Allergy Intermediate Confusion Verified 11/16/23 16:07 red dye Allergy Verified 11/16/23 16:07 Worker's Comp Is this a Worker's Comp case?: No [facility] Disclaimer: The information contained in this section may have been updated after the patient was seen, as this information can be updated by other users. Medical History Hyperlipidemia HTN (hypertension), benign CKD (chronic kidney disease) stage 3, GFR 30-59 ml/min Colon perforation Renal failure Pneumoperitoneum Bowel perforation Amputation of toe of right foot Type 2 diabetes mellitus Diabetic foot Surgical History History of cardiac cath Hx of tonsillectomy History of bowel resection Social History Smoking Status: Current every day smoker alcohol intake: never substance use type: denies use current occupational status: disabled Travel in the last 8 weeks: None ROS Obtained: Yes All systems reviewed & no additional complaints except as documented Constitutional Constitutional: Reports system reviewed and no additional complaints, except as documented Eyes Eyes: Reports system reviewed and no additional complaints, except as documented ENT Ears, Nose, Mouth, and Throat: Reports system reviewed and no additional complaints, except as documented and Reports neck pain Cardiovascular Cardiovascular: Reports system reviewed and no additional complaints, except as documented Respiratory Respiratory: Reports system reviewed and no additional complaints, except as documented Gastrointestinal Gastrointestingal: Reports system reviewed and no additional complaints, except as documented Genitourinary Male Genitourinary: Reports system reviewed and no additional complaints, except as documented Musculoskeletal Musculoskeletal: Reports system reviewed and no additional complaints, except as documented, Reports myalgias, Reports neck pain and Reports stiffness Integumentary/Breasts Skin/Breast: Reports system reviewed and no additional complaints, except as documented Neurologic Neurologic: Reports system reviewed and no additional complaints, except as documented Endocrine Endocrine: Reports system reviewed and no additional complaints, except as documented Hematologic/Lymphatic Henatologic/Lymphatic: Reports system reviewed and no additional complaints, except as documented Allergic/Immunologic Allergic/Immunologic: Reports system reviewed and no additional complaints, except as documented Physical Exam General General appearance: alert Comment: Pt is covered in bed bugs. Head Head exam: atraumatic, normocephalic and other Eye Eye exam: Present normal appearance ENT ENT exam: Present mucous membranes moist Expanded ENT Exam External ear exam: Present normal external inspection Nasal speculum exam: Bilateral: normal Mouth exam: Present normal external inspection Teeth exam: Present dental caries and fractured tooth # Throat exam: Present normal inspection Neck Neck exam: Present other Expanded Neck Exam Neck exam focused ED: Present tenderness (other) Neck image: 2 1. muscle tightness and tenderness Chest Chest inspection: Present normal inspection and symmetric chest wall rise Respiratory Respiratory exam: Present other Expanded Respiratory Exam Location: Right: wheezes, Upper: wheezes and Lower: wheezes Cardiovascular Cardiovascular exam: Present regular rate and normal rhythm Abdominal Exam Abdominal exam: Present soft Extremities Exam Extremities exam: Present normal inspection Back Exam Back exam: Present normal inspection Neurological Exam Neurological exam: Present alert and oriented X3 Psychiatric Psychiatric exam: Present normal affect and normal mood Expanded Skin Exam Type of lesion: Present abrasion Distribution: generalized Description: Present other (excoriated areas and dry skin ) Lymphatic Lymphatic Findings: no adenopathy Medical Decision Making Medical Records Screening: Per USPSTF and CDC recommendations, given the prevalence of disease in our region, it is our hospital?s policy to screen for HIV and viral Hepatitis for all patients aged 18 and over and those with ongoing risk factors. Mick Inquiry Pt receiving controlled substance: No Mick was queried for this patient: No Vital Signs: 12/16/23 12:15 Temperature 98.3 F Temperature Source Oral Pulse Rate [Left Brachial] 72 Respiratory Rate 18 Blood Pressure [Left Arm] 131/86 Blood Pressure Mean [Left Arm] 101 Blood Pressure Source [Left Arm] Automatic Cuff Blood Pressure Position [Left Arm] Sitting 02 Sat by Pulse Oximetry 100 Oxygen Delivery Method Room Air
[2023-12-16 13:43] VITALS: BP 131/86; PULSE 72; RESP 18; TEMP 36.8; O2SAT 100
== END 2023-12-16 13:44 | disposition home or self-care (01) ==
PROVIDERS: Emergency Provider Nurse Practitioner Family; PCP Internal Medicine Adolescent Medicine
DX: M54.2 Cervicalgia (principal)
CPT/HCPCS: 99213; G0381

== ENCOUNTER 2023-12-18 10:09 | Outpatient (POV) | payer MEDICARE, MEDICAID, SELFPAY ==
--- NOTE | 2023-12-18 10:23 | EXP.PAIN.OV ---
HPI Data of Consult Patient: new to practice Consult date: 12/18/23 Requesting Physician: Magda Alicea APRN Primary Care Provider: Saran San MD Consult Narrative Reason for consult: Low back pain, bilateral leg pain History of present illness: Mr. Boothe is a 68 year old male who presents today as a new patient. He is a referral from Alaina mathis. Today he rates his pain an 8 out of 10. Patient's main complaint is bilateral leg pain and describes it as a constant aching, hurting sensation that is just occasionally sending sharp shooting pains to his toes with some tingling. Patient states this been going on for at least 10 years and progressively worsening. He has tried oral medications, heat and ice and topicals with minimal relief. Patient has had physical therapy however it made his pain worse. Patient states that he has recently been to a provider in [place] who did state that the blood flow to his legs was good and felt like it was more related to nerve damage. 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 Patient does state overall the low back pain is more of a tenderness or soreness. Patient does state that he has difficulty walking for longer periods of time due to the pain. He states it does help to hold onto something as he ambulates. Patient does state that the pain is worse with increased activity and he frequently has to stop and take multiple breaks. He does state the pain is interfering with his ability to perform activities of daily living such as cooking and cleaning.Patient is on Plavix daily, tizanidine 4 mg 3 times daily as needed, duloxetine 60 mg daily and Voltaren cream. Patient is currently on gabapentin 600 mg 3 times a day from his primary care Dr. San. His Mick has been reviewed and is appropriate. CC: Magda Alicea APRN [facility] Disclaimer: The information contained in this section may have been updated after the patient was seen, as this information can be updated by other users. Medical History Hyperlipidemia HTN (hypertension), benign CKD (chronic kidney disease) stage 3, GFR 30-59 ml/min Colon perforation Renal failure Pneumoperitoneum Bowel perforation Amputation of toe of right foot Type 2 diabetes mellitus Diabetic foot Surgical History History of cardiac cath Hx of tonsillectomy History of bowel resection Family History (Updated 12/18/23 @ 11:15 by Mel Spangler RN) Other Unknown family medical history Social History (Updated 12/18/23 @ 11:16 by Mel Spangler RN) Smoking Status: Current every day smoker alcohol intake: never substance use type: denies use current occupational status: disabled Travel in the last 8 weeks: None Review of Systems Review of Systems Review of systems:: pertinent systems reviewed and negative unless documented below Review of systems (narrative): Review of Systems: General: No recent weight changes, no fever, no sleep disturbances Respiratory: No cough, no shortness of air, no recurring pulmonary infections Cardiovascular/peripheral vascular: No chest pain, no palpitations, no edema, no shortness of breath Gastrointestinal: No new onset incontinence, normal bowel movements reported Genitourinary: No new onset incontinence Musculoskeletal: Low back pain, leg pain bilaterally Psychiatric: [Normal mood/affect] Neurological: [Denies weakness in extremities], [denies balance issues] Meds Home Medications and Allergies Home Medications ?Medication ?Instructions ?Recorded ?Confirmed ?Type amlodipine 10 mg tablet 10 mg PO DAILY 12/16/23 12/18/23 History clopidogrel 75 mg tablet 75 mg PO DAILY 12/16/23 12/18/23 History diclofenac sodium 3 % topical gel 1 applic topical BID #100 grams 12/16/23 12/18/23 Rx donepezil 10 mg tablet 10 mg PO HS 12/16/23 12/18/23 History duloxetine 60 mg capsule,delayed 60 mg PO DAILY 12/16/23 12/18/23 History release furosemide 20 mg tablet 20 mg PO DAILY 12/16/23 12/18/23 History gabapentin 600 mg tablet 600 mg PO TID 12/16/23 12/18/23 History hydralazine 25 mg tablet 25 mg PO DAILY 12/16/23 12/18/23 History lisinopril 10 mg tablet 10 mg PO DAILY 12/16/23 12/18/23 History metoprolol tartrate 25 mg tablet 25 mg PO BID 12/16/23 12/18/23 History omeprazole 20 mg capsule,delayed 20 mg PO DAILY 12/16/23 12/18/23 History release tizanidine 4 mg tablet 4 mg PO Q8H PRN muscle spasticity 12/16/23 12/18/23 Rx #30 tabs trazodone 150 mg tablet 150 mg PO DAILY 12/16/23 12/18/23 History New Prescriptions to Start Prescriptions: Allergies Allergy/AdvReac Type Severity Reaction Status Date / Time Iodinated Contrast Media Allergy Intermediate Confusion Verified 11/16/23 16:07 red dye Allergy Verified 11/16/23 16:07 Objective Narrative: Physical Exam: General: Alert and oriented x3, no acute distress, pleasant and cooperative Lungs: Respirations even and unlabored, symmetrical chest expansion Eyes: PERRL Musculoskeletal: Flexion and extension of lumbar [spine] somewhat guarded secondary to pain, [antalgic gait noted] Neurological: Speech clear, no gross sensory deficit Additional findings Additional findings: FINDINGS: Bones/joints: There is preservation of vertebral alignment. Age-indeterminate likely acute, incomplete burst fracture involving the L1 superior endplate. Minimal buckling of the posterosuperior cortex into the spinal canal noted. There is approximate 50% height loss. Sacroiliac joints are intact. Spleen: Multiple splenic granulomas. Stomach and bowel: Postsurgical changes related to enteroenteric anastomosis in the lower abdomen. Vasculature: Aortic bi iliac stent graft noted. Soft tissues: Unremarkable. IMPRESSION: Age-indeterminate, likely acute incomplete burst fracture involving the L1 superior endplate. (A3 of the spine classification system.) Assessment and Plan *Assessment and plan (1) Degenerative disc disease, lumbar: Status: Acute Category: Medical Code(s): M51.369 - Other intervertebral disc degeneration, lumbar region without mention of lumbar back pain or lower extremity pain (2) Lumbar radiculopathy: Status: Acute Category: Medical Code(s): M54.16 - Radiculopathy, lumbar region (3) Burst fracture of lumbar vertebra: Status: Acute Category: Medical Code(s): S32.001A - Stable burst fracture of unspecified lumbar vertebra, initial encounter for closed fracture Plan Patient is experiencing significant pain with tenderness with palpation across his low back that does have tingling going down into his lower extremities bilaterally. Patient did have limited range of motion of his lumbar spine during today's visit. I did discuss with the patient that I do believe he would benefit from a lumbar epidural steroid injection. Risk and benefits were discussed with the patient and he would like to proceed forward with this plan of care. Patient has tried and failed conservative therapy including continued at home stretching exercise for longer than 12 weeks. Patient will be scheduled for an LESI L4-L5 under fluoroscopy. Patient is currently on blood thinners and was counseled we will have to call Dr. San's office and confirm that he can stop this medication prior to this procedure. Patient acknowledges understanding agrees with plan of care. Patient has been instructed to contact the clinic with any concerns before the next appointment. Dr. Fontana has reviewed this note and agrees with this plan of care. This note was dictated using voice recognition software and make contain errors or omissions. All injections are used with Lidocaine or Bupivacaine and Depo Medrol.
[2023-12-18 11:15] VITALS: BP 152/82; PULSE 55; RESP 18; O2SAT 98; BMI 34.2
== END 2023-12-18 23:59 | disposition home or self-care (01) ==
LOC: SC.PAIN 10:10
PROVIDERS: PCP Internal Medicine Adolescent Medicine; Visit Provider Nurse Practitioner Family
DX: S32.001A Stable burst fracture of unspecified lumbar vertebra, initial encounter for closed fracture; M51.16 Intervertebral disc disorders with radiculopathy, lumbar region; Z73.89 Other problems related to life management difficulty; Z79.02 Long term (current) use of antithrombotics/antiplatelets; F17.210 Nicotine dependence, cigarettes, uncomplicated
CPT/HCPCS: 99202; G0463

== ENCOUNTER 2023-12-19 09:43 | Outpatient (CLI) | payer MEDICARE, MEDICAID, SELFPAY ==
[2023-12-19 10:04] LABS: Basophils # 0.1 K/mm3 (0-0.2); Basophils % 0.5 % (0.1-2.0); Eosinophils # 0.3 K/mm3 (0.0-0.4); Eosinophils % 3.6 % (0.1-12.0); Hematocrit 40.1 % (42.0-52.0); Hemoglobin 12.8 g/dL (14.1-18.0); Lymphocytes # 0.7 K/mm3 (0.7-4.5); Lymphocytes % 7.7 % (10-50); Mean Corpuscular HGB Conc 31.8 g/dL (31.8-35.4); Mean Corpuscular Hemoglobin 31.3 pg (27.0-31.2); Mean Corpuscular Volume 98.4 fl (80-94); Mean Platelet Volume 7.5 fl (7.4-10.4); Monocytes # 0.7 K/mm3 (0.1-1.0); Monocytes % 7.3 % (1.7-9.3); Neutrophils # 7.6 K/mm3 (1.8-7.8); Neutrophils % 80.8 % (37.0-80.0); Platelet Count 239 K/mm3 (142-424); Red Blood Count 4.08 M/mm3 (4.60-6.20); Red Cell Distribution Width 15.7 % (11.5-17.5); White Blood Count 9.4 K/mm3 (4.8-10.8)
[2023-12-19 10:27] LABS: Alanine Aminotransferase 13 U/L (12-78); Albumin Level 3.9 g/dl (3.5-5.0); Albumin/Globulin Ratio 0.9 (1.1-1.8); Alkaline Phosphatase 81 U/L (38-126); Anion Gap 9.9 mEq/L (5-15); Aspartate Amino Transferase 22 U/L (17-59); Bilirubin,Total 0.4 mg/dl (0.2-1.3); Blood Urea Nitrogen 29 mg/dl (9-20); Calcium 8.8 mg/dl (8.4-10.2); Carbon Dioxide 30 mmol/L (22.0-30.0); Chloride 106 mmol/L (98-107); Estimated Glomerular Filt Rate 34 ml/min (>60); GFR (African American) 41 ML/MIN (>60); Globulin 4.3 g/dL (1.3-3.2); Glucose 80 mg/dl (74-100); Potassium 4.9 mmoL/L (3.5-5.1); Sodium 141 mmol/L (136-145); Total Protein,Serum 8.2 g/dl (6.3-8.2)
[2023-12-19 10:30] LABS: Hemoglobin A1C 5.5 % (4.0-6.0)
[2023-12-19 10:35] LABS: C-Reactive Protein 53.3 mg/L (0-4)
[2023-12-19 10:40] LABS: Erythrocyte Sedimentation Rate 52 mm/hr (0-20)
== END 2023-12-19 23:59 | disposition home or self-care (01) ==
PROVIDERS: PCP Internal Medicine Adolescent Medicine; Visit Provider Nurse Practitioner
DX: E08.621 Diabetes mellitus due to underlying condition with foot ulcer (principal); L97.412 Non-pressure chronic ulcer of right heel and midfoot with fat layer exposed; L03.115 Cellulitis of right lower limb
CPT/HCPCS: 36415; 80053; 83036; 85025; 85651; 86140

== ENCOUNTER 2023-12-21 08:57 | Outpatient (CLI) | payer MEDICARE, MEDICAID, SELFPAY ==
[2023-12-21 09:04] LABS: Adenovirus F 40/41, stool Not Detected (NotDetected); Astrovirus Not Detected (NotDetected); Clostridium Difficile A/B, PCR Not Detected (NotDetected); Cryptosporidium Not Detected (NotDetected); Cyclospora Cayetanesis Not Detected (NotDetected); Entamoeba histolytica Not Detected (NotDetected); Enteroaggregative E coli Not Detected (NotDetected); Enteropathogenic E coli Not Detected (NotDetected); Enterotoxigenic E coli Not Detected (NotDetected); Giardia lamblia Not Detected (NotDetected); Norovirus Not Detected (NotDetected); Plesimonas Shigalloides, PCR Not Detected (NotDetected); Rotavirus A Not Detected (NotDetected); Salmonella, PCR Not Detected (NotDetected); Sapovirus Not Detected (NotDetected); Shiga-like toxin E coli Not Detected (NotDetected); Shigella Enterovasive E coli Not Detected (NotDetected); Vibrio Cholerae Not Detected (NotDetected); Vibrio, PCR Not Detected (NotDetected); Yersinia Entercolitica, PCR Not Detected (NotDetected)
[2023-12-21 14:35] LABS: Campylobacter Detected (NotDetected)
== END 2023-12-21 23:59 | disposition home or self-care (01) ==
LOC: LAB 08:59
PROVIDERS: Nurse Practitioner Family; PCP Podiatrist; Visit Provider Internal Medicine Gastroenterology
DX: R19.7 Diarrhea, unspecified (principal)
CPT/HCPCS: 87506

== ENCOUNTER 2023-12-25 13:23 | Outpatient (CLI) | payer MEDICARE, MEDICAID, SELFPAY ==
--- NOTE | 2023-12-25 13:38 | CT_ITS ---
FINAL REPORT TECHNIQUE: Axial imaging of the right ankle was obtained without contrast. Reformatted images were also obtained and reviewed. This study was performed with techniques to keep radiation doses as low as reasonably achievable (ALARA). Individualized dose reduction techniques using automated exposure control or adjustment of mA and/or kV according to the patient's size were employed. CLINICAL HISTORY: .right ankle wound FINDINGS: A superficial skin dressing is in place. On sagittal imaging there is disorganization and fragmentation with sclerosis throughout the tarsal bones and intertarsal joints favored represent neuropathic changes. There is soft tissue inflammation anteriorly with subcutaneous emphysema anterior to the ankle. This is best seen on images 61-66. There is extensive inflammatory reaction. No discrete abscess is seen. IMPRESSION: Marked disorganization, sclerosis and fragmentation of the intertarsal and tarsometatarsal joints consistent with advanced neuropathic changes. Soft tissue inflammation of the anterior ankle with small amount of subcutaneous emphysema like related to soft tissue infection. No definite osteomyelitis seen. Although, this may be difficult to distinguish between osteomyelitis and neuropathic changes. Reviewed, Interpreted and Dictated by Cedric Briggs MD Transcribed by Anai Gillespie Authenticated and [facility]
== END 2023-12-25 23:59 | disposition home or self-care (01) ==
LOC: RAD 13:24
PROVIDERS: PCP Internal Medicine Adolescent Medicine; Visit Provider Podiatrist
DX: M86.671 Other chronic osteomyelitis, right ankle and foot (principal); E11.621 Type 2 diabetes mellitus with foot ulcer; L97.519 Non-pressure chronic ulcer of other part of right foot with unspecified severity; M14.671 Charcot's joint, right ankle and foot; T14.8XXD Other injury of unspecified body region, subsequent encounter
CPT/HCPCS: 73700

== ENCOUNTER 2023-12-28 17:14 | Outpatient (CLI) | payer MEDICARE, MEDICAID, SELFPAY | END 2023-12-28 23:59 | disposition home or self-care (01) | LOC: LAB.DROPOF 12-29 07:45 | PROVIDERS: PCP Nurse Practitioner; Visit Provider Nurse Practitioner | DX: L97.412 Non-pressure chronic ulcer of right heel and midfoot with fat layer exposed (principal); L97.512 Non-pressure chronic ulcer of other part of right foot with fat layer exposed; E08.621 Diabetes mellitus due to underlying condition with foot ulcer; S80.821A Blister (nonthermal), right lower leg, initial encounter; I87.321 Chronic venous hypertension (idiopathic) with inflammation of right lower extremity; M86.671 Other chronic osteomyelitis, right ankle and foot; L03.115 Cellulitis of right lower limb; L57.0 Actinic keratosis | CPT/HCPCS: 87070; 87077; 87186; 87205 ==

== ENCOUNTER 2024-01-05 09:14 | Emergency (ER) | payer MEDICARE, MEDICAID, SELFPAY ==
[2024-01-05 10:16] VITALS: BP 130/90; PULSE 79; RESP 20; TEMP 37.1; O2SAT 97; BMI 43.5
--- NOTE | 2024-01-05 10:24 | ED_ITS ---
Discharge Plan Disposition Patient Disposition: Home, Self-Care Condition: Good Prescriptions Prescriptions: New mupirocin 2 % ointment 1 applic topical TID 7 Days Qty: 15 0RF doxycycline hyclate 100 mg capsule 100 mg PO Q12 10 Days Qty: 20 0RF No Action sulfamethoxazole-trimethoprim [Bactrim DS] 800-160 mg tablet 1 tab PO BID 14 Days Qty: 28 0RF Metamucil 3.4 gram/5.4 gram powder 1 tbsp PO DAILY Qty: 660 11RF Rx Instructions: mix into at least 8 oz of water or juice before administering azithromycin 500 mg tablet See Rx Instructions PO .COMPLEX Qty: 3 0RF Rx Instructions: For 500 mg dose pack: take 500 mg once daily for 3 days PO gentamicin 0.1 % ointment 1 applic topical TID Qty: 30 1RF gabapentin 600 mg tablet 600 mg PO TID Patient Comments: TAKE ONE TABLET BY MOUTH THREE TIMES DAILY MAY CAUSE DROWSINESS donepezil 10 mg tablet 10 mg PO HS Patient Comments: TAKE ONE TABLET BY MOUTH EVERY DAY AT BEDTIME hydralazine 25 mg tablet 25 mg PO DAILY Patient Comments: TAKE ONE TABLET BY MOUTH THREE TIMES DAILY clopidogrel 75 mg tablet 75 mg PO DAILY Patient Comments: TAKE ONE TABLET BY MOUTH EVERY DAY amlodipine 10 mg tablet 10 mg PO DAILY Patient Comments: TAKE ONE TABLET BY MOUTH EVERY DAY trazodone 150 mg tablet 150 mg PO DAILY Patient Comments: TAKE ONE TABLET BY MOUTH EVERY DAY IN THE EVENING lisinopril 10 mg tablet 10 mg PO DAILY Patient Comments: TAKE ONE TABLET BY MOUTH EVERY DAY omeprazole 20 mg capsule,delayed release(DR/EC) 20 mg PO DAILY Patient Comments: TAKE ONE CAPSULE BY MOUTH EVERY DAY furosemide 20 mg tablet 20 mg PO DAILY Patient Comments: TAKE ONE TABLET BY MOUTH EVERY DAY metoprolol tartrate 25 mg tablet 25 mg PO BID Patient Comments: TAKE ONE TABLET BY MOUTH TWICE DAILY duloxetine 60 mg capsule,delayed release(DR/EC) 60 mg PO DAILY Patient Comments: TAKE ONE CAPSULE BY MOUTH EVERY DAY diclofenac sodium 3 % gel 1 applic topical BID Qty: 100 0RF tizanidine 4 mg tablet 4 mg PO Q8H PRN (Reason: muscle spasticity) Qty: 30 0RF Referrals Follow up/Referrals: Saran San MD [Primary Care Provider] - See instructions Activity Restrictions/Add. Instructions Additional Instructions/Restrictions: Take tylenol for pain or fever. Take the medications as directed. Follow up with your regular doctor. Please call them today to see about getting a follow appointment there early next week. GO TO THE ER FOR ANY WORSENING SYMPTOMS Clinical Impressions Clinical Impression: Cellulitis Clinical Impression: (Ruled Out): Acute osteomyelitis of right foot Instructions Patient Instructions: Cellulitis, Clindamycin, Mupirocin Print Language Print Language: Albanian Discharge ED Provider: James Clinton [facility] General Stated complaint: pain L side of shoulder to hip Mode of Arrival: Ambulatory Source of Information: Patient Time Seen by Provider: 01/05/24 10:23 Description of Symptoms (Recalled from Triage Doc. by RN): LEFT SIDED PAIN INTO SHOULDER X 3DAYS HEENT Symptoms (Recalled from RN notes): No Resp Symptoms (Recalled from RN notes): No Skin Symptoms (Recalled from RN notes): No MS Symptoms (Recalled from RN notes): Yes Functional Status (Recalled from RN notes): WNL Related Data Home Medications ?Medication ?Instructions ?Recorded ?Confirmed amlodipine 10 mg tablet 10 mg PO DAILY 12/16/23 01/11/24 clopidogrel 75 mg tablet 75 mg PO DAILY 12/16/23 01/11/24 donepezil 10 mg tablet 10 mg PO HS 12/16/23 01/11/24 duloxetine 60 mg capsule,delayed 60 mg PO DAILY 12/16/23 01/11/24 release furosemide 20 mg tablet 20 mg PO DAILY 12/16/23 01/11/24 gabapentin 600 mg tablet 600 mg PO TID 12/16/23 01/11/24 hydralazine 25 mg tablet 25 mg PO DAILY 12/16/23 01/11/24 lisinopril 10 mg tablet 10 mg PO DAILY 12/16/23 01/11/24 metoprolol tartrate 25 mg tablet 25 mg PO BID 12/16/23 01/11/24 omeprazole 20 mg capsule,delayed 20 mg PO DAILY 12/16/23 01/11/24 release trazodone 150 mg tablet 150 mg PO DAILY 12/16/23 01/11/24 Previous Rx's ?Medication ?Instructions ?Recorded diclofenac sodium 3 % topical gel 1 applic topical BID #100 grams 12/16/23 tizanidine 4 mg tablet 4 mg PO Q8H PRN muscle spasticity 11/09/24 #30 tabs psyllium husk 3.4 gram/5.4 gram 1 tbsp PO DAILY #660 grams 12/19/23 oral powder (Metamucil) azithromycin 500 mg tablet See Rx Instructions PO .COMPLEX #3 12/21/23 tabs gentamicin 0.1 % topical ointment 1 applic topical TID Infection #30 01/01/24 grams doxycycline hyclate 100 mg capsule 100 mg PO Q12 10 days #20 caps 01/05/24 mupirocin 2 % topical ointment 1 applic topical TID 7 days #15 01/05/24 grams sulfamethoxazole 800 1 tab PO BID 14 days #28 tabs 01/15/24 mg-trimethoprim 160 mg tablet (Bactrim DS) Allergies Allergy/AdvReac Type Severity Reaction Status Date / Time Iodinated Contrast Media Allergy Intermediate Confusion Verified 01/11/24 16:27 red dye Allergy Verified 01/11/24 16:27 Worker's Comp Is this a Worker's Comp case?: No [facility] Disclaimer: The information contained in this section may have been updated after the patient was seen, as this information can be updated by other users. Medical History Hyperlipidemia HTN (hypertension), benign CKD (chronic kidney disease) stage 3, GFR 30-59 ml/min Colon perforation Renal failure Pneumoperitoneum Bowel perforation Amputation of toe of right foot Type 2 diabetes mellitus Diabetic foot Surgical History History of cardiac cath Hx of tonsillectomy History of bowel resection Family History Other Unknown family medical history Social History (Updated 12/29/23 @ 14:17 by Alaina Land APRN) Smoking Status: Current every day smoker alcohol intake: never substance use type: denies use current occupational status: disabled Travel in the last 8 weeks: None ROS Obtained: Yes All systems reviewed & no additional complaints except as documented Constitutional Constitutional: Denies chills and Denies fever(s) Eyes Eyes: Denies eye discharge ENT Ears, Nose, Mouth, and Throat: Denies dizziness, Denies otalgia and Denies sore throat Cardiovascular Cardiovascular: Denies chest pain Respiratory Respiratory: Denies shortness of breath, Denies chest congestion, Denies cough, Denies stridor and Denies wheezing Gastrointestinal Gastrointestingal: Denies nausea or vomiting Musculoskeletal Musculoskeletal: Reports as per HPI and Reports arthralgias Integumentary/Breasts Skin/Breast: Reports redness and Reports rash Neurologic Neurologic: Denies dizziness and Denies paresthesias Allergic/Immunologic Allergic/Immunologic: Denies wheezing Physical Exam General General appearance: alert and in no apparent distress Head Head exam: atraumatic, normocephalic and normal inspection Eye Eye exam: Present normal appearance, PERRL and EOMI ENT ENT exam: Present normal exam, normal oropharynx, mucous membranes moist, TM's normal bilaterally and normal external ear exam Neck Neck exam: Present normal inspection, full ROM and trachea midline; Absent meningismus or lymphadenopathy Chest Chest inspection: Present normal inspection and symmetric chest wall rise; Absent tenderness Respiratory Respiratory exam: Present normal lung sounds bilaterally; Absent respiratory distress Cardiovascular Cardiovascular exam: Present regular rate and normal rhythm; Absent JVD Abdominal Exam Abdominal exam: Present soft and normal bowel sounds; Absent distention, tenderness or guarding Extremities Exam Extremities exam: Present normal inspection, full ROM and normal capillary refill; Absent calf tenderness Back Exam Back exam: Present normal inspection; Absent tenderness Neurological Exam Neurological exam: Present alert and oriented X3 Psychiatric Psychiatric exam: Present normal affect and normal mood Skin Skin exam: Present warm, dry, intact and normal color Lymphatic Lymphatic Findings: no adenopathy Medical Decision Making Medical Records Medical records reviewed: No I reviewed the patient's medical records. Screening: Per USPSTF and CDC recommendations, given the prevalence of disease in our region, it is our hospital?s policy to screen for HIV and viral Hepatitis for all patients aged 18 and over and those with ongoing risk factors. Mick Inquiry Pt receiving controlled substance: No Vital Signs: 01/05/24 10:16 Temperature 98.7 F Temperature Source Oral Pulse Rate [Left Radial] 79 Respiratory Rate 20 Blood Pressure [Left Arm] 130/90 Blood Pressure Mean [Left Arm] 103 02 Sat by Pulse Oximetry 97
[2024-01-05 11:21] VITALS: BP 130/90; PULSE 79; RESP 20; TEMP 37.1
== END 2024-01-05 11:25 | disposition home or self-care (01) ==
PROVIDERS: Emergency Provider Nurse Practitioner Family; PCP Internal Medicine Adolescent Medicine
DX: L03.115 Cellulitis of right lower limb (principal); M25.512 Pain in left shoulder; R21 Rash and other nonspecific skin eruption
CPT/HCPCS: 99212; G0381

== ENCOUNTER 2024-01-24 10:00 | Outpatient (RCR) | payer MEDICARE, MEDICAID, SELFPAY ==
--- NOTE | 2023-08-21 11:30 | HMH.PTOPWND ---
Rehab Outpt Wound Evaluation Rehab OP Wound Evaluation Start: 08/21/23 11:05 Freq: Status: Active Protocol: Document 08/21/23 11:05 LIZZY (Rec: 08/21/23 11:29 LIZZY [id number]) E-signed By Bassam Vargas, PT Subjective/History History History This is the initial PT wound care eval for Cordell Boothe, 68 yowm who presents with c/o continued R LE wounds for unknown duration. He is well known to this clinic and was last treated for similar wounds ~3 mos ago. He states, I don't know how long it's been like that, I forget. Pt presents in condition of extremely poor hygiene and reports being unsure of the last time he washed his feet. I tried a while back, but I almost fell over, so I don't do that anymore. Pt has hx of bedbugs in the past and R ankle wound presents with maggots present this date. 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 Subjective Subjective Pt has no c/o pain at this time and generally appears unconcerned about the condition of hos hygiene. Did confirm that pt has running water at home and electricity. 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 New diagnosis of cancer in past 12 No months? Wound Eval Wound Right Anterior Ankle Wound Type Stasis Ulcer Is This a Chronic Wound Yes Wound Length (cm) 7.0 Wound Width (cm) 4.1 Wound Depth (cm) 0.1 Wound Bed Appearance Thompson,Pale,Slough,Necrotic Percentage of Necrosis (Sky) (%) 75 Wound Margins Description Indistinct Surrounding Tissue Appearance Bright Red Drainage Description Purulent Drainage Amount Moderate Wound Topical Solution/Irrigant Saline Irrigant,Dakins Irrigant Primary Dressing Silver Dressing Comment opticell Ag Wound Secondary Dressing Type Unna Boot Comment co-flex 2-layer zinc compression wrap system Wound Debridement Method Forceps,Gauze,Mechanical Wound Debridement Amount of Tissue Moderate Removed Wound Debridement Result Necrotic Tissue Remains Dressing Change Patient Tolerance Tolerated Well Tapia-White Wound Assessment Tool Assessment Wound size 3= Length x Width 16.1--<36 sq cm Wound depth 4=Obscured by necrosis Wound edges 1=Indistinct, diffuse, none clearly visible Wound undermining 1=None present Necrotic tissue type 2=White/thompson non-viable tissue &/or non-adherent yellow slough Necrotic tissue amount 5=75% to 100% of wound covered Exudate type 5=Purulent: thin or thick, opaque, rogers/yellow, withour without odor Exudate amount 4=Moderate Skin color surrounding wound 2=Bright red &/or blanches to touch Peripheral tissue edema 1=No swelling or edema Peripheral tissue induration 1=None present Granulation tissue 4=Sigel, &/or dull, dusky red & /or fills < or = 25% of wound Epithelialization 5= < 25% wound covered Wound assessment total score 38 Wound Problems/Impairments Impairments Problems/Impairmments Impaired Shower/Bathing, Impaired Household Care,Wound Care Needs,Impaired Self Care/ Self Management Prognosis Rehab Potential Fair Comment Skilled therapy is necessary to decrease overall necrotic tissue and wound surface area to aid pt return to PLOF. Pt poor hygiene significantly complicates all aspects of care. Clinical Impression Consistent with Diagnosis Yes Short Term Goals Number of Weeks 4 Decrease Wound Area Yes: by 255 Decrease Drainage Yes: to MINIMAL Steel Unloader Goals Number of Weeks 6-8 Decrease Wound Area Yes: by 75% Increase Red Granulation Tissue % Yes: by 100% Patient to be Ind w/ Home Wound Care/ Yes Dressing Changes Outpatient Therapy Plan of Care Treatment Plan May Include Therapeutic Exercise Including Home Yes Exercise Program Manual Therapy Techniques Yes Neuromuscular Re-education Yes Therapeutic Activities to Return to Yes Previous Functional/Work Level ADL/Self Care Education Yes Wound Care Yes Eval/Re-Eval Yes Frequency Times per week 1-2 Duration Number of Weeks 6-8 Addendums This patient is a candidate for social No or vocational rehab? Patient/Guardian verbally acknowledges Yes understanding of treatment program and consents to further treatment? Patient/Guardian verbally acknowledges Yes understanding of diagnosis, prognosis and goals for treatment? Eval Complexity PT Charges 48092 - High Complexity PHYSICIAN CERTIFICATION: I certify the specified therapy services for Cordell Boothe are required, authorized, and reviewed every 30 days.
--- NOTE | 2023-09-26 15:38 | HMH.RHREAS ---
Rehab Reassessment Rehab OP Re-assessment Start: 08/21/23 11:05 Freq: Status: Active Protocol: Document 09/26/23 15:31 PHOGARRETT (Rec: 09/26/23 15:37 PHORNE [id number]) E-signed By Bassam Vargas, PT Anabel Wound Assessment Tool Assessment Wound size 2=Length x Width 4--<16 sq cm Wound depth 4=Obscured by necrosis Wound edges 1=Indistinct, diffuse, none clearly visible Wound undermining 1=None present Necrotic tissue type 3=Loosely adherent yellow slough Necrotic tissue amount 5=75% to 100% of wound covered Exudate type 5=Purulent: thin or thick, opaque, rogers/yellow, withour without odor Exudate amount 5=Large Skin color surrounding wound 2=Bright red &/or blanches to touch Peripheral tissue edema 3=Non-pitting edema extends > or= to 4 cm around wound Peripheral tissue induration 1=None present Granulation tissue 4=[place], &/or dull, dusky red & /or fills < or = 25% of wound Epithelialization 5= < 25% wound covered Wound assessment total score 41 Rehab Re-assessment Subjective Subjective Pt has no new c/o, but continues to have soreness throughout the R lower leg. Pain this date 07/16, It pretty much stays that bad all the time. Objective Objective Notes R anterior ankle wound: L= 6.0 cm, W= 1.8 cm, D= 0.1 cm Continued purulent drainage noted from the R Lower Leg. Increased tissue softness noted throughout the R ankle. Concerning for worsening infection of tissue. Assessment Progress Assessment Slower Than Expected Assessment Notes Minimal progress made to overall wound tissue healing at this time. Continues to have copious purulent drainage and patient's extremely poor hygiene consistently makes wound healing difficult. He needs continued skilled therapy to improve wound healing and return to PLOF. Patient goals met ST/2 LT/3 Plan Plan Continue per initial POC Frequency of Therapy 1-2 x/wk Duration of therapy 4 wks Time and Billing Re-Eval Time 12 Re-Eval Billing Units 1 PHYSICIAN CERTIFICATION: I certify the specified therapy services for Cordell Boothe are required, authorized, and reviewed every 30 days.
--- NOTE | 2023-11-07 13:37 | HMH.RHREAS ---
Rehab Reassessment Rehab OP Re-assessment Start: 08/21/23 11:05 Freq: Status: Active Protocol: Document 11/07/23 13:32 LIZZY (Rec: 11/07/23 13:37 PHORAISHA [id number]) E-signed By Bassam Vargas, PT Anabel Wound Assessment Tool Assessment Wound size 1=Length x Width <4 sq cm Wound depth 3=Full thickness skin loss involving damage or necrosis of Wound edges 1=Indistinct, diffuse, none clearly visible Wound undermining 1=None present Necrotic tissue type 2=White/thompson non-viable tissue &/or non-adherent yellow slough Necrotic tissue amount 3=25% to 50% of wound covered Exudate type 3=Serosanguineous: thin, watery, pale red/pink Exudate amount 5=Large Skin color surrounding wound 2=Bright red &/or blanches to touch Peripheral tissue edema 3=Non-pitting edema extends > or= to 4 cm around wound Peripheral tissue induration 1=None present Granulation tissue 3=Bright, beefy red; <75% & > 25% of wound filled Epithelialization 4=25% to < 50% wound covered Wound assessment total score 32 Rehab Re-assessment Subjective Subjective Pt reports he did have an MRI and MARK on B LE. He reports no new c/o pain or tenderness. Objective Objective Notes R anterior ankle wound: L= 2.2 cm, W= 1.7 cm, D= 0.1 cm Less necrotic tissue noted this date. Drainage remains heavy, but is more serosanguineous in nature. Assessment Progress Assessment Progressing as Expected Assessment Notes Moderate progress made to overall wound tissue healing at this time. Continues to have copious drainage and patient's extremely poor hygiene consistently makes wound healing difficult. He needs continued skilled therapy to improve wound healing and return to PLOF. Patient goals met ST/2 LT/3 Plan Plan Continue per initial POC Frequency of Therapy 1-2 x/wk Duration of therapy 4 wks Time and Billing Re-Eval Time 11 Re-Eval Billing Units 1 PHYSICIAN CERTIFICATION: I certify the specified therapy services for Cordell Boothe are required, authorized, and reviewed every 30 days.
--- NOTE | 2024-01-17 14:14 | HMH.RHREAS ---
Rehab Reassessment Rehab OP Re-assessment Start: 08/21/23 11:05 Freq: Status: Active Protocol: Document 01/17/24 14:02 LIZZY (Rec: 01/17/24 14:14 PHOGARRETT [id number]) E-signed By Bassam Vragas, PT Rehab Re-assessment Subjective Subjective Pt continues to c/o pain in B LE, but this is consistent and not related to his wounds typically. He has no c/o tenderness in the abilio-wound areas. Objective Objective Notes R Inferior Anterior ankle wound: L= 1.4 cm, W= 0.4 cm, D = 0.2 cm. Overall R foot appears much worse with new onset open wounds to R great toe and R plantar foot surface. No foul odor noted at this time. Assessment Progress Assessment Slower Than Expected Assessment Notes Pt has shown increased number of total wounds on the R foot despite the R anterior ankle wound size decreasing. His hygiene remains very poor and the chances of R foot wound infection remain very high. He continues to need skilled therapy to reduce overall wound size and return pt to PLOF. Patient goals met ST/2 LT/3 Plan Plan Continue per initial POC Frequency of Therapy 1-2 x/wk Duration of therapy 4 wks Time and Billing Re-Eval Time 9 Re-Eval Billing Units 0 Charge for PT reassessment? No Charge for OT reassessment? No PHYSICIAN CERTIFICATION: I certify the specified therapy services for Cordell Boothe are required, authorized, and reviewed every 30 days.
== END 2024-01-24 23:59 | disposition home or self-care (01) ==
LOC: PT 10:00
PROVIDERS: Visit Provider Internal Medicine Adolescent Medicine
DX: M79.671 Pain in right foot (principal); S91.301A Unspecified open wound, right foot, initial encounter
CPT/HCPCS: 29580; 97163; 97164; 97597; 97598

== ENCOUNTER 2024-01-25 18:12 | Emergency (ER) | payer MEDICARE, MEDICAID, SELFPAY ==
[2024-01-25 18:12] VITALS: BP 148/78; PULSE 57; RESP 16; TEMP 36.5; O2SAT 97; BMI 35.2
--- NOTE | 2024-01-25 18:37 | ED_ITS ---
Discharge Plan Disposition Patient Disposition: Xfer Other Condition: Good Prescriptions Prescriptions: No Action sulfamethoxazole-trimethoprim [Bactrim DS] 800-160 mg tablet 1 tab PO BID 14 Days Qty: 28 0RF Metamucil 3.4 gram/5.4 gram powder 1 tbsp PO DAILY Qty: 660 11RF Rx Instructions: mix into at least 8 oz of water or juice before administering azithromycin 500 mg tablet See Rx Instructions PO .COMPLEX Qty: 3 0RF Rx Instructions: For 500 mg dose pack: take 500 mg once daily for 3 days PO gentamicin 0.1 % ointment 1 applic topical TID Qty: 30 1RF gabapentin 600 mg tablet 600 mg PO TID Patient Comments: TAKE ONE TABLET BY MOUTH THREE TIMES DAILY MAY CAUSE DROWSINESS donepezil 10 mg tablet 10 mg PO HS Patient Comments: TAKE ONE TABLET BY MOUTH EVERY DAY AT BEDTIME hydralazine 25 mg tablet 25 mg PO DAILY Patient Comments: TAKE ONE TABLET BY MOUTH THREE TIMES DAILY clopidogrel 75 mg tablet 75 mg PO DAILY Patient Comments: TAKE ONE TABLET BY MOUTH EVERY DAY amlodipine 10 mg tablet 10 mg PO DAILY Patient Comments: TAKE ONE TABLET BY MOUTH EVERY DAY trazodone 150 mg tablet 150 mg PO DAILY Patient Comments: TAKE ONE TABLET BY MOUTH EVERY DAY IN THE EVENING lisinopril 10 mg tablet 10 mg PO DAILY Patient Comments: TAKE ONE TABLET BY MOUTH EVERY DAY omeprazole 20 mg capsule,delayed release(DR/EC) 20 mg PO DAILY Patient Comments: TAKE ONE CAPSULE BY MOUTH EVERY DAY furosemide 20 mg tablet 20 mg PO DAILY Patient Comments: TAKE ONE TABLET BY MOUTH EVERY DAY metoprolol tartrate 25 mg tablet 25 mg PO BID Patient Comments: TAKE ONE TABLET BY MOUTH TWICE DAILY duloxetine 60 mg capsule,delayed release(DR/EC) 60 mg PO DAILY Patient Comments: TAKE ONE CAPSULE BY MOUTH EVERY DAY diclofenac sodium 3 % gel 1 applic topical BID Qty: 100 0RF tizanidine 4 mg tablet 4 mg PO Q8H PRN (Reason: muscle spasticity) Qty: 30 0RF mupirocin 2 % ointment 1 applic topical TID 7 Days Qty: 15 0RF doxycycline hyclate 100 mg capsule 100 mg PO Q12 10 Days Qty: 20 0RF Clinical Impressions Clinical Impression: Acute hyperkalemia, Metabolic acidosis Acute renal failure Qualifiers: Acute renal failure type: unspecified Qualified Code(s): N17.9 - Acute kidney failure, unspecified Stand Alone Forms Stand Alone Forms: Transfer Record - ED Print Language Print Language: Albanian Discharge ED Provider: Mayur Saunders General Adult HPI <Dipak Poe MD - Last Filed: 01/26/24 01:08> General Chief complaint: Weakness Stated complaint: weakness Time Seen by Provider: 01/25/24 18:37 History of Present Illness HPI narrative: Patient presents for evaluation of bilateral leg pain gradual in onset starting today associated with chronic bilateral lower extremity changes due to Charcot joint in the setting of poorly controlled type 2 diabetes and associated PAD. No injury. Exacerbating factors include ambulation. Associated symptoms include decreased p.o. intake. Denies any headache nausea vomiting changes in medications or new medications. Please note that above description of symptoms, in this electronic medical record under categorization of recalled from ER triage doctor by RN are reflective of an initial nursing assessment, however, is not reflective of my full history and physical exam that was personally taken and clarified. Consequentially, this preceding description of symptoms, which may include the patient's categorized chief complaint in the EMR, do not reflect my personal clinical impression, and the ultimate description of history of present illness and patient stated complaints should be deferred to this section of the note. Unless stated otherwise or congruent with this section of the note, additional signs, symptoms, or incongruence should be interpreted as inaccurate with my clinical impression. Related Data Home Medications ?Medication ?Instructions ?Recorded ?Confirmed amlodipine 10 mg tablet 10 mg PO DAILY 12/16/23 01/11/24 clopidogrel 75 mg tablet 75 mg PO DAILY 12/16/23 01/11/24 donepezil 10 mg tablet 10 mg PO HS 12/16/23 01/11/24 duloxetine 60 mg capsule,delayed 60 mg PO DAILY 12/16/23 01/11/24 release furosemide 20 mg tablet 20 mg PO DAILY 12/16/23 01/11/24 gabapentin 600 mg tablet 600 mg PO TID 12/16/23 01/11/24 hydralazine 25 mg tablet 25 mg PO DAILY 12/16/23 01/11/24 lisinopril 10 mg tablet 10 mg PO DAILY 12/16/23 01/11/24 metoprolol tartrate 25 mg tablet 25 mg PO BID 12/16/23 01/11/24 omeprazole 20 mg capsule,delayed 20 mg PO DAILY 12/16/23 01/11/24 release trazodone 150 mg tablet 150 mg PO DAILY 12/16/23 01/11/24 Previous Rx's ?Medication ?Instructions ?Recorded diclofenac sodium 3 % topical gel 1 applic topical BID #100 grams 12/16/23 tizanidine 4 mg tablet 4 mg PO Q8H PRN muscle spasticity 12/16/23 #30 tabs psyllium husk 3.4 gram/5.4 gram 1 tbsp PO DAILY #660 grams 12/19/23 oral powder (Metamucil) azithromycin 500 mg tablet See Rx Instructions PO .COMPLEX #3 12/21/23 tabs gentamicin 0.1 % topical ointment 1 applic topical TID Infection #30 01/01/24 grams doxycycline hyclate 100 mg capsule 100 mg PO Q12 10 days #20 caps 01/05/24 mupirocin 2 % topical ointment 1 applic topical TID 7 days #15 01/05/24 grams sulfamethoxazole 800 1 tab PO BID 14 days #28 tabs 01/15/24 mg-trimethoprim 160 mg tablet (Bactrim DS) Allergies Allergy/AdvReac Type Severity Reaction Status Date / Time Iodinated Contrast Media Allergy Intermediate Confusion Verified 01/11/24 16:27 red dye Allergy Verified 01/11/24 16:27 [facility] <Dipak Poe MD - Last Filed: 01/26/24 01:08> [facility] Disclaimer: The information contained in this section may have been updated after the patient was seen, as this information can be updated by other users. Medical History Hyperlipidemia HTN (hypertension), benign CKD (chronic kidney disease) stage 3, GFR 30-59 ml/min Colon perforation Renal failure Pneumoperitoneum Bowel perforation Amputation of toe of right foot Type 2 diabetes mellitus Diabetic foot Surgical History History of cardiac cath Hx of tonsillectomy History of bowel resection Family History Other Unknown family medical history Social History (Updated 12/29/23 @ 14:17 by Alaina Land APRN) Smoking Status: Current every day smoker alcohol intake: never substance use type: denies use current occupational status: disabled Travel in the last 8 weeks: None Have you lived/traveled outside [place] in past 30 days?: No Contact w/someone who lives/traveled outside US past 30 days?: No Exposure to someone with infectious disease in past 14 days?: No Do you have a fever (greater than 100.4 F or 38 C)?: No Have you tested positive for COVID-19: No Exposed to someone with COVID-19 in past 14 days?: No Do you have a sore throat?: No Do you have a cough?: No Do you have any weakness?: Yes Do you have any diarrhea?: No Are you experiencing any unusual bleeding?: No Do you have any muscle aches/pain?: No Do you have any abdominal pain?: No Are you experiencing loss of taste or smell?: No Other Medical History Have you received the Flu Vaccine for this season: Yes Have you received the Pneumonia Vaccine: No <Dipak Poe MD - Last Filed: 01/26/24 01:08> ROS Obtained: Yes other As per HPI Physical Exam <Dipak Poe MD - Last Filed: 01/26/24 01:08> General General appearance: alert and in no apparent distress Head Head exam: atraumatic and normocephalic Eye Eye exam: Present normal appearance Neck Neck exam: Present normal inspection Chest Chest inspection: Present normal inspection and symmetric chest wall rise Respiratory Respiratory exam: Present normal lung sounds bilaterally; Absent respiratory distress Cardiovascular Cardiovascular exam: Present regular rate and normal rhythm Abdominal Exam Abdominal exam: Present soft Neurological Exam Neurological exam: Present alert and oriented X3 Psychiatric Psychiatric exam: Present normal affect and normal mood Skin Skin exam: Present warm and dry Other Other exam information: Bilateral lower extremities with findings consistent with chronic PID, ulcerative lesions which patient reports are chronic in nature. Capillary refill within normal limits. Pulses dopplerable Medical Decision Making <Dipak Poe MD - Last Filed: 01/26/24 01:08> Medical Records Medical records reviewed: Yes I reviewed the patient's medical records. Screening: Per USPSTF and CDC recommendations, given the prevalence of disease in our region, it is our hospital?s policy to screen for HIV and viral Hepatitis for all patients aged 18 and over and those with ongoing risk factors. Mick Inquiry Pt receiving controlled substance: No Vital Signs: 01/25/24 18:12 01/25/24 18:45 01/26/24 01:40 Temperature 97.7 F 97.6 F Temperature Source Oral Oral Pulse Rate 55 L 74 Pulse Rate [Right] 57 L Respiratory Rate 16 18 Blood Pressure 148/78 H 179/83 H Blood Pressure [Right Arm] 148/78 H Blood Pressure Mean [Right Arm] 101 Blood Pressure Source Automatic Cuff Blood Pressure Source [Right Arm] Automatic Cuff Blood Pressure Position Supine Blood Pressure Position [Right Arm] Supine 02 Sat by Pulse Oximetry 97 96 Oxygen Delivery Method Room Air Room Air Lab Data Lab Results 01/25/24 18:40: WBC 7.5, RBC 4.75, Hgb 14.3, Hct 46.1, MCV 97.1 H, MCH 30.1, M CHC 31.0 L, RDW 15.2, Plt Count 259, MPV 10.0, Neut % (Auto) 84.7 H, Lymph % (Auto) 7.0 L, [place] % (Auto) 5.9, Eos % (Auto) 1.5, Baso % (Auto) 0.5, Neut # (Auto) 6.4, Lymph # (Auto) 0.5 L, [place] # (Auto) 0.4, Eos # (Auto) 0.1, Baso # (Auto) 0.0 01/25/24 20:58: Lactate 0.9 01/25/24 21:24: Sodium 131 L, Potassium 9.3 H*, Chloride 112 H, Carbon Dioxide 19 L, Anion Gap 9.3, BUN 35 H, Creatinine 2.60 H, Estimated Creat Clear 47, E stimated GFR 25 L, Est GFR ( Amer) 30 L, Glucose 82, Calcium 9.5, Total Bilirubin 0.5, AST 46, ALT 22, Alkaline Phosphatase 98, Total Creatine Kinase 51 L, Total Protein 8.8 H, Albumin 4.3, Globulin 4.5 H, Albumin/Globulin Ratio 1.0 L 01/25/24 21:37: Potassium 9.5 H*, Magnesium 1.9 01/25/24 21:38: VBG pH 7.22 L, VBG pCO2 42.2, VBG pO2 38.4, VBG HCO3 16.9 L, VBG Total CO2 18.2 L, VBG O2 Saturation 69.1, VBG Base Excess -10.8 L, VBG Lactic Acid 1.4 01/26/24 00:28: Potassium 7.6 H* 01/26/24 01:02: Urine Color Yellow, Urine Appearance Clear, Urine pH 6.0, Ur Specific [place] 1.025, Urine Protein 1+ A, Urine Glucose (UA) Negative, Urine Ketones Trace, Urine Blood Negative, Urine Nitrate Negative, Urine Bilirubin Negative, Urine Urobilinogen 0.2, Ur Leukocyte Esterase Negative, Urine WBC 3-5, Ur Squamous Epith Cells 5-10, Urine Bacteria 1+, Hyaline Casts 3-5, Urine Mucus 1+ 01/25/24 18:40 01/26/24 00:28 Orders (Tests/Meds): ED MEDICATIONS Discontinued Medications Generic Name Dose Route Start Last Admin Trade Name Freq PRN Reason Stop Dose Admin Albuterol Sulfate 7.5 mg 01/25/24 23:15 01/25/24 23:48 Albuterol 0.083% 2.5 Mg/3 Ml Neb IH 01/25/24 23:16 7.5 mg ONCE ONE Administration Dextrose 25 ml 01/25/24 22:02 01/25/24 22:13 Dextrose 50% 50ml Syringe (Crash Cart) IVP 01/25/24 22:03 25 ml ONCE ONE Administration Fentanyl Citrate 50 mcg 01/26/24 00:45 01/26/24 00:46 Fentanyl 100mcg/2ml Vial IV 01/26/24 00:46 50 mcg ONCE ONE Administration Calcium Gluconate/Sodium Chloride 1 gm in 50 mls @ 50 mls/hr 01/25/24 22:03 01/25/24 22:12 Calcium Gluconate 1,000mg/50ml Nacl Premix IV 01/25/24 23:02 50 mls/hr ONCE ONE Administration Sodium Chloride 1,000 mls @ 999 mls/hr 01/25/24 22:08 01/25/24 22:13 Sod Chlor 0.9% 1000ml Bag IV 01/25/24 23:08 999 mls/hr .Q1H1M ONE Administration Calcium Gluconate/Sodium Chloride 1 gm in 50 mls @ 50 mls/hr 01/25/24 23:26 01/25/24 23:48 Calcium Gluconate 1,000mg/50ml Nacl Premix IV 01/26/24 00:25 50 mls/hr ONCE ONE Administration Insulin Human Regular 5 unit 01/25/24 22:02 01/25/24 22:13 Insulin Human Regular 100 Units/Ml 10ml Vial IVP 01/25/24 22:03 5 unit ONCE ONE Administration Sodium Bicarbonate 50 meq 01/25/24 22:02 01/25/24 22:12 Sodium Bicarb 8.4% 50ml Syringe (Crash Cart) IV 01/25/24 22:03 50 meq ONCE ONE Administration ORDERS Category Date Time Status XR chest portable Stat Exams 01/26/24 01:08 Completed CBC w/Auto Diff [Complete Blood Count Auto Diff] Stat Lab 01/25/24 18:40 Completed CK [Creatine Kinase] Stat Lab 01/25/24 21:24 Completed CMP [Comprehensive Metabolic Panel] Stat Lab 01/25/24 21:24 Completed Lactic Acid Stat Lab 01/25/24 20:58 Completed MAG [Magnesium] Stat Lab 01/25/24 21:37 Completed Potassium Routine Lab 01/26/24 00:28 Completed Potassium Stat Lab 01/25/24 21:37 Completed Urinalysis and Microscopic Stat Lab 01/26/24 01:02 Completed VBG [Venous Blood Gas] Stat RT 01/25/24 21:38 Completed Medical Decision Narrative: Patient with history and exam per above presenting for evaluation of generalized weakness Diagnoses considered include leg claudication, electrolyte abnormality, MARYURI, among others ED workup and treatment included: ED MEDICATIONS Discontinued Medications Generic Name Dose Route Start Last Admin Trade Name Freq PRN Reason Stop Dose Admin Albuterol Sulfate 7.5 mg 01/25/24 23:15 01/25/24 23:48 Albuterol 0.083% 2.5 Mg/3 Ml Neb IH 01/25/24 23:16 7.5 mg ONCE ONE Administration Dextrose 25 ml 01/25/24 22:02 01/25/24 22:13 Dextrose 50% 50ml Syringe (Crash Cart) IVP 01/25/24 22:03 25 ml ONCE ONE Administration Fentanyl Citrate 50 mcg 01/26/24 00:45 01/26/24 00:46 Fentanyl 100mcg/2ml Vial IV 01/26/24 00:46 50 mcg ONCE ONE Administration Calcium Gluconate/Sodium Chloride 1 gm in 50 mls @ 50 mls/hr 01/25/24 22:03 01/25/24 22:12 Calcium Gluconate 1,000mg/50ml Nacl Premix IV 01/25/24 23:02 50 mls/hr ONCE ONE Administration Sodium Chloride 1,000 mls @ 999 mls/hr 01/25/24 22:08 01/25/24 22:13 Sod Chlor 0.9% 1000ml Bag IV 01/25/24 23:08 999 mls/hr .Q1H1M ONE Administration Calcium Gluconate/Sodium Chloride 1 gm in 50 mls @ 50 mls/hr 01/25/24 23:26 01/25/24 23:48 Calcium Gluconate 1,000mg/50ml Nacl Premix IV 01/26/24 00:25 50 mls/hr ONCE ONE Administration Insulin Human Regular 5 unit 01/25/24 22:02 01/25/24 22:13 Insulin Human Regular 100 Units/Ml 10ml Vial IVP 01/25/24 22:03 5 unit ONCE ONE Administration Sodium Bicarbonate 50 meq 01/25/24 22:02 01/25/24 22:12 Sodium Bicarb 8.4% 50ml Syringe (Crash Cart) IV 01/25/24 22:03 50 meq ONCE ONE Administration ORDERS Category Date Time Status CBC w/Auto Diff [Complete Blood Count Auto Diff] Stat Lab 01/25/24 18:40 Completed CK [Creatine Kinase] Stat Lab 01/25/24 21:24 Completed CMP [Comprehensive Metabolic Panel] Stat Lab 01/25/24 21:24 Completed Lactic Acid Stat Lab 01/25/24 20:58 Completed MAG [Magnesium] Stat Lab 01/25/24 21:37 Completed Potassium Stat Lab 01/25/24 21:37 Completed Urinalysis and Microscopic Stat Lab 01/25/24 21:19 Ordered VBG [Venous Blood Gas] Stat RT 01/25/24 21:38 Completed Labs were independently interpreted by me, significant for marked hyperkalemia, acute kidney injury, acidosis, Patient was treated with multimodal medical management of hyperkalemia. Central line placed for consideration of emergent dialysis. Disposition pending at this time. Care transferred to incoming physician <Mayur Saunders MD - Last Filed: 01/26/24 04:03> Vital Signs: 01/25/24 18:12 01/25/24 18:45 01/26/24 01:40 Temperature 97.7 F 97.6 F Temperature Source Oral Oral Pulse Rate 55 L 74 Pulse Rate [Right] 57 L Respiratory Rate 16 18 Blood Pressure 148/78 H 179/83 H Blood Pressure [Right Arm] 148/78 H Blood Pressure Mean [Right Arm] 101 Blood Pressure Source Automatic Cuff Blood Pressure Source [Right Arm] Automatic Cuff Blood Pressure Position Supine Blood Pressure Position [Right Arm] Supine 02 Sat by Pulse Oximetry 97 96 Oxygen Delivery Method Room Air Room Air Lab Data Lab Results 01/25/24 18:40: WBC 7.5, RBC 4.75, Hgb 14.3, Hct 46.1, MCV 97.1 H, MCH 30.1, M CHC 31.0 L, RDW 15.2, Plt Count 259, MPV 10.0, Neut % (Auto) 84.7 H, Lymph % (Auto) 7.0 L, [place] % (Auto) 5.9, Eos % (Auto) 1.5, Baso % (Auto) 0.5, Neut # (Auto) 6.4, Lymph # (Auto) 0.5 L, [place] # (Auto) 0.4, Eos # (Auto) 0.1, Baso # (Auto) 0.0 01/25/24 20:58: Lactate 0.9 01/25/24 21:24: Sodium 131 L, Potassium 9.3 H*, Chloride 112 H, Carbon Dioxide 19 L, Anion Gap 9.3, BUN 35 H, Creatinine 2.60 H, Estimated Creat Clear 47, E stimated GFR 25 L, Est GFR ( Amer) 30 L, Glucose 82, Calcium 9.5, Total Bilirubin 0.5, AST 46, ALT 22, Alkaline Phosphatase 98, Total Creatine Kinase 51 L, Total Protein 8.8 H, Albumin 4.3, Globulin 4.5 H, Albumin/Globulin Ratio 1.0 L 01/25/24 21:37: Potassium 9.5 H*, Magnesium 1.9 01/25/24 21:38: VBG pH 7.22 L, VBG pCO2 42.2, VBG pO2 38.4, VBG HCO3 16.9 L, VBG Total CO2 18.2 L, VBG O2 Saturation 69.1, VBG Base Excess -10.8 L, VBG Lactic Acid 1.4 01/26/24 00:28: Potassium 7.6 H* 01/26/24 01:02: Urine Color Yellow, Urine Appearance Clear, Urine pH 6.0, Ur Specific [place] 1.025, Urine Protein 1+ A, Urine Glucose (UA) Negative, Urine Ketones Trace, Urine Blood Negative, Urine Nitrate Negative, Urine Bilirubin Negative, Urine Urobilinogen 0.2, Ur Leukocyte Esterase Negative, Urine WBC 3-5, Ur Squamous Epith Cells 5-10, Urine Bacteria 1+, Hyaline Casts 3-5, Urine Mucus 1+ Orders (Tests/Meds): ED MEDICATIONS Discontinued Medications Generic Name Dose Route Start Last Admin Trade Name Ramírezq PRN Reason Stop Dose Admin Albuterol Sulfate 7.5 mg 01/25/24 23:15 01/25/24 23:48 Albuterol 0.083% 2.5 Mg/3 Ml Neb IH 01/25/24 23:16 7.5 mg ONCE ONE Administration Dextrose 25 ml 01/25/24 22:02 01/25/24 22:13 Dextrose 50% 50ml Syringe (Crash Cart) IVP 01/25/24 22:03 25 ml ONCE ONE Administration Fentanyl Citrate 50 mcg 01/26/24 00:45 01/26/24 00:46 Fentanyl 100mcg/2ml Vial IV 01/26/24 00:46 50 mcg ONCE ONE Administration Calcium Gluconate/Sodium Chloride 1 gm in 50 mls @ 50 mls/hr 01/25/24 22:03 01/25/24 22:12 Calcium Gluconate 1,000mg/50ml Nacl Premix IV 01/25/24 23:02 50 mls/hr ONCE ONE Administration Sodium Chloride 1,000 mls @ 999 mls/hr 01/25/24 22:08 01/25/24 22:13 Sod Chlor 0.9% 1000ml Bag IV 01/25/24 23:08 999 mls/hr .Q1H1M ONE Administration Calcium Gluconate/Sodium Chloride 1 gm in 50 mls @ 50 mls/hr 01/25/24 23:26 01/25/24 23:48 Calcium Gluconate 1,000mg/50ml Nacl Premix IV 01/26/24 00:25 50 mls/hr ONCE ONE Administration Insulin Human Regular 5 unit 01/25/24 22:02 01/25/24 22:13 Insulin Human Regular 100 Units/Ml 10ml Vial IVP 01/25/24 22:03 5 unit ONCE ONE Administration Sodium Bicarbonate 50 meq 01/25/24 22:02 01/25/24 22:12 Sodium Bicarb 8.4% 50ml Syringe (Crash Cart) IV 01/25/24 22:03 50 meq ONCE ONE Administration ORDERS Category Date Time Status XR chest portable Stat Exams 01/26/24 01:08 Completed CBC w/Auto Diff [Complete Blood Count Auto Diff] Stat Lab 01/25/24 18:40 Completed CK [Creatine Kinase] Stat Lab 01/25/24 21:24 Completed CMP [Comprehensive Metabolic Panel] Stat Lab 01/25/24 21:24 Completed Lactic Acid Stat Lab 01/25/24 20:58 Completed MAG [Magnesium] Stat Lab 01/25/24 21:37 Completed Potassium Routine Lab 01/26/24 00:28 Completed Potassium Stat Lab 01/25/24 21:37 Completed Urinalysis and Microscopic Stat Lab 01/26/24 01:02 Completed VBG [Venous Blood Gas] Stat RT 01/25/24 21:38 Completed ECG Data Tracing #1: I reviewed this ECG and interpreted as documented below: Sinus rhythm with first-degree AV block, left bundle branch block noted, bradycardic rate with rate of 52. Consistent with severe hyperkalemia. ECG initial impression date: 01/25/24 ECG initial impression time: 23:00 Medical Decision Narrative: Patient with history and exam per above presenting for evaluation of generalized weakness Diagnoses considered include leg claudication, electrolyte abnormality, MARYURI, among others ED workup and treatment included: ED MEDICATIONS Discontinued Medications Generic Name Dose Route Start Last Admin Trade Name Freq PRN Reason Stop Dose Admin Albuterol Sulfate 7.5 mg 01/25/24 23:15 01/25/24 23:48 Albuterol 0.083% 2.5 Mg/3 Ml Neb IH 01/25/24 23:16 7.5 mg ONCE ONE Administration Dextrose 25 ml 01/25/24 22:02 01/25/24 22:13 Dextrose 50% 50ml Syringe (Crash Cart) IVP 01/25/24 22:03 25 ml ONCE ONE Administration Fentanyl Citrate 50 mcg 01/26/24 00:45 01/26/24 00:46 Fentanyl 100mcg/2ml Vial IV 01/26/24 00:46 50 mcg ONCE ONE Administration Calcium Gluconate/Sodium Chloride 1 gm in 50 mls @ 50 mls/hr 01/25/24 22:03 01/25/24 22:12 Calcium Gluconate 1,000mg/50ml Nacl Premix IV 01/25/24 23:02 50 mls/hr ONCE ONE Administration Sodium Chloride 1,000 mls @ 999 mls/hr 01/25/24 22:08 01/25/24 22:13 Sod Chlor 0.9% 1000ml Bag IV 01/25/24 23:08 999 mls/hr .Q1H1M ONE Administration Calcium Gluconate/Sodium Chloride 1 gm in 50 mls @ 50 mls/hr 01/25/24 23:26 01/25/24 23:48 Calcium Gluconate 1,000mg/50ml Nacl Premix IV 01/26/24 00:25 50 mls/hr ONCE ONE Administration Insulin Human Regular 5 unit 01/25/24 22:02 01/25/24 22:13 Insulin Human Regular 100 Units/Ml 10ml Vial IVP 01/25/24 22:03 5 unit ONCE ONE Administration Sodium Bicarbonate 50 meq 01/25/24 22:02 01/25/24 22:12 Sodium Bicarb 8.4% 50ml Syringe (Crash Cart) IV 01/25/24 22:03 50 meq ONCE ONE Administration ORDERS Category Date Time Status CBC w/Auto Diff [Complete Blood Count Auto Diff] Stat Lab 01/25/24 18:40 Completed CK [Creatine Kinase] Stat Lab 01/25/24 21:24 Completed CMP [Comprehensive Metabolic Panel] Stat Lab 01/25/24 21:24 Completed Lactic Acid Stat Lab 01/25/24 20:58 Completed MAG [Magnesium] Stat Lab 01/25/24 21:37 Completed Potassium Stat Lab 01/25/24 21:37 Completed Urinalysis and Microscopic Stat Lab 01/25/24 21:19 Ordered VBG [Venous Blood Gas] Stat RT 01/25/24 21:38 Completed Labs were independently interpreted by me, significant for marked hyperkalemia, acute kidney injury, acidosis, Patient was treated with multimodal medical management of hyperkalemia. Central line placed for consideration of emergent dialysis. Disposition pending at this time. Care transferred to incoming physician. I took over care from Dr. Poe at approximately 12:45 AM. The story that I got is that the patient is a poorly controlled type II diabetic, ill at baseline, nonambulatory. He came in covered in feces and bedbugs. His caregiver is his who was also sick and being admitted for MARYURI. He came in for leg pain. His labs showed MARYURI with creatinine 2.6, unknown baseline. pH 7.2 with metabolic acidosis. Potassium of 9.3. Confirmed on multiple rechecks to be in the range of 9.3-9.5. He was given calcium insulin glucose dextrose albuterol and bicarb by the previous provider. His EKG is consistent with severe hyperkalemia. We still do not have urine output from him, multiple attempts were made to place a [place] without success. Patient is hypertensive but otherwise stable from a vital sign standpoint. Multiple attempts were made at transfer to [facility]. Patient was ultimately accepted by the [facility]. A right IJ triple-lumen was placed by the previous provider. We do not have any trialysis lines available in our hospital because our hospital does not perform dialysis. Procedures <Dipak Poe MD - Last Filed: 01/26/24 01:08> Central Line Placement Right IJ: Time Out Performed: Yes Patient Placed on Monitor/Pulse Ox: Yes Prep: mask, gown and gloves Central Line Prep: Chlorhexidine scrub Local Anesthetic: lidocaine 1% Amount of anesthesia used (mL): 10 Ultrasound Used for Placement: Yes Central Line Lumen Inserted: triple Post Procedure: sutured in place Patient Tolerated Procedure: well Critical Care <Dipak Poe MD - Last Filed: 01/26/24 01:08> Critical Care Time Critical Care Time: No <Mayur Saunders MD - Last Filed: 01/26/24 04:03> Critical Care Time Critical Care Time: Yes Attestation: On 01/25/24, the high probability of a clinically significant, sudden or life threatening deterioration of the following system(s) required my full and direct attention, intervention and personal management. The time I documented below is in addition to time spent performing reported procedures but includes the following listed in this critical care notation. Total Time Total Critical Care Time: 70
[2024-01-25 18:45] VITALS: BP 148/78; PULSE 55; O2SAT 96
[2024-01-25 21:10] LABS: Hematocrit 46.1 % (42.0-52.0); Hemoglobin 14.3 g/dL (14.1-18.0); Mean Corpuscular Hemoglobin 30.1 pg (27.0-31.2); Red Blood Count 4.75 M/mm3 (4.60-6.20); White Blood Count 7.5 K/mm3 (4.8-10.8)
[2024-01-25 21:11] LABS: Albumin Level 4.3 g/dl (3.5-5.0); Chloride 112 mmol/L (98-107); Sodium 131 mmol/L (136-145)
[2024-01-25 21:11] LABS: Basophils % 0.5 % (0.1-2.0); Eosinophils # 0.1 K/mm3 (0.0-0.4); Eosinophils % 1.5 % (0.1-12.0); Lymphocytes # 0.5 K/mm3 (0.7-4.5); Mean Corpuscular Volume 97.1 fl (80-94); Monocytes # 0.4 K/mm3 (0.1-1.0); Monocytes % 5.9 % (1.7-9.3); Neutrophils # 6.4 K/mm3 (1.8-7.8); Neutrophils % 84.7 % (37.0-80.0); Platelet Count 259 K/mm3 (142-424); Red Cell Distribution Width 15.2 % (11.5-17.5)
[2024-01-25 21:13] LABS: Alanine Aminotransferase 22 U/L (12-78); Aspartate Amino Transferase 46 U/L (17-59); Blood Urea Nitrogen 35 mg/dl (9-20); Carbon Dioxide 19 mmol/L (22.0-30.0); Creatinine Clearance Estimated 47 mL/min (50-200); Estimated Glomerular Filt Rate 25 ml/min (>60); GFR (African American) 30 ML/MIN (>60)
[2024-01-25 21:14] LABS: Alkaline Phosphatase 98 U/L (38-126); Bilirubin,Total 0.5 mg/dl (0.2-1.3); Calcium 9.5 mg/dl (8.4-10.2); Creatine Kinase 51 U/L (55-170); Globulin 4.5 g/dL (1.3-3.2); Glucose 82 mg/dl (74-100); Total Protein,Serum 8.8 g/dl (6.3-8.2)
[2024-01-25 21:16] LABS: Anion Gap 9.3 mEq/L (5-15); Potassium 9.3 mmoL/L (3.5-5.1)
[2024-01-25 21:38] LABS: Lactic Acid 0.9 mmol/L (0.7-2.1)
--- NOTE | 2024-01-25 21:51 | ECG_ITS ---
APPROVED REPORT Exam: Resting ECG HR:52 bpm ECG Measurements Heart Rate 52 AXES SD 299 P 31 QRSd 229 QRS 25 QT 509 T 29 QTc 490 Conclusion SINUS BRADYCARDIA WITH FIRST DEGREE AV BLOCK LEFT BUNDLE BRANCH BLOCK [120+ ms QRS DURATION, 80+ ms Q/S IN V1/V2, 85+ ms R IN I/aVL/V5/V6] ABNORMAL ECG UNCONFIRMED REPORT Electronically signed by : JEOVANNY CHOWDHURY, 01/26/2024 06:49:27
[2024-01-25 21:57] LABS: Lactate Venous 1.4 mmol/L (0.4-2.0); VBG Base Excess -10.8 mmol/L (-2.4-2.3); VBG HCO3 16.9 mmol/L (23-30); VBG Oxygen Saturation 69.1 % (50-70); VBG PCO2 42.2 mmol/L (35-51); VBG PH 7.22 mmol/L (7.31-7.41); VBG PO2 38.4 mmol/L (28-40); VBG Total CO2 18.2 mmol/L (23-27)
[2024-01-25 22:10] LABS: Magnesium 1.9 mg/dl (1.6-2.3)
[2024-01-25] MEDS: SODIUM BICARB 8.4% 50ML SYRINGE (CRASH CART) 50 MEQ IV (22:12)
[2024-01-25] MEDS: CALCIUM GLUC IN NACL, ISO-OSM 1 GM/50 ML BAG IV ×2 (22:12→23:48)
[2024-01-25] MEDS: DEXTROSE 50% 50ML SYRINGE (CRASH CART) 25 ML IVP (22:13)
[2024-01-25] MEDS: INSULIN HUMAN REGULAR 100 UNITS/ML 10ML VIAL 5 UNIT IVP (22:13)
[2024-01-25] MEDS: 0.9 % SODIUM CHLORIDE 1000ML 1,000 ML 999 ML IV (22:13)
--- NOTE | 2024-01-25 22:59 | PC.NURSE ---
Called [facility] at 10:45 in regard for an emergent transfer, waiting to hear back
[2024-01-25 23:24] LABS: Potassium 9.5 mmoL/L (3.5-5.1)
[2024-01-25] MEDS: ALBUTEROL 0.083% 2.5 MG/3 ML NEB 7.5 MG IH (23:48)
[2024-01-26] MEDS: FENTANYL 100MCG/2ML VIAL 50 MCG IV (00:46)
--- NOTE | 2024-01-26 00:55 | PC.NURSE ---
Called for pt transfer at 00:33
--- NOTE | 2024-01-26 00:55 | PC.NURSE ---
Called [facility] in regard of pt transfer at 00:16
--- NOTE | 2024-01-26 01:08 | XR_ITS ---
PROCEDURE INFORMATION: Exam: XR Chest Exam date and time: 01/26/2024 1:10 AM Age: 68 years old Clinical indication: Device placement; Other: Central line placement; Additional info: Post central line TECHNIQUE: Imaging protocol: Radiologic exam of the chest. Views: 1 view. COMPARISON: CT CHEST WO CON 07/07/2021 3:17 PM FINDINGS: Tubes, catheters and devices: The patient is rotated. There has a right internal jugular catheter with tip in the SVC. Lungs: Unremarkable. No consolidation. Pleural spaces: Unremarkable. No pleural effusion. No pneumothorax. Heart/Mediastinum: Unremarkable. No cardiomegaly. Bones/joints: Unremarkable. IMPRESSION: R IJ catheter in satisfactory position. No acute disease.
[2024-01-26 01:20] LABS: Microscopic, Urine URINE MICROSCOPIC (MICROSCOPIC)
[2024-01-26 01:24] LABS: Appearance,Urine CLEAR (Clear); Bilirubin,Urine Negative (Negative); Blood, Urine Negative (Negative); Color,Urine YELLOW (Yellow); Glucose,Urine (UA) Negative (Negative); Ketones,Urine TRACE (Negative); Leukocyte Esterase,Urine Negative (Negative); Nitrate,Urine Negative (Negative); Protein,Urine 1+ (Negative); Specific Gravity, Urine 1.025 (1.005-1.030); Urobilinogen,Urine 0.2 EU/dl (0.2)
[2024-01-26 01:40] VITALS: BP 179/83; PULSE 74; RESP 18; TEMP 36.4; O2SAT 97
[2024-01-26 01:50] LABS: Bacteria,Urine 1+ /lpf; Mucus,Urine 1+ /lpf
[2024-01-26 02:10] LABS: Potassium 7.6 mmoL/L (3.5-5.1)
--- NOTE | 2024-01-26 02:13 | PC.NURSE ---
Repeat K on this pt of 7.6, called and notified the nurse that will be taking care of this pt at [facility]
== END 2024-01-26 01:47 | disposition other institution (70) ==
PROVIDERS: Emergency Medicine; Emergency Provider Emergency Medicine; PCP Internal Medicine Adolescent Medicine
DX: E87.20 Acidosis, unspecified (principal); E87.5 Hyperkalemia; N17.9 Acute kidney failure, unspecified; R53.1 Weakness; M79.604 Pain in right leg; M79.605 Pain in left leg; M14.60 Charcot's joint, unspecified site
CPT/HCPCS: 71045; 80053; 81001; 82550; 82803; 83605; 83735; 84132; 85025; 93005; 96361; 96374; 99291; J3010; J7030; J7613

== ENCOUNTER 2024-02-06 09:05 | Outpatient (CLI) | payer MEDICARE, MEDICAID, SELFPAY ==
[2024-02-06 09:32] LABS: Basophils % 0.4 % (0.1-2.0); Eosinophils # 0.4 K/mm3 (0.0-0.4); Eosinophils % 4.7 % (0.1-12.0); Hematocrit 37.4 % (42.0-52.0); Hemoglobin 11.7 g/dL (14.1-18.0); Lymphocytes # 0.9 K/mm3 (0.7-4.5); Lymphocytes % 10.2 % (10-50); Mean Corpuscular HGB Conc 31.3 g/dL (31.8-35.4); Mean Corpuscular Hemoglobin 30.4 pg (27.0-31.2); Mean Corpuscular Volume 97.1 fl (80-94); Mean Platelet Volume 9.5 fl (7.4-10.4); Monocytes # 0.8 K/mm3 (0.1-1.0); Monocytes % 8.9 % (1.7-9.3); Neutrophils # 6.9 K/mm3 (1.8-7.8); Neutrophils % 75.1 % (37.0-80.0); Platelet Count 273 K/mm3 (142-424); Red Blood Count 3.85 M/mm3 (4.60-6.20); Red Cell Distribution Width 14.8 % (11.5-17.5); White Blood Count 9.2 K/mm3 (4.8-10.8)
[2024-02-06 10:53] LABS: Chloride 106 mmol/L (98-107); Sodium 137 mmol/L (136-145)
[2024-02-06 10:54] LABS: Potassium 5.4 mmoL/L (3.5-5.1)
[2024-02-06 10:56] LABS: Blood Urea Nitrogen 25 mg/dl (9-20); Estimated Glomerular Filt Rate 51 ml/min (>60); GFR (African American) 61 ML/MIN (>60)
[2024-02-06 10:57] LABS: Anion Gap 9.4 mEq/L (5-15); Calcium 9.3 mg/dl (8.4-10.2); Carbon Dioxide 27 mmol/L (22.0-30.0); Glucose 108 mg/dl (74-100)
== END 2024-02-06 23:59 | disposition home or self-care (01) ==
LOC: LAB 09:06
PROVIDERS: PCP Internal Medicine Adolescent Medicine; Visit Provider Internal Medicine Adolescent Medicine
DX: E87.5 Hyperkalemia (principal); I12.9 Hypertensive chronic kidney disease with stage 1 through stage 4 chronic kidney disease, or unspecified chronic kidney disease; N18.32 Chronic kidney disease, stage 3b; F17.200 Nicotine dependence, unspecified, uncomplicated
CPT/HCPCS: 36415; 80048; 85025

== ENCOUNTER 2024-02-09 09:40 | Outpatient (CLI) | payer MEDICARE, MEDICAID, SELFPAY ==
--- NOTE | 2024-02-09 09:47 | XR_ITS ---
FINAL REPORT CLINICAL HISTORY: ankle pain COMPARISON: None FINDINGS: AP, oblique, and lateral views of the right ankle were obtained. There is no acute fracture or dislocation. There is degenerative joint disease. Soft tissues are unremarkable. IMPRESSION: Degenerative joint disease without acute osseous abnormality of the right ankle. Reviewed, Interpreted and Dictated by Cassy Turner MD Transcribed by Viji Morgan Authenticated and [facility]
--- NOTE | 2024-02-09 09:47 | XR_ITS ---
FINAL REPORT CLINICAL HISTORY: foot pain COMPARISON: 09/29/2023 FINDINGS: AP, oblique and lateral views of the right foot were obtained. There are postoperative changes from amputation of the fourth and fifth digits at the bases of the metatarsals. There is no acute fracture. There is degenerative joint disease at the midfoot with collapse of the midfoot arch. These findings are stable and likely related to neuropathic joint. There is a chronic fracture deformity of the first proximal phalanx, which is unchanged. Soft tissues are unremarkable. 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 Reviewed, Interpreted and Dictated by Cassy Turner MD Transcribed by Viji Morgan Authenticated and . [facility]
--- NOTE | 2024-02-09 09:47 | XR_ITS ---
FINAL REPORT CLINICAL HISTORY: ankle pain COMPARISON: 03/17/2023 FINDINGS: AP, oblique, and lateral views of the left ankle were obtained. There is no osseous abnormality. There is degenerative joint disease. Soft tissues are unremarkable. IMPRESSION: Degenerative joint disease without acute osseous abnormality of the left ankle. Reviewed, Interpreted and Dictated by Cassy Turner MD Transcribed by Viji Morgan Authenticated and [facility]
--- NOTE | 2024-02-09 09:47 | XR_ITS ---
FINAL REPORT CLINICAL HISTORY: foot pain COMPARISON: 09/29/2023 FINDINGS: AP, oblique and lateral views of the left foot were obtained. There has been amputation of the second toe at the base of the proximal phalanx, which is unchanged. There is no acute fracture or dislocation. Mild multijoint degenerative disease is stable. Soft tissues are unremarkable. IMPRESSION: Postoperative and degenerative changes without acute abnormality. Reviewed, Interpreted and Dictated by Cassy Turner MD Transcribed by Viji Morgan Authenticated and [facility]
[2024-02-09 10:44] LABS: Basophils % 0.2 % (0.1-2.0); Eosinophils # 0.4 K/mm3 (0.0-0.4); Eosinophils % 3.1 % (0.1-12.0); Hematocrit 37.3 % (42.0-52.0); Hemoglobin 11.7 g/dL (14.1-18.0); Lymphocytes # 0.7 K/mm3 (0.7-4.5); Mean Corpuscular HGB Conc 31.4 g/dL (31.8-35.4); Mean Corpuscular Hemoglobin 30.2 pg (27.0-31.2); Mean Corpuscular Volume 96.1 fl (80-94); Mean Platelet Volume 9.7 fl (7.4-10.4); Monocytes # 0.8 K/mm3 (0.1-1.0); Monocytes % 6.8 % (1.7-9.3); Neutrophils # 10.3 K/mm3 (1.8-7.8); Neutrophils % 83.5 % (37.0-80.0); Platelet Count 274 K/mm3 (142-424); Red Blood Count 3.88 M/mm3 (4.60-6.20); Red Cell Distribution Width 15.1 % (11.5-17.5); White Blood Count 12.4 K/mm3 (4.8-10.8)
[2024-02-09 11:26] LABS: Alanine Aminotransferase 17 U/L (12-78); Albumin Level 3.7 g/dl (3.5-5.0); Albumin/Globulin Ratio 1.1 (1.1-1.8); Alkaline Phosphatase 89 U/L (38-126); Anion Gap 10.3 mEq/L (5-15); Aspartate Amino Transferase 24 U/L (17-59); Bilirubin,Total 0.4 mg/dl (0.2-1.3); Blood Urea Nitrogen 21 mg/dl (9-20); Calcium 9.6 mg/dl (8.4-10.2); Carbon Dioxide 27 mmol/L (22.0-30.0); Chloride 105 mmol/L (98-107); Estimated Glomerular Filt Rate 41 ml/min (>60); GFR (African American) 49 ML/MIN (>60); Globulin 3.4 g/dL (1.3-3.2); Glucose 101 mg/dl (74-100); Potassium 5.3 mmoL/L (3.5-5.1); Sodium 137 mmol/L (136-145); Total Protein,Serum 7.1 g/dl (6.3-8.2)
[2024-02-09 11:38] LABS: C-Reactive Protein 67.7 mg/L (0-4)
[2024-02-09 11:46] LABS: Erythrocyte Sedimentation Rate 91 mm/hr (0-20)
== END 2024-02-09 23:59 | disposition home or self-care (01) ==
LOC: LAB 09:43
PROVIDERS: PCP Internal Medicine Adolescent Medicine; Visit Provider Nurse Practitioner
DX: L03.90 Cellulitis, unspecified (principal); L97.319 Non-pressure chronic ulcer of right ankle with unspecified severity; L97.512 Non-pressure chronic ulcer of other part of right foot with fat layer exposed; L97.911 Non-pressure chronic ulcer of unspecified part of right lower leg limited to breakdown of skin; L97.421 Non-pressure chronic ulcer of left heel and midfoot limited to breakdown of skin; E08.621 Diabetes mellitus due to underlying condition with foot ulcer; L97.412 Non-pressure chronic ulcer of right heel and midfoot with fat layer exposed
CPT/HCPCS: 36415; 73610; 73630; 80053; 85025; 85651; 86140; 87070; 87205

== ENCOUNTER 2024-02-29 13:36 | Outpatient (RCR) | payer MEDICARE, MEDICAID, SELFPAY ==
--- NOTE | 2024-02-29 16:22 | HMH.RHREAS ---
Rehab Reassessment Rehab OP Re-assessment Start: 02/29/24 15:42 Freq: Status: Active Protocol: Document 02/29/24 15:44 PHOGARRETT (Rec: 02/29/24 16:21 PHORNE [id number]) E-signed By Bassam Vargas, PT Anabel Wound Assessment Tool Assessment Wound size 3= Length x Width 16.1--<36 sq cm Wound depth 5=Full thickness skin loss with extensive destruction, tissue necrosis Wound edges 4=Well-defined, not attached to base, rolled under, thickened Wound undermining 1=None present Necrotic tissue type 5=Firmly adherent, hard, black eschar Necrotic tissue amount 4=>50% and <75% of wound covered Exudate type 5=Purulent: thin or thick, opaque, rogers/yellow, withour without odor Exudate amount 4=Moderate Skin color surrounding wound 4=Dark red or purple &/or non- blanchable Peripheral tissue edema 2=Non-pitting edema extends <4 cm around wound Peripheral tissue induration 1=None present Granulation tissue 4=Urich, &/or dull, dusky red & /or fills < or = 25% of wound Epithelialization 5= < 25% wound covered Wound assessment total score 47 Rehab Re-assessment Subjective Subjective Pt has no c/o pain at this time. He presents with R lower leg dressing intact. He reports he was admitted to outside hospital for ~1 wk due to hyperkalemia among other problems recently. Objective Objective Notes R Inferior Anterior ankle wound: fully epithelialized. R foot toes 1-3 with new onset wound. L=4.0 cm, W= 6.0 cm, D = 0.2 cm. 75% of the wound bed presents as hard, black eschar/necrosis. all three toes appear necrotic with possible diminished arterial perfusion. Assessment Progress Assessment Slower Than Expected Assessment Notes Pt has shown improvement in R anterior ankle wound, however he now shows serious wounds on the R distal remaining toes 1 -3 which are likely due to decreased circulation of unknown etiology. Spoke with cutter and presser who recommended pt drive himself to outside hospital ED for vascular surgery intervention. Patient goals met ST/2 LT Plan Plan Change to providing care to R toes wound at this time vs R ankle, but will continue with plan of care on these new wounds as previously provided. Frequency of Therapy 1-2 x/wk Duration of therapy 4 wks Time and Billing Re-Eval Time 11 Re-Eval Billing Units 1 Charge for PT reassessment? Yes PHYSICIAN CERTIFICATION: I certify the specified therapy services for Cordell Boothe are required, authorized, and reviewed every 30 days.
== END 2024-02-29 23:59 | disposition home or self-care (01) ==
LOC: PT 13:36
PROVIDERS: Visit Provider Internal Medicine Adolescent Medicine
DX: S91.301A Unspecified open wound, right foot, initial encounter (principal)
CPT/HCPCS: 29580; 97164

== ENCOUNTER 2024-03-28 13:00 | Outpatient (RCR) | payer MEDICARE, MEDICAID, SELFPAY | END 2024-03-28 23:59 | disposition home or self-care (01) | LOC: PT 13:00 | PROVIDERS: Visit Provider Internal Medicine Adolescent Medicine | DX: S91.301A Unspecified open wound, right foot, initial encounter (principal) | CPT/HCPCS: 97597; 97598 ==

== ENCOUNTER 2024-06-09 13:12 | Emergency (ER) | payer MEDICARE, MEDICAID, SELFPAY ==
[2024-06-09 13:16] VITALS: BP 148/79; PULSE 84; RESP 15; TEMP 36.8; O2SAT 95; BMI 33.0
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
[2024-06-09 13:30] VITALS: PULSE 51; O2SAT 93
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
--- NOTE | 2024-06-09 13:41 | PC.NURSE ---
Addendum entered by Mery Walton RN 06/09/24 13:44: Pt noted to have numerous sized bed bugs on him. Pt assisted with cleaning and changed into a gown. Belongings placed into bag. Pt noted have scattered excoriated skin. Odor noted. Pt noted to have drainage on socks. Pt declines to let staff assess his feet. C-collar in place. Pt denies any c-spine tenderness. Denies any pain. a&Ox 4 Original Note: Pt noted to have numerous sized bed bugs on him. Pt assisted with cleaning and changed into a gown. Belongings placed into bag. Pt noted have scattered excoriated skin. Odor noted. Pt noted to have drainage on socks. Pt declines to let staff assess his feet. C-collar in place.
[2024-06-09 13:45] VITALS: PULSE 46; RESP 11; O2SAT 95
--- NOTE | 2024-06-09 13:59 | PC.NURSE ---
Pt to ct scan
[2024-06-09 14:15] VITALS: PULSE 48; RESP 16; O2SAT 95
[2024-06-09 14:30] VITALS: RESP 17; O2SAT 90
[2024-06-09] MEDS: NAPROXEN 500MG TABLET 500 MG PO (14:47)
--- NOTE | 2024-06-09 15:28 | PC.NURSE ---
[facility] transportation is in coming to [place] the patient
[2024-06-09 15:52] VITALS: BP 148/73; PULSE 75; RESP 18; TEMP 36.8; O2SAT 98
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
== END 2024-06-09 15:51 | disposition home or self-care (01) ==
PROVIDERS: Emergency Provider Student in an Organized Health Care Education/Training Program
DX: R51.9 Headache, unspecified (principal); L21.0 Seborrhea capitis; S40.811A Abrasion of right upper arm, initial encounter; B88.9 Infestation, unspecified; W57.XXXA Bitten or stung by nonvenomous insect and other nonvenomous arthropods, initial encounter; V49.40XA Driver injured in collision with unspecified motor vehicles in traffic accident, initial encounter
CPT/HCPCS: 70450; 72125; 99285